=== PATIENT | male | born 1975 | race Two or more races ===

== ENCOUNTER → 2020-06-11 08:17 | Outpatient (BNVA) | payer OTHER, SELFPAY | PROVIDERS: PCP Internal Medicine; Visit Provider Anesthesiology | DX: M47.26 Other spondylosis with radiculopathy, lumbar region (principal); M51.36 Other intervertebral disc degeneration, lumbar region; Z79.891 Long term (current) use of opiate analgesic | CPT/HCPCS: 99213 ==

== ENCOUNTER → 2020-07-15 16:04 | Outpatient (BNVA) | payer OTHER, SELFPAY | PROVIDERS: PCP Internal Medicine; Visit Provider Anesthesiology | DX: Z76.89 Persons encountering health services in other specified circumstances (principal) | CPT/HCPCS: 99212 ==

== ENCOUNTER 2020-07-21 07:30 | Outpatient (REF) | payer OTHER, SELFPAY ==
--- NOTE | 2020-07-21 07:36 | FL_ITS ---
EXAMINATION: XR FLUOROSCOPY WITH IMAGES CLINICAL INFORMATION: M51.36 - Other intervertebral disc degeneration, lumbar region COMPARISON: CT abdomen and pelvis 02/24/2018 TECHNIQUE: Fluoroscopy performed by Elinor Cho NP. Fluoroscopy time: 0.3 minutes Total dose: 10.63 mGy Images: 1 FINDINGS: Recent CT may suggest transitional vertebrae L5 with bilateral sacralization. The fluoroscopic spot view shows spinal needle directed towards the interlaminar region lower lumbar spine, approximately L4-L5. FL/FL guidance in treatment room IMPRESSION: Fluoroscopy for pain management procedure.
== END 2020-07-21 07:31 | disposition home or self-care (01) ==
LOC: HO.RADIR 07:30
PROVIDERS: Visit Provider Anesthesiology
DX: M51.36 Other intervertebral disc degeneration, lumbar region (principal); M47.26 Other spondylosis with radiculopathy, lumbar region; M54.31 Sciatica, right side
CPT/HCPCS: J3300; Q9967

== ENCOUNTER → 2020-08-05 09:30 | Outpatient (BNVA) | payer OTHER, SELFPAY | PROVIDERS: PCP Internal Medicine; Visit Provider Anesthesiology | DX: M47.26 Other spondylosis with radiculopathy, lumbar region (principal); M51.36 Other intervertebral disc degeneration, lumbar region | CPT/HCPCS: 99212 ==

== ENCOUNTER → 2020-09-03 14:45 | Outpatient (BNVA) | payer OTHER, SELFPAY | PROVIDERS: PCP Internal Medicine; Visit Provider Anesthesiology | DX: M47.26 Other spondylosis with radiculopathy, lumbar region (principal); M51.36 Other intervertebral disc degeneration, lumbar region | CPT/HCPCS: 99212 ==

== ENCOUNTER → 2020-09-30 14:48 | Outpatient (BNVA) | payer OTHER, SELFPAY | PROVIDERS: PCP Internal Medicine; Visit Provider Anesthesiology | DX: M47.26 Other spondylosis with radiculopathy, lumbar region (principal); M51.36 Other intervertebral disc degeneration, lumbar region | CPT/HCPCS: 99212 ==

== ENCOUNTER → 2020-10-28 14:42 | Outpatient (BNVA) | payer OTHER, SELFPAY | PROVIDERS: PCP Internal Medicine; Visit Provider Anesthesiology | DX: M47.26 Other spondylosis with radiculopathy, lumbar region (principal); M51.36 Other intervertebral disc degeneration, lumbar region; M54.31 Sciatica, right side; G89.4 Chronic pain syndrome; Z79.891 Long term (current) use of opiate analgesic | CPT/HCPCS: 99212 ==

== ENCOUNTER → 2020-11-04 09:31 | Outpatient (BNVA) | payer OTHER, SELFPAY | PROVIDERS: PCP Internal Medicine; Visit Provider Anesthesiology | DX: M47.26 Other spondylosis with radiculopathy, lumbar region (principal); M51.36 Other intervertebral disc degeneration, lumbar region; M54.31 Sciatica, right side; G89.4 Chronic pain syndrome; Z79.899 Other long term (current) drug therapy | CPT/HCPCS: 99212 ==

== ENCOUNTER 2021-02-05 08:42 | Day surgery (SDC) | payer OTHER, SELFPAY ==
[2021-02-01 15:00] VITALS: BMI 41.9
--- NOTE | 2021-02-04 09:26 | P.CONAN_ITS ---
Documented by User: Melania Leach 02/04/21 09:26 HPI - Anesthesia Eval Consult details Narrative: 45yo M for Lumbar Spinal Cord Simulation Trial FORMERLY [facility] Active Problems Active Problems: All Active Problems (Updated 02/01/21 @ 15:03 by Marion Rivera) Chronic pain syndrome (Acute) Right sided sciatica (Acute) Depression (Acute) GERD (gastroesophageal reflux disease) (Acute) Morbid obesity (Acute) Impaired glucose tolerance (Acute) Dyslipidemia (Acute) Essential hypertension (Acute) Disc degeneration, lumbar (Acute) Other spondylosis with radiculopathy, lumbar region (Acute) Past Medical History Medical History (Updated 02/05/21 @ 10:25 by Talia Perez) Chronic pain syndrome Depression Disc degeneration, lumbar Dyslipidemia Essential hypertension GERD (gastroesophageal reflux disease) Impaired glucose tolerance Morbid obesity Other spondylosis with radiculopathy, lumbar region Renal calculi Right sided sciatica Family History Family History Father Hypertension Sciatica Mother Stroke Hypertension Diabetes Brother Stroke Pancreatic cancer Surgical History Surgical History History of appendectomy History of extraction of renal calculus History of toe surgery History of vasectomy Social History Social History (Updated 02/05/21 @ 10:27 by Talia Perez) Alcohol intake: former Patient Tobacco Use Status: Current everyday Tobacco user Tobacco use type: Cigarette Cigarettes Per Day: 5 Years Smoked: 20 Smoked in Last 30 Days: Yes Use of substances other than those prescribed or required for medical reasons: Yes Substance Use Type: Marijuana Substance Use Frequency: Daily Last Used Substance: Days (ago) Last Used Substance Other:: Yesterday Are you DNR?: No Advance Directives: No Advance Directives Information Provided: No Advance Directives on File: No Meds Allergies Allergy/AdvReac Type Severity Reaction Status Date / Time No Known Allergies Allergy Verified 02/01/21 15:04 [No Known Allergies*] Exam Exam Date and Time: February 04, 2021 0926 Height,Weight and Vital Signs: Height 5 ft 6 in Weight 117.934 kg Assessment and Plan Assessment Anesthesia Assessment: Chart Reviewed Documented by User: Talia Perez 02/05/21 10:56 [facility] Past Medical History Medical History (Updated 02/05/21 @ 10:25 by Talia Perez) Chronic pain syndrome Depression Disc degeneration, lumbar Dyslipidemia Essential hypertension GERD (gastroesophageal reflux disease) Impaired glucose tolerance Morbid obesity Other spondylosis with radiculopathy, lumbar region Renal calculi Right sided sciatica Family History Family History Father Hypertension Sciatica Mother Stroke Hypertension Diabetes Brother Stroke Pancreatic cancer Family history of problems with anesthesia: No Surgical History Surgical History History of appendectomy History of extraction of renal calculus History of toe surgery History of vasectomy History of Problems with Anesthesia: Yes (?? h/o breathing slowed down ?? during appendectomy) Social History Social History (Updated 02/05/21 @ 10:27 by Talia Perez) Alcohol intake: former Patient Tobacco Use Status: Current everyday Tobacco user Tobacco use type: Cigarette Cigarettes Per Day: 5 Years Smoked: 20 Smoked in Last 30 Days: Yes Use of substances other than those prescribed or required for medical reasons: Yes Substance Use Type: Marijuana Substance Use Frequency: Daily Last Used Substance: Days (ago) Last Used Substance Other:: Yesterday Are you DNR?: No Advance Directives: No Advance Directives Information Provided: No Advance Directives on File: No Meds Allergies Allergy/AdvReac Type Severity Reaction Status Date / Time No Known Allergies Allergy Verified 02/01/21 15:04 [No Known Allergies*] Exam Height,Weight and Vital Signs: Vital Signs Temp Pulse Resp BP Pulse Ox 02/05/21 09:13 96.6 F L 97 16 147/87 H 97 Narrative Narrative: Lungs CTAB post albuterol treatment Airway Mallampati Class: III TM Dist: >3cm Neck ROM: Limited (Ok with extension. Neck and shoulder pain with side to side movement) Loose/Missing/Broken Teeth: Yes (Top front loose) Heart: RRR Lungs: Bilateral wheezes Assessment and Plan Assessment Anesthesia Assessment: Anesthesia Plan Discussed and Chart Reviewed Final Anesthetic Review NPO: Yes ASA Class: III Final Preanesthetic Review: No Changes in Pt Med Stat, Meds/Allgs Chart Reviewed, Consent Obtained/Reviewed and Anes Risks/Benef Reviewed Patient Risk: Intermediate Procedure Risk: Low Assessment/Block/Sedation in SS: Assess/Block/Sedation-SS Anesthetic Plan Anesthetic Plan: MAC: Disposition: Standard PACU
--- NOTE | ~2021-02-05 | FL_ITS ---
EXAMINATION: XR FLUOROSCOPY WITH IMAGES CLINICAL INFORMATION: Spinal cord stimulation trial. COMPARISON: None. TECHNIQUE: Fluoroscopy performed by Dr. Diaz King. Fluoroscopy time: 1.2 minutes DAP: 11.5 mGycm2 Images: 3 FINDINGS: Images demonstrate leads projecting over the lower thoracic spinal canal. FL/FL guidance in OR IMPRESSION: Fluoroscopy guidance for spinal cord stimulation trial.
[2021-02-05 09:13] VITALS: BP 147/87; PULSE 97; RESP 16; TEMP 35.9; O2SAT 97
[2021-02-05] MEDS: Lactated Ringers 1,000 ML 100 ML IVCONT (09:31)
[2021-02-05] MEDS: Albuterol Sulfate (0.083%) 2.5 MG/3 ML VIAL.NEB INHALE (10:31)
[2021-02-05 10:32] VITALS: PULSE 76; O2SAT 98
--- NOTE | 2021-02-05 10:33 | PC.NURSE ---
receving rtesp treatment by resp.
--- NOTE | 2021-02-05 11:23 | P.HPSUR_ITS ---
Pre-Procedural Eval Section A The patient is an INPATIENT: No Changes since office visit: Yes Patient answered all questions The History & Physical has been completed within 30 days and I have reviewed it.: No Section B Chief Complaint: Disc Degeneration, other Spondylosis Details of Present Illness: as above Relevant Family History (Specify if Yes): No Relevant Social History: None Present Medications: see Short Stay Collaborative assessment Medical History: No relevant PMH History of Previous Operations: No relevant previous surgery Allergies: Allergies Allergy/AdvReac Type Severity Reaction Status Date / Time No Known Allergies Allergy Verified 02/01/21 15:04 [No Known Allergies*] Review of Systems Sugical H&P ROS: Negative: Constitution, Cardiovascular, Respiratory, Neurological, Psychiatric, Hem-Onc, Allergic/Immunologic, Gastrointestinal, Genitourinary, Musculoskeletal, Integumentary, Endocrine and Eyes/Ears/Nose /Throat Exam Surgical H&P Exam: Normal: HEENT, Normal: Heart, Normal: Lungs, Normal: Extremities, Normal: Abdomen, Normal: Skin and Normal: Neurological Plan Diagnosis/Plan: Unchanged I have reviewed the history and physical and performed a pertinent physical examination on my patient. No changes have occurred unless specified.
[2021-02-05 12:41] VITALS: BP 143/91; PULSE 85; RESP 16; TEMP 36.7; O2SAT 96
--- NOTE | 2021-02-05 12:55 | P.BOP_ITS ---
Brief Operative Note Date of Service: 02/05/21 Pre-op diagnosis: Spondylosis lumbar spine disc degeneration lumbar spine Post-op diagnosis: same Procedure: Trial of [employer] spinal cord stimulation. Implants: None per Surgeon: Diaz King MD Anesthesia: MAC Was an Phone Counselor used for this Procedure?: No Estimated blood loss (mL): 2 Condition: stable Disposition: PACU
[2021-02-05 12:56] VITALS: BP 148/94; PULSE 74; RESP 17; TEMP 36.7; O2SAT 98
--- NOTE | 2021-02-05 12:57 | W.PM.OPN ---
Operative Note Operative Note Date of Service: 02/05/21 Narrative: After obtaining informed consent patient was brought to the operating room, HE was positioned prone on operating table, [place] [employer] monitors were applied and patient was deeply sedated. Time-out was performed delineating correct site, side, the nature of the procedure, patient's allergy, preoperative antibiotic if needed. All operating room staff was participating in OR time-out procedure. Patient's entire back was prepped with ChloraPrep twice and draped with full body fenestrated drape. Sterilely draped C-arm was brought over operating field and sqare picture of T9 AND TT10 vertebrae as were demonstrated on the screen. Attention FIRST was concentrated on the T12 L1 _epidural interspace on the right. The location of the projection of the right pedicle center of the L2 vertebra was found on the skin using C-arm. This location was injected with mixture of lidocaine 2% and Marcaine 0.5% 5 cc. After that 11 blade was used to make a chyna on the skin. 10 cm 14 gauge curved introducer epidural needle was inserted through the chyna and advanced to T9-[id number] interspace. The advancement of the needle was performed on anterior posterior and lateral views. Guitar wire and loss of resistance technique were used to locate epidural space. When guitar wire was spread in the epidural fashion, epidural lead was inserted through the skin and it was advanced to T8 position SLIGHTLY right OF THE MIDLINE. After that location of the projection of the LEFT pedicle center of the L2 vertebra was found on the skin using C-arm. This location was injected with mixture of lidocaine 2% and Marcaine 0.5% 5 cc. After that 11 blade was used to make a chyna on the skin. 10 cm 14 gauge straight introducer epidural needle was inserted through the chyna and advanced to T12-L1 EPIDURAL INTERSPACE. The advancement of the needle was performed on anterior posterior and lateral views. Guitar wire and loss of resistance technique were used to locate epidural space. When guitar wire was spread in the epidural fashion, epidural lead was inserted through the needle and advanced to the T8 epidural epidural space slightly left to the midline At this moment IMPEDANCE was checked . The patient was awaken and epidural leads were stimulated. The patient reported stimulation on the right corresponding to the pain on the right lower extremity. He also reported good stimulation in the area of lower back pain. After satisfactory position of the leads were established the needles were withdrawn, the stylette wires were removed from the epidural leads. The anchoring devices were dislodged on the leads and advanced to the level of the skin. The anchoring devices were sutured with two 0-0 silk sutures to the skin of the patient. The leads were connected to testing device. Bacitracin ointment was applied to the entrance point of bilateral needles. Sterile dressing was applied to the patient's back. The testing device was also taped to the patient's back. Upon completion of the procedure the patient was taken to PACU where HE recovered uneventfully.
== END 2021-02-05 13:25 | disposition home or self-care (01) ==
PROVIDERS: PCP Internal Medicine; Visit Provider Anesthesiology
PROC: (CPT 63650; principal; 2021-02-05 10:40)
DX: M51.36 Other intervertebral disc degeneration, lumbar region (principal); M47.26 Other spondylosis with radiculopathy, lumbar region; G89.4 Chronic pain syndrome; F32.9 Major depressive disorder, single episode, unspecified; I10 Essential (primary) hypertension; E66.01 Morbid (severe) obesity due to excess calories; Z79.899 Other long term (current) drug therapy; F17.210 Nicotine dependence, cigarettes, uncomplicated; F12.90 Cannabis use, unspecified, uncomplicated
CPT/HCPCS: 63650 ×2; C1778; J0690; J1100; J2250; J2405; J3010

== ENCOUNTER → 2021-02-10 08:55 | Outpatient (BNVA) | payer OTHER, SELFPAY | PROVIDERS: PCP Internal Medicine; Visit Provider Anesthesiology | DX: M47.26 Other spondylosis with radiculopathy, lumbar region (principal); M51.36 Other intervertebral disc degeneration, lumbar region; M54.31 Sciatica, right side; G89.4 Chronic pain syndrome | CPT/HCPCS: 99212 ==

== ENCOUNTER → 2021-02-12 14:43 | Outpatient (BNVA) | payer OTHER, SELFPAY | PROVIDERS: PCP Internal Medicine; Visit Provider Anesthesiology ==

== ENCOUNTER 2021-04-04 15:36 | Inpatient (IN) | payer OTHER, SELFPAY ==
--- NOTE | ~2021-04-04 | FL_ITS ---
EXAMINATION: XR FLUOROSCOPY WITH IMAGES CLINICAL INFORMATION: Left hydronephrosis, distal left ureteral calculus on CT. COMPARISON: CT abdomen and pelvis noncontrast 04/16/2021 TECHNIQUE: Fluoroscopy performed by Dr. Giorgio Valdez. Fluoroscopy time: 0.5 minutes DAP: 4.56 Gycm2 Images: 4 FINDINGS: There is guidewire and some contrast in the left ureter. The ureteral calculus is questionably seen on one of the images at level lower SI joint. The final images show left ureteral stent in position. FL/FL guidance in OR IMPRESSION: Fluoroscopy for urologic procedure. Left ureteral stent placed.
--- NOTE | ~2021-04-04 | CT_ITS ---
EXAMINATION: CT ABDOMEN AND PELVIS WITHOUT CONTRAST CLINICAL INFORMATION: Flank pain, history of kidney stones COMPARISON: 02/24/2018 TECHNIQUE: Multidetector volumetric imaging was performed from the superior aspect of the liver through the pubic symphysis. Sagittal and coronal reformatted images were obtained on the technologist's workstation. This CT examination was performed using dose optimization techniques as appropriate, variously including the following: *Automated exposure control *Adjustment of mA and/or kV according to patient size (this includes techniques or standardized protocols for targeted exams where dose is matched to indication/reason for exam; i.e. extremities or head) *Use of iterative reconstruction technique DLP: 538 mGy-cm FINDINGS: LUNG BASES: Stable nodularity right lung base LIVER, GALLBLADDER, AND BILIARY TREE: The liver is normal in size, shape, and attenuation. No focal hepatic lesion or biliary ductal dilatation is present. The gallbladder is unremarkable with no evidence of radiopaque gallstones, gallbladder wall thickening, or obvious pericholecystic inflammatory changes. PANCREAS: Unremarkable. SPLEEN: Unremarkable. ADRENAL GLANDS: Unremarkable. KIDNEYS AND URETERS: Mild hydronephrosis on the left. Ureter is prominent. This does lead up to a 5 mm calculus distal left ureter. BLADDER: Unremarkable. GASTROINTESTINAL TRACT: The small and large bowel are unremarkable. The appendix is unremarkable. ABDOMINAL WALL: No significant hernia is appreciated. LYMPH NODES: Normal. VASCULAR: Unremarkable. PELVIC VISCERA: Unremarkable. OSSEOUS STRUCTURES: Unremarkable. CT/CT abdomen pelvis wo con IMPRESSION: Mild hydronephrosis on the left caused by a 5 mm calculus in the distal left ureter.
[2021-04-04 15:38] VITALS: BP 150/90; PULSE 96; O2SAT 98
[2021-04-04 15:51] VITALS: BP 178/99; PULSE 65; RESP 20; TEMP 36.7; O2SAT 97
[2021-04-04 17:11] VITALS: O2SAT 100; BMI 40.3
--- NOTE | 2021-04-04 17:21 | ED.ABDPAIN ---
HPI - Abdominal Pain General Chief Complaint: Abdominal Pain Stated Complaint: abd pain Time Seen by Provider: 04/04/21 17:14 Source: patient Mode of arrival: ambulatory Limitations: no limitations History of Present Illness HPI narrative: pt with hx of kidney stones notied sharp pain started yesterday in L LQ radiating to L flank with nausea and vomiting multiple times.no diarrhea /hematuria , feels pain similar to that in past when he had stone, pt passed small stones 2 yrs ago Related Data Home Medications Medication Instructions Recorded Confirmed hydroxyzine pamoate 25 mg capsule 25 mg PO TID 04/04/21 mirtazapine 15 mg tablet 7.5 mg PO BEDTIME 04/04/21 Previous Rx's Medication Instructions Recorded omeprazole 40 mg capsule,delayed 40 mg PO QAM #90 cap 09/02/20 release lisinopril 40 mg tablet 40 mg PO DAILY 90 Days #90 tab 09/22/20 amlodipine 10 mg tablet 10 mg PO DAILY 90 Days #90 tab 12/28/20 gabapentin 300 mg capsule 300 mg PO BEDTIME 90 Days #90 cap 12/28/20 gabapentin 100 mg capsule 100 mg PO BID 90 Days #180 cap 03/31/21 Allergies Allergy/AdvReac Type Severity Reaction Status Date / Time No Known Allergies Allergy Verified 02/12/21 15:35 [No Known Allergies*] Review of Systems Review of Systems Constitutional : No Weight loss, No Fever, No Chills ENT/Mouth : No sore throat, No Rhinorrhea Eyes: No Eye Pain, No Swelling Cardiovascular : No Chest Pain, no palpitations Respiratory : No Cough, No Sputum, no shortness of breath Gastrointestinal : + Nausea, + Vomiting, No Diarrhea, No abdominal Pain, no black stools Genitourinary : No Dysuria, No Urinary Frequency Musculoskeletal : No joint pain, No Myalgias, No Joint Swelling Skin : No Skin Lesions, No rash Neuro : No Weakness, No Numbness, No Dizziness, No Headache Psych : No Anxiety/Panic, No Depression Heme/Lymph: No Bruising, No Lymphadenopathy Endocrine : No Polyuria, No Polydipsia All other systems reviewed and are negative Physical Exam Vital Signs: Vital Signs: Last Vital Signs Temp 97.9 F 04/04/21 23:04 Pulse 76 04/04/21 23:04 Resp 18 04/04/21 23:04 BP 126/65 04/04/21 23:04 Pulse Ox 93 04/04/21 23:04 Body Mass Index 40.3 Const: General: healthy appearing and acute distress moderate Nutritional Appearance: average body habitus and well nourished Orientation/consciousness: patient oriented x3 HENMT: Head: Yes atraumatic Mouth: Normal oral and palatal mucosa present Eyes: General: appearance normal, both eyes and all related structures Resp: Effort & Inspection: able to speak in complete sentences Auscultation: clear to auscultation bilaterally Cardio: Jugular venous distension: no JVD Rate: regular rate Rhythm: regular rhythm Heart sounds: S1 normal heart sound present and S2 normal heart sound present GI: Inspection: Yes normal to inspection Palpation (GI): Soft to palpation and Tenderness to palpation present (GI) in the LLQ Auscultation: normal bowel sounds : General: Yes CVA tenderness on the left Back/Spine/Pelvis: Back: CVA tenderness Thoracic/Lumbar Spine: No thoracic spinal tenderness and No lumbar spinal tenderness Neuro: General: patient oriented x3 MDM - Abdominal Pain MDM Narrative Medical decision making narrative: Patient with obstructive left ureteric stone with leukocytosis and UTI will admit patient for IV antibiotics case discussed Dr. Valdez urologist will follow the patient on the floor patient feeling much better after pain medication although required multiple doses Lab Data Attestation: I reviewed the patient's lab results. Result diagrams: 04/04/21 17:20 04/04/21 17:20 Labs: Lab Results 04/04/21 04/04/21 04/04/21 Range/Units 17:20 17:20 20:47 WBC 19.1 H (4.8-10.8) X10*3/uL RBC 5.47 (4.60-5.80) X10*6/uL Hgb 16.1 (14.0-18.0) g/dl Hct 47.8 (42-52) % MCV 87.4 (80-98) fL MCH 29.4 (27.0-33.0) pg MCHC 33.7 (31.0-36.0) g/dl RDW 13.4 (11.0-16.0) % Plt Count 449 H (160-400) X10*3/uL MPV 10.0 (9.4-12.4) fL Immature Gran % (Auto) 0.5 H (0.0-0.4) % Neut % (Auto) 74.4 H (45-73) % Lymph % (Auto) 19.2 L (20-40) % [place]ison % (Auto) 4.3 (2-11) % Eos % (Auto) 1.0 (0-4) % Baso % (Auto) 0.6 (0-2) % Lymph # (Auto) 3.7 (1.2-4.9) X10*3/uL Addison # (Auto) 0.8 (0.1-1.2) X10*3/uL Eos # (Auto) 0.2 (0.0-0.4) X10*3/uL Baso # (Auto) 0.1 (0.0-0.2) X10*3/uL Abs Immat Gran (auto) 0.09 H (0.00-0.03) X10*3/uL Absolute Neuts (auto) 14.2 H (2.0-8.3) X10*3/uL Absolute Nucleated RBC 0.000 (0.0-0.012) X10*3/uL Nucleated RBC % (auto) 0.0 (0.0-0.2) /100WBC Sodium 142 (135-145) mmol/L Potassium 4.7 (3.3-5.1) mmol/L Chloride 108 (96-108) mmol/L Carbon Dioxide 19 L (22-29) mmol/L Anion Gap 20 (12-20) BUN 14 (9-16) mg/dL Creatinine 1.30 (0.5-1.4) mg/dL Estim Creat Clear Calc 83.9 Estimated GFR 59 Random Glucose 174 H (60-115) mg/dL Lactic Acid (0.5-2.0) mmol/L Calcium 9.8 (8.4-10.2) mg/dL Urine Color ACE Urine Appearance TURBID Urine pH 6.5 (5.0-8.0) Ur Specific [place] >= 1.030 H (1.005-1.025) Urine Protein 3+ H (NEG-TRACE) MG/DL Urine Glucose (UA) NEG (NEG) MG/DL Urine Ketones 40 (NEG) MG/DL Urine Blood 3+ H (NEG) Urine Nitrite POS H (NEG) Ur Leukocyte Esterase TRACE H (NEG) Urine RBC TNTC H (0) /HPF Urine WBC 10-14 H (0-4) /HPF Ur Squamous Epith Cells TRACE /LPF Amorphous Sediment 2+ /LPF Urine Bacteria TRACE /LPF Urine Mucus 2+ /LPF Coronavirus (PCR) (Negative) Influenza Type A (PCR) (Negative) Influenza Type B (PCR) (Negative) RSV RNA Qual (PCR) (Negative) 04/04/21 04/04/21 Range/Units 21:58 22:50 WBC (4.8-10.8) X10*3/uL RBC (4.60-5.80) X10*6/uL Hgb (14.0-18.0) g/dl Hct (42-52) % MCV (80-98) fL MCH (27.0-33.0) pg MCHC (31.0-36.0) g/dl RDW (11.0-16.0) % Plt Count (160-400) X10*3/uL MPV (9.4-12.4) fL Immature Gran % (Auto) (0.0-0.4) % Neut % (Auto) (45-73) % Lymph % (Auto) (20-40) % Addison % (Auto) (2-11) % Eos % (Auto) (0-4) % Baso % (Auto) (0-2) % Lymph # (Auto) (1.2-4.9) X10*3/uL [place] # (Auto) (0.1-1.2) X10*3/uL Eos # (Auto) (0.0-0.4) X10*3/uL Baso # (Auto) (0.0-0.2) X10*3/uL Abs Immat Gran (auto) (0.00-0.03) X10*3/uL Absolute Neuts (auto) (2.0-8.3) X10*3/uL Absolute Nucleated RBC (0.0-0.012) X10*3/uL Nucleated RBC % (auto) (0.0-0.2) /100WBC Sodium (135-145) mmol/L Potassium (3.3-5.1) mmol/L Chloride (96-108) mmol/L Carbon Dioxide (22-29) mmol/L Anion Gap (12-20) BUN (9-16) mg/dL Creatinine (0.5-1.4) mg/dL Estim Creat Clear Calc Estimated GFR Random Glucose (60-115) mg/dL Lactic Acid 0.8 (0.5-2.0) mmol/L Calcium (8.4-10.2) mg/dL Urine Color Urine Appearance Urine pH (5.0-8.0) Ur Specific [place] (1.005-1.025) Urine Protein (NEG-TRACE) MG/DL Urine Glucose (UA) (NEG) MG/DL Urine Ketones (NEG) MG/DL Urine Blood (NEG) Urine Nitrite (NEG) Ur Leukocyte Esterase (NEG) Urine RBC (0) /HPF Urine WBC (0-4) /HPF Ur Squamous Epith Cells /LPF Amorphous Sediment /LPF Urine Bacteria /LPF Urine Mucus /LPF Coronavirus (PCR) NEGATIVE (Negative) Influenza Type A (PCR) NEGATIVE (Negative) Influenza Type B (PCR) NEGATIVE (Negative) RSV RNA Qual (PCR) NEGATIVE (Negative) Imaging Data CT scan - abdomen: Radiologist's impression: Patient: Jose Irizarry MR#: [id number] : 1975 Acct:[id number] Age/Sex: 46 / M ADM Date: 04/04/21 Loc: HO.ED Attending Dr: Ordering Physician: Andrzej Perry MD Date of Service: 04/04/21 Procedure(s): CT abdomen pelvis wo con Accession Number(s): [id number] cc: Andrzej Perry MD~ EXAMINATION: CT ABDOMEN AND PELVIS WITHOUT CONTRAST? CLINICAL INFORMATION: Flank pain, history of kidney stones? COMPARISON: 02/24/2018? TECHNIQUE: Multidetector volumetric imaging was performed from the superior aspect of the liver through the pubic symphysis. Sagittal and coronal reformatted images were obtained on the technologist's workstation.? This CT examination was performed using dose optimization techniques as appropriate, variously including the following: *Automated exposure control *Adjustment of mA and/or kV according to patient size (this includes techniques or standardized protocols for targeted exams where dose is matched to indication/reason for exam; i.e. extremities or head) *Use of iterative reconstruction technique DLP: 538 mGy-cm FINDINGS: LUNG BASES: Stable nodularity right lung base? LIVER, GALLBLADDER, AND BILIARY TREE: The liver is normal in size, shape, and attenuation. No focal hepatic lesion or biliary ductal dilatation is present. The gallbladder is unremarkable with no evidence of radiopaque gallstones, gallbladder wall thickening, or obvious pericholecystic inflammatory changes.? PANCREAS: Unremarkable.? SPLEEN: Unremarkable.? ADRENAL GLANDS: Unremarkable.? KIDNEYS AND URETERS: Mild hydronephrosis on the left. Ureter is prominent. This does lead up to a 5 mm calculus distal left ureter.? BLADDER: Unremarkable.? GASTROINTESTINAL TRACT: The small and large bowel are unremarkable. The appendix is unremarkable.? ABDOMINAL WALL: No significant hernia is appreciated.? LYMPH NODES: Normal. VASCULAR: Unremarkable. PELVIC VISCERA: Unremarkable.? OSSEOUS STRUCTURES: Unremarkable.? CT/CT abdomen pelvis wo con IMPRESSION: Mild hydronephrosis on the left caused by a 5 mm calculus in the distal left ureter.? Discharge Plan Discharge Clinical Impression: Calculus of kidney, Acute UTI Patient Disposition: Admitted As Inpatient FORMERLY [facility] Past Medical History Medical History Chronic pain syndrome Depression Disc degeneration, lumbar Dyslipidemia Essential hypertension GERD (gastroesophageal reflux disease) Impaired glucose tolerance Morbid obesity Other spondylosis with radiculopathy, lumbar region Renal calculi Right sided sciatica Surgical History History of appendectomy History of extraction of renal calculus History of toe surgery History of vasectomy Family History Family History Father Hypertension Sciatica Mother Stroke Hypertension Diabetes Brother Stroke Pancreatic cancer Social History Social History Alcohol intake: former Patient Tobacco Use Status: Current everyday Tobacco user Tobacco use type: Cigarette Cigarettes Per Day: 5 Years Smoked: 20 Substance Use Type: Marijuana Advance Directives: No Advance Directives Information Provided: No
[2021-04-04 17:23] LABS: MANUAL DIFF FLAG NO
[2021-04-04] MEDS: Ketorolac Tromethamine 15 MG/ML VIAL IVPUSH (17:25)
[2021-04-04] MEDS: Morphine Sulfate 4 MG/ML CARTRIDGE IVPUSH ×2 (17:26→19:09)
[2021-04-04] MEDS: 0.9 % Sodium Chloride 1,000 ML 999 ML IVCONT ×2 (17:27→20:32)
[2021-04-04 17:29] LABS: Basophils Absolute Auto 0.1 X10*3/uL (0.0-0.2); Basophils Percent Auto 0.6 % (0-2); Eosinophils Absolute Auto 0.2 X10*3/uL (0.0-0.4); Hematocrit 47.8 % (42-52); Hemoglobin 16.1 g/dl (14.0-18.0); Imm Gran Abs Auto 0.09 X10*3/uL (0.00-0.03); Imm Gran Pct Auto 0.5 % (0.0-0.4); Lymphocytes Absolute Auto 3.7 X10*3/uL (1.2-4.9); Lymphocytes Percent Auto 19.2 % (20-40); Mean Corpuscular HGB Conc 33.7 g/dl (31.0-36.0); Mean Corpuscular Hemoglobin 29.4 pg (27.0-33.0); Mean Corpuscular Volume 87.4 fL (80-98); Monocytes Absolute Auto 0.8 X10*3/uL (0.1-1.2); Monocytes Percent Auto 4.3 % (2-11); Neutrophils Absolute Auto 14.2 X10*3/uL (2.0-8.3); Neutrophils Percent Auto 74.4 % (45-73); Platelet Count 449 X10*3/uL (160-400); Red Blood Count 5.47 X10*6/uL (4.60-5.80); Red Cell Distribution Width 13.4 % (11.0-16.0); White Blood Count 19.1 X10*3/uL (4.8-10.8)
[2021-04-04 17:52] LABS: Anion Gap 20 (12-20); Blood Urea Nitrogen 14 mg/dL (9-16); Calcium 9.8 mg/dL (8.4-10.2); Carbon Dioxide 19 mmol/L (22-29); Chloride 108 mmol/L (96-108); Creatinine Clr Calc Pharmacy 83.9; Estimated Glomerular Filt Rate 59; Glucose Random 174 mg/dL (60-115); Potassium 4.7 mmol/L (3.3-5.1); Sodium 142 mmol/L (135-145)
[2021-04-04] MEDS: Tamsulosin HCL 0.4 MG CAPSULE 0.8 MG PO (18:45)
--- NOTE | 2021-04-04 19:55 | PC.NURSE ---
Pt requesting pain medication, MD aware. Plan for Dilaudid, awaiting order.
--- NOTE | 2021-04-04 20:23 | PC.NURSE ---
Pt remains calling out in room for pain medication. This RN reminding MD, awaiting order.
[2021-04-04] MEDS: HYDROmorphone HCl 1 MG/ML SYRINGE IVPUSH (20:32)
[2021-04-04 20:35] VITALS: BP 154/102; PULSE 77; RESP 24; O2SAT 95
--- NOTE | 2021-04-04 20:37 | PC.NURSE ---
Pt medicated for 10/10 pain to left flank. VSS at this time. Pt aware of urine sample, provided with urinal. Call nieves within reach, continue to monitor.
--- NOTE | 2021-04-04 20:50 | PC.NURSE ---
UA obtained and sent. Urine noted to be dark brown in color, aware.
[2021-04-04 20:53] LABS: Glucose Urine UA NEG (NEG); Leukocyte Esterase Urine TRACE (NEG); Nitrite Urine POS (NEG); PH 6.5 (5.0-8.0); Specific Gravity - Urine >= 1.030 (1.005-1.025); UACC Culture Trigger YES; Urine Blood 3+ (NEG); Urine Ketones 40 MG/DL (NEG); Urine Protein 3+ MG/DL (NEG-TRACE)
[2021-04-04 21:02] LABS: Appearance Urine TURBID
[2021-04-04 21:03] LABS: Bacteria Urine TRACE /LPF; Color Urine AMBER; Mucus Urine 2+ /LPF; RBC Urine TNTC /HPF (0); Squamous Epithelial Cell Urine TRACE /LPF
[2021-04-04 21:04] LABS: Amorphous Sediment Urine 2+ /LPF
[2021-04-04] MEDS: cefTRIAXone sodium 1 GM in 0.9 % Sodium Chloride 50 ML IV (22:11)
--- NOTE | 2021-04-04 22:12 | PC.NURSE ---
BCX x 2 and lactic obtained by set up mold technician. Pt medicated per OCT.
[2021-04-04 22:22] LABS: Lactic Acid 0.8 mmol/L (0.5-2.0)
--- NOTE | 2021-04-04 22:51 | PC.NURSE ---
Covid swab obtained and sent. Med Rec completed at bedside with pt.
[2021-04-04 23:04] VITALS: BP 126/65; PULSE 76; RESP 18; TEMP 36.6; O2SAT 93
--- NOTE | 2021-04-04 23:27 | PC.NURSE ---
Hospitalist at bedside for primary eval.
[2021-04-04 23:42] LABS: Influenza A PCR NEGATIVE (Negative); Influenza B PCR NEGATIVE (Negative); Resp Syncy Virus RNA Qual PCR NEGATIVE (Negative); SARS COV2 PCR INHOUSE NEGATIVE (Negative)
--- NOTE | 2021-04-04 23:44 | PM.IMHP ---
History of Present Illness Date of Service: 04/04/21 Chief Complaint: Left flank pain 46-year-old male with a past medical history of hypertension, hyperlipidemia, GERD, obesity, glucose intolerance, history of renal calculi, chronic pain syndrome, history of sciatica presented to the hospital with a chief complaint of left flank pain. Patient mentions that symptoms started yesterday; left flank pain, sharp in natu, 7/10 in intensity, no associated nausea vomiting; denies any associated burning frequency ordered. Today he had the pain again which is 10/10 in intensity; hence came to the ER for further evaluation. Denies any blood in the urine. Denies any chest pain palpitations. Reports mild dizziness/lightheadedness. Denies any falls or loss of consciousness. Denies any cough or sputum production. Review of all other systems is negative except mentioned above ER course: Per ER team patient noted to have leukocytosis, abnormal urinalysis consistent with UTI, given ceftriaxone; CT scan showed left-sided distal ureter 5 mm calculus and mild hydronephrosis; admitted for further management. [facility] Medical History (Updated 04/28/21 @ 11:13 by Lucia Severino MD) Chronic pain syndrome Depression Disc degeneration, lumbar Dyslipidemia Essential hypertension GERD (gastroesophageal reflux disease) Impaired glucose tolerance Mild recurrent major depression Moderately severe major depression Morbid obesity Other spondylosis with radiculopathy, lumbar region Renal calculi Right sided sciatica Wheezing Family History Father Hypertension Sciatica Mother Stroke Hypertension Diabetes Brother Stroke Pancreatic cancer Family/Other Substance use disorder Surgical History History of appendectomy History of extraction of renal calculus History of toe surgery History of vasectomy Social History Household Members: Family Housing: House Do you presently have visiting nurse or other home services: No Alcohol intake: former Patient Tobacco Use Status: Current everyday Tobacco user Tobacco use type: Cigarette Cigarette Packs Per Day: 1 Cigarettes Per Day: 3 Years Smoked: 20 e-Cigarette/Vaping Use: Never Used Second Hand Smoke Exposure: Yes Substance Use Type: Marijuana service: No Current occupational status: unemployed Meds Allergies Allergy/AdvReac Type Severity Reaction Status Date / Time No Known Allergies Allergy Verified 04/28/21 10:00 [No Known Allergies*] Active Medications: Current Medications Generic Name Dose Route Start Last Admin Trade Name Iker PRN Reason Stop Dose Admin Acetaminophen 650 mg 04/04/21 23:41 Acetaminophen 325 Mg Tablet PO Q6H PRN Pain, Mild (Pain Scale 1-3) Hydromorphone HCl 0.5 mg 04/04/21 23:41 Hydromorphone Hcl 0.5 Mg/0.5 Ml Syringe IVPUSH Q4H PRN Pain, Severe (Pain Scale 7-10) Dextrose/Sodium Chloride 1,000 mls @ 75 mls/hr 04/04/21 23:45 D5ns IVCONT .[id number] DEONTE Ceftriaxone Sodium 1 gm/ 50 mls @ 100 mls/hr 04/04/21 23:45 Sodium Chloride IV Q24H DEONTE Melatonin 6 mg 04/04/21 23:41 Melatonin 3 Mg Tablet PO BEDTIME PRN Insomnia Senna 17.2 mg 04/04/21 23:41 Sennosides 8.6 Mg Tablet PO BEDTIME PRN Constipation Sodium Chloride 3 ml 04/05/21 00:00 0.9 % Sodium Chloride Flush 3 Ml Syringe IVFLUSH QSHIFT [facility] Home Medications Medication Instructions Recorded Confirmed Last Taken Type hydroxyzine pamoate 25 mg capsule 25 mg PO TID 04/04/21 04/28/21 04/04/21 07:00 History acetaminophen 500 mg tablet 1 tab PO Q6H PRN 04/05/21 04/28/21 Unknown History sertraline 50 mg tablet 50 mg PO DAILY 04/05/21 04/28/21 04/04/21 History mirtazapine 15 mg tablet 15 mg PO BEDTIME 04/12/21 04/28/21 Unknown History Physical Exam Vital Signs and Narrative: Vital Signs: Last Vital Signs Temp 97.9 F 04/04/21 23:04 Pulse 76 04/04/21 23:04 Resp 18 04/04/21 23:04 BP 126/65 04/04/21 23:04 Pulse Ox 93 04/04/21 23:04 Body Mass Index 40.3 Gen: Appears be in no acute distress HEENT: NCAT, Moist mucosa. Pulmonary: Vesicular breath sounds, fair air entry CVS: Normal S1-S2 Abdomen: BS+, Soft, tender in the left flank Extremities: Warm well perfused Neuro: Alert and awake. Results Labs CBC and Chem 7: 04/06/21 08:07 04/06/21 08:07 Labs: Laboratory Results - last 24 hr 04/04/21 04/04/21 04/04/21 17:20 17:20 20:47 MCV 87.4 MCH 29.4 MCHC 33.7 RDW 13.4 Plt Count 449 H MPV 10.0 Immature Gran % (Auto) 0.5 H Neut % (Auto) 74.4 H Lymph % (Auto) 19.2 L [place] % (Auto) 4.3 Eos % (Auto) 1.0 Baso % (Auto) 0.6 Lymph # (Auto) 3.7 [place] # (Auto) 0.8 Eos # (Auto) 0.2 Baso # (Auto) 0.1 Abs Immat Gran (auto) 0.09 H Absolute Neuts (auto) 14.2 H Absolute Nucleated RBC 0.000 Nucleated RBC % (auto) 0.0 Anion Gap 20 Estim Creat Clear Calc 83.9 Estimated GFR 59 Random Glucose 174 H Lactic Acid Calcium 9.8 Urine Color ACE Urine Appearance TURBID Urine pH 6.5 Ur Specific Barry >= 1.030 H Urine Protein 3+ H Urine Glucose (UA) NEG Urine Ketones 40 Urine Blood 3+ H Urine Nitrite POS H Ur Leukocyte Esterase TRACE H Urine RBC TNTC H Urine WBC 10-14 H Ur Squamous Epith Cells TRACE Amorphous Sediment 2+ Urine Bacteria TRACE Urine Mucus 2+ Coronavirus (PCR) Influenza Type A (PCR) Influenza Type B (PCR) RSV RNA Qual (PCR) 04/04/21 04/04/21 21:58 22:50 MCV MCH MCHC RDW Plt Count MPV Immature Gran % (Auto) Neut % (Auto) Lymph % (Auto) [place] % (Auto) Eos % (Auto) Baso % (Auto) Lymph # (Auto) [place] # (Auto) Eos # (Auto) Baso # (Auto) Abs Immat Gran (auto) Absolute Neuts (auto) Absolute Nucleated RBC Nucleated RBC % (auto) Anion Gap Estim Creat Clear Calc Estimated GFR Random Glucose Lactic Acid 0.8 Calcium Urine Color Urine Appearance Urine pH Ur Specific Barry Urine Protein Urine Glucose (UA) Urine Ketones Urine Blood Urine Nitrite Ur Leukocyte Esterase Urine RBC Urine WBC Ur Squamous Epith Cells Amorphous Sediment Urine Bacteria Urine Mucus Coronavirus (PCR) NEGATIVE Influenza Type A (PCR) NEGATIVE Influenza Type B (PCR) NEGATIVE RSV RNA Qual (PCR) NEGATIVE Imaging Radiologist's Impressions: Impressions Abdomen/Pelvis CT 04/04/21 17:19 IMPRESSION: Mild hydronephrosis on the left caused by a 5 mm calculus in the distal left ureter. Assessment and Plan (1) Acute UTI: Status: Acute 46-year-old male with a past medical history of hypertension, hyperlipidemia, GERD, history of renal calculi, obesity presented to the hospital with a chief complaint of left flank pain; noted to have left distal ureteral calculus/mild hydronephrosis/UTI; admitted for further management. Left distal ureter renal calculus/hydronephrosis/UTI: Pain control Continue ceftriaxone Follow-up cultures Urology consult Hypertension: Will hold home antihypertensives in order to provide room for blood pressure given infection. All other chronic conditions, home medications will be continued DVT prophylaxis: SCD boots Code status: Full code Quality Stroke Does the patient have a stroke diagnosis?: No VTE Prior VTE?: No VTE Risk Level:: Medical - moderate - high VTE Device Contraindication: N/A - Device Ordered VTE Drug Contraindication: Treatment Not Indicated
[2021-04-05] VITALS (17 sets, daily range): BP systolic 95–144; BP diastolic 47–81; PULSE 60–126; RESP 16–20; TEMP 35.9–36.9; O2SAT 90–100
[2021-04-05] MEDS: Melatonin 3 MG TABLET 6 MG PO ×2 (00:11→20:32)
[2021-04-05] MEDS: Acetaminophen 325 MG TABLET 650 MG PO (00:12)
[2021-04-05] MEDS: HYDROmorphone HCl 0.5 MG/0.5 ML SYRINGE IVPUSH ×3 (00:12→09:53)
--- NOTE | 2021-04-05 00:15 | PC.NURSE ---
Medicated per MAR for 8/10 pain.
[2021-04-05] MEDS: Dextrose 5 % and 0.9 % NaCl 1,000 ML 75 ML IVCONT ×2 (00:46→16:32)
[2021-04-05] MEDS: 0.9 % Sodium Chloride Flush 3 ML SYRINGE IVFLUSH ×4 (00:47→20:30)
[2021-04-05] MEDS: Omeprazole 40 MG CAPSULE.DR PO (05:36)
[2021-04-05 06:49] LABS: MANUAL DIFF FLAG NO
[2021-04-05 06:51] LABS: Basophils Absolute Auto 0.1 X10*3/uL (0.0-0.2); Basophils Percent Auto 0.4 % (0-2); Eosinophils Absolute Auto 0.1 X10*3/uL (0.0-0.4); Eosinophils Percent Auto 0.5 % (0-4); Hematocrit 42.2 % (42-52); Hemoglobin 13.9 g/dl (14.0-18.0); Imm Gran Abs Auto 0.05 X10*3/uL (0.00-0.03); Imm Gran Pct Auto 0.3 % (0.0-0.4); Lymphocytes Absolute Auto 3.9 X10*3/uL (1.2-4.9); Lymphocytes Percent Auto 25.3 % (20-40); Mean Corpuscular HGB Conc 32.9 g/dl (31.0-36.0); Mean Corpuscular Hemoglobin 29.3 pg (27.0-33.0); Mean Corpuscular Volume 88.8 fL (80-98); Mean Platelet Volume 10.2 fL (9.4-12.4); Monocytes Absolute Auto 1.2 X10*3/uL (0.1-1.2); Neutrophils Percent Auto 65.5 % (45-73); Platelet Count 382 X10*3/uL (160-400); Red Blood Count 4.75 X10*6/uL (4.60-5.80); Red Cell Distribution Width 13.7 % (11.0-16.0); White Blood Count 15.3 X10*3/uL (4.8-10.8)
[2021-04-05 07:27] LABS: Anion Gap 14 (12-20); Blood Urea Nitrogen 15 mg/dL (9-16); Calcium 8.9 mg/dL (8.4-10.2); Carbon Dioxide 22 mmol/L (22-29); Chloride 108 mmol/L (96-108); Creatinine Clr Calc Pharmacy 73.7; Estimated Glomerular Filt Rate 51; Glucose Random 167 mg/dL (60-115); Sodium 140 mmol/L (135-145)
--- NOTE | 2021-04-05 08:04 | PHA.MEDREC ---
Pharmacy Consult ? Medication Reconciliation Pharmacy has completed the medication reconciliation.
--- NOTE | 2021-04-05 08:07 | PM.UROCN ---
History of Present Illness Consult details Consult date: 04/05/21 Reason for consult: abdominal pain Narrative: Jose is a pleasant male. Presents to the emergency room with 48 hour history of left flank pain associated nausea, vomiting. Pain to 8/10. Not responsive to any form of therapy. In the emergency room has responded to IV fluids and IV pain relief. Has previously passed stones. Last stone event was 2018. Laboratories today show elevated creatinine of 1.5, white cells 15.3, calcium 8.9 UA shows positive nitrites consistent with concomitant urinary infection. Antibiotics have been administered. CT scan with 5 mm distal left ureteric stone stone and mild hydroureteronephrosis with perinephric stranding. Based on the location of the stone, elevation of creatinine and slight white cell elevation would recommend intervention. Ureteroscopy with laser lithotripsy and stent placement has been discussed with the patient. This will be planned for later today. Review of Systems Constitutional: Constitutional: Denies chills and Denies fever(s) Cardiovascular: Cardiovascular: Reports no additional cardiovascular complaints and Denies syncope Respiratory: Respiratory: Denies cough Gastrointestinal: Gastrointestinal: Denies abdominal pain and Denies heartburn Genitourinary: Genitourinary: Reports as per HPI and Denies change in libido Neurologic: Denies syncope Psychiatric: Psychiatric: Denies change in libido Endocrine: Endocrine: Denies change in libido [facility] Past Medical History Medical History Chronic pain syndrome Depression Disc degeneration, lumbar Dyslipidemia Essential hypertension GERD (gastroesophageal reflux disease) Impaired glucose tolerance Morbid obesity Other spondylosis with radiculopathy, lumbar region Renal calculi Right sided sciatica Family History Family History Father Hypertension Sciatica Mother Stroke Hypertension Diabetes Brother Stroke Pancreatic cancer Surgical History Surgical History History of appendectomy History of extraction of renal calculus History of toe surgery History of vasectomy Social History Social History Alcohol intake: former Patient Tobacco Use Status: Current everyday Tobacco user Tobacco use type: Cigarette Cigarettes Per Day: 5 Years Smoked: 20 Substance Use Type: Marijuana Advance Directives: No Advance Directives Information Provided: No Meds Allergies Allergy/AdvReac Type Severity Reaction Status Date / Time No Known Allergies Allergy Verified 02/12/21 15:35 [No Known Allergies*] Active Medications: Current Medications Generic Name Dose Route Start Last Admin Trade Name Frekeke PRN Reason Stop Dose Admin Acetaminophen 650 mg 04/04/21 23:41 04/05/21 00:12 Acetaminophen 325 Mg Tablet PO 650 mg Q6H PRN Administration Pain, Mild (Pain Scale 1-3) Gabapentin 300 mg 04/05/21 21:00 Gabapentin 300 Mg Capsule PO BEDTIME DEONTE Gabapentin 100 mg 04/05/21 09:00 Gabapentin 100 Mg Capsule PO BID@0900,1500 DEONTE Hydromorphone HCl 0.5 mg 04/04/21 23:41 04/05/21 05:36 Hydromorphone Hcl 0.5 Mg/0.5 Ml Syringe IVPUSH 0.5 mg Q4H PRN Administration Pain, Severe (Pain Scale 7-10) Dextrose/Sodium Chloride 1,000 mls @ 75 mls/hr 04/04/21 23:45 04/05/21 00:46 D5ns IVCONT 75 mls/hr .[id number] DEONTE Administration Ceftriaxone Sodium 1 gm/ 50 mls @ 100 mls/hr 04/05/21 21:00 Sodium Chloride IV Q24H DEONTE Melatonin 6 mg 04/04/21 23:41 04/05/21 00:11 Melatonin 3 Mg Tablet PO 6 mg BEDTIME PRN Administration Insomnia Omeprazole 40 mg 04/05/21 06:30 04/05/21 05:36 Omeprazole 40 Mg Capsule.Dr PO 40 mg DAILY@0630 [facility] Administration Senna 17.2 mg 04/04/21 23:41 Sennosides 8.6 Mg Tablet PO BEDTIME PRN Constipation Sodium Chloride 3 ml 04/05/21 00:00 04/05/21 00:47 0.9 % Sodium Chloride Flush 3 Ml Syringe IVFLUSH 3 ml QSHIFT [facility] Administration Home Medications Medication Instructions Recorded Confirmed Last Taken Type hydroxyzine pamoate 25 mg capsule 25 mg PO TID 04/04/21 04/05/21 04/04/21 07:00 History acetaminophen 500 mg tablet 1 tab PO Q6H PRN 04/05/21 04/05/21 Unknown History sertraline 50 mg tablet 50 mg PO DAILY 04/05/21 04/05/21 04/04/21 History Physical Exam Vital Signs: Vital Signs: Last Vital Signs Temp 97.9 F 04/04/21 23:04 Pulse 60 04/05/21 05:40 Resp 20 04/05/21 05:40 BP 144/81 H 04/05/21 05:40 Pulse Ox 93 04/04/21 23:04 Body Mass Index 40.3 Const: General: cooperative, healthy appearing, comfortable and no acute distress Orientation/consciousness: patient oriented x3 HENMT: Face and sinus: Yes normal facial exam Mouth: moist mucous membranes Neck: Neck: Yes normal visual inspection, Yes full ROM and Yes trachea midline Chest: Chest palpation & inspection: normal inspection of the chest Resp: Effort & Inspection: normal respiratory effort, able to speak in complete sentences and no respiratory distress GI: Inspection: Yes normal to inspection Back/Spine/Pelvis: Cervical Spine: normal cervical lordosis Thoracic/Lumbar Spine: thoracic and lumbar spine normal to inspection Skin: General skin exam: no rashes or lesions noted Neuro: General: patient oriented x3, gait normal, tone normal and moves all extremities Extrem: General: Yes normal to inspection and Yes capillary refill normal Results Labs Result diagrams: 04/05/21 06:12 04/05/21 06:12 Labs: Abnormal lab results 04/04/21 04/04/21 04/04/21 Range/Units 17:20 17:20 20:47 WBC 19.1 H (4.8-10.8) X10*3/uL Hgb (14.0-18.0) g/dl Plt Count 449 H (160-400) X10*3/uL Immature Gran % (Auto) 0.5 H (0.0-0.4) % Neut % (Auto) 74.4 H (45-73) % Lymph % (Auto) 19.2 L (20-40) % Abs Immat Gran (auto) 0.09 H (0.00-0.03) X10*3/uL Absolute Neuts (auto) 14.2 H (2.0-8.3) X10*3/uL Carbon Dioxide 19 L (22-29) mmol/L Creatinine (0.5-1.4) mg/dL Random Glucose 174 H (60-115) mg/dL Ur Specific [place] >= 1.030 H (1.005-1.025) Urine Protein 3+ H (NEG-TRACE) MG/DL Urine Blood 3+ H (NEG) Urine Nitrite POS H (NEG) Ur Leukocyte Esterase TRACE H (NEG) Urine RBC TNTC H (0) /HPF Urine WBC 10-14 H (0-4) /HPF 04/05/21 04/05/21 Range/Units 06:12 06:12 WBC 15.3 H (4.8-10.8) X10*3/uL Hgb 13.9 L (14.0-18.0) g/dl Plt Count (160-400) X10*3/uL Immature Gran % (Auto) (0.0-0.4) % Neut % (Auto) (45-73) % Lymph % (Auto) (20-40) % Abs Immat Gran (auto) 0.05 H (0.00-0.03) X10*3/uL Absolute Neuts (auto) 10.0 H (2.0-8.3) X10*3/uL Carbon Dioxide (22-29) mmol/L Creatinine 1.48 H (0.5-1.4) mg/dL Random Glucose 167 H (60-115) mg/dL Ur Specific [place] (1.005-1.025) Urine Protein (NEG-TRACE) MG/DL Urine Blood (NEG) Urine Nitrite (NEG) Ur Leukocyte Esterase (NEG) Urine RBC (0) /HPF Urine WBC (0-4) /HPF Short CBC 04/04/21 04/05/21 Range/Units 17:20 06:12 WBC 19.1 H 15.3 H (4.8-10.8) X10*3/uL Hgb 16.1 13.9 L (14.0-18.0) g/dl Hct 47.8 42.2 (42-52) % Plt Count 449 H 382 (160-400) X10*3/uL BMP 04/04/21 04/05/21 17:20 06:12 Sodium 142 140 Potassium 4.7 4.0 Chloride 108 108 Carbon Dioxide 19 L 22 BUN 14 15 Creatinine 1.30 1.48 H Calcium 9.8 8.9 D Urine 04/04/21 Range/Units 20:47 Urine Color ACE Urine Appearance TURBID Urine pH 6.5 (5.0-8.0) Ur Specific [place] >= 1.030 H (1.005-1.025) Urine Protein 3+ H (NEG-TRACE) MG/DL Urine Glucose (UA) NEG (NEG) MG/DL All other labs normal. Assessment and Plan (1) Acute UTI: Status: Acute (2) Calculus of kidney: Status: Acute Ureteroscopy We discussed the nature of the decision and reasonable alternatives for performing the above surgery. Interventions include chemical dissolution, ESWL, ureteroscopy with laser lithotripsy and stent placement, PCNL. Options such as medical therapy were discussed. The relative uncertainties and benefits related to each alternate procedure were adequately discussed. General surgical risks including, but not limited to, pain, bleeding, infection, myocardial infarction, pulmonary embolus, deep vein thrombosis and cerebrovascular accident which may result in further hospitalization were discussed. Full disclosure of the procedure as well as all major risks, benefits and complications were discussed including but not limited to damage to the urethra, bladder and kidney infection, damage to the ureter, stent migration or malposition, scarring to the renal pelvis, remnant stone fragments, subsequent stone passage with need for secondary procedures. The overall secondary procedure rate is approximately 10-15%. The success rate of the procedure was discussed. Success of the procedure in the short-term does not necessarily guarantee that long-term success will be maintained. Suitable follow up will need to be maintained. The patient showed understanding of discussion and wishes to proceed with - cystoscopy, retrograde, ureteroscopy, possible lithotripsy/stone basketing and stent on the left side Procedures Date of Service Date of Service: 04/05/21
[2021-04-05] MEDS: levoFLOXacin 500 MG TABLET PO (09:03)
[2021-04-05] MEDS: Gabapentin 100 MG CAPSULE PO ×2 (09:03→16:31)
--- NOTE | 2021-04-05 09:38 | P.PNIM_ITS ---
Subjective Subjective Date of Service: 04/06/21 Interval History: f/u on kdieny stone, UTI, sepsis, and hydro--better after surger Review of Systems Gen: no fever Resp: no sob, no cough CV: no chest, no GARCIA, no leg edema GI: No n/v, no abd pain Neuro: No confusion Physical Exam Vital Signs: Vital Signs: Last Vital Signs Temp 96.7 F L 04/05/21 08:00 Pulse 62 04/05/21 08:00 Resp 18 04/05/21 08:00 BP 116/68 04/05/21 08:00 Pulse Ox 98 04/05/21 08:00 Body Mass Index 40.3 Const: Other: General: AO X 3, no acute distress Resp: CTA bilateral CVS: S1,S2,RRR GI: +BS, NT, no distention, no flank pain Skin: No rash Neuro: motor grossly intact Psych: appropriate affect Objective Data Current Medications Generic Name Dose Route Start Last Admin Trade Name Freq PRN Reason Stop Dose Admin Acetaminophen 650 mg 04/04/21 23:41 04/05/21 00:12 Acetaminophen 325 Mg Tablet PO 650 mg Q6H PRN Administration Pain, Mild (Pain Scale 1-3) Gabapentin 300 mg 04/05/21 21:00 Gabapentin 300 Mg Capsule PO BEDTIME DEONTE Gabapentin 100 mg 04/05/21 09:00 04/05/21 09:03 Gabapentin 100 Mg Capsule PO 100 mg BID@0900,1500 DEONTE Administration Hydromorphone HCl 0.5 mg 04/04/21 23:41 04/05/21 05:36 Hydromorphone Hcl 0.5 Mg/0.5 Ml Syringe IVPUSH 0.5 mg Q4H PRN Administration Pain, Severe (Pain Scale 7-10) Dextrose/Sodium Chloride 1,000 mls @ 75 mls/hr 04/04/21 23:45 04/05/21 00:46 D5ns IVCONT 75 mls/hr .[id number] DEONTE Administration Ceftriaxone Sodium 1 gm/ 50 mls @ 100 mls/hr 04/05/21 21:00 Sodium Chloride IV Q24H DEONTE Melatonin 6 mg 04/04/21 23:41 04/05/21 00:11 Melatonin 3 Mg Tablet PO 6 mg BEDTIME PRN Administration Insomnia Omeprazole 40 mg 04/05/21 06:30 04/05/21 05:36 Omeprazole 40 Mg Capsule. PO 40 mg DAILY@0630 [facility] Administration Senna 17.2 mg 04/04/21 23:41 Sennosides 8.6 Mg Tablet PO BEDTIME PRN Constipation Sodium Chloride 3 ml 04/05/21 00:00 04/05/21 09:05 0.9 % Sodium Chloride Flush 3 Ml Syringe IVFLUSH 3 ml QSHIFT [facility] Administration Labs CBC & Chem 7: 04/06/21 08:07 04/06/21 08:07 Labs: Laboratory Results - last 24 hr 04/04/21 04/04/21 04/04/21 17:20 17:20 20:47 MCV 87.4 MCH 29.4 MCHC 33.7 RDW 13.4 Plt Count 449 H MPV 10.0 Immature Gran % (Auto) 0.5 H Neut % (Auto) 74.4 H Lymph % (Auto) 19.2 L Coleman % (Auto) 4.3 Eos % (Auto) 1.0 Baso % (Auto) 0.6 Lymph # (Auto) 3.7 Coleman # (Auto) 0.8 Eos # (Auto) 0.2 Baso # (Auto) 0.1 Abs Immat Gran (auto) 0.09 H Absolute Neuts (auto) 14.2 H Absolute Nucleated RBC 0.000 Nucleated RBC % (auto) 0.0 Anion Gap 20 Creatinine 1.30 Estim Creat Clear Calc 83.9 Estimated GFR 59 Random Glucose 174 H Lactic Acid Calcium 9.8 Urine Color ACE Urine Appearance TURBID Urine pH 6.5 Ur Specific [place] >= 1.030 H Urine Protein 3+ H Urine Glucose (UA) NEG Urine Ketones 40 Urine Blood 3+ H Urine Nitrite POS H Ur Leukocyte Esterase TRACE H Urine RBC TNTC H Urine WBC 10-14 H Ur Squamous Epith Cells TRACE Amorphous Sediment 2+ Urine Bacteria TRACE Urine Mucus 2+ Coronavirus (PCR) Influenza Type A (PCR) Influenza Type B (PCR) RSV RNA Qual (PCR) 04/04/21 04/04/21 04/05/21 21:58 22:50 06:12 MCV 88.8 MCH 29.3 MCHC 32.9 RDW 13.7 Plt Count 382 MPV 10.2 Immature Gran % (Auto) 0.3 Neut % (Auto) 65.5 Lymph % (Auto) 25.3 Coleman % (Auto) 8.0 Eos % (Auto) 0.5 Baso % (Auto) 0.4 Lymph # (Auto) 3.9 Coleman # (Auto) 1.2 Eos # (Auto) 0.1 Baso # (Auto) 0.1 Abs Immat Gran (auto) 0.05 H Absolute Neuts (auto) 10.0 H Absolute Nucleated RBC 0.000 Nucleated RBC % (auto) 0.0 Anion Gap Creatinine Estim Creat Clear Calc Estimated GFR Random Glucose Lactic Acid 0.8 Calcium Urine Color Urine Appearance Urine pH Ur Specific [place] Urine Protein Urine Glucose (UA) Urine Ketones Urine Blood Urine Nitrite Ur Leukocyte Esterase Urine RBC Urine WBC Ur Squamous Epith Cells Amorphous Sediment Urine Bacteria Urine Mucus Coronavirus (PCR) NEGATIVE Influenza Type A (PCR) NEGATIVE Influenza Type B (PCR) NEGATIVE RSV RNA Qual (PCR) NEGATIVE 04/05/21 06:12 MCV MCH MCHC RDW Plt Count MPV Immature Gran % (Auto) Neut % (Auto) Lymph % (Auto) Coleman % (Auto) Eos % (Auto) Baso % (Auto) Lymph # (Auto) Coleman # (Auto) Eos # (Auto) Baso # (Auto) Abs Immat Gran (auto) Absolute Neuts (auto) Absolute Nucleated RBC Nucleated RBC % (auto) Anion Gap 14 Creatinine 1.48 H Estim Creat Clear Calc 73.7 Estimated GFR 51 Random Glucose 167 H Lactic Acid Calcium 8.9 D Urine Color Urine Appearance Urine pH Ur Specific [place] Urine Protein Urine Glucose (UA) Urine Ketones Urine Blood Urine Nitrite Ur Leukocyte Esterase Urine RBC Urine WBC Ur Squamous Epith Cells Amorphous Sediment Urine Bacteria Urine Mucus Coronavirus (PCR) Influenza Type A (PCR) Influenza Type B (PCR) RSV RNA Qual (PCR) Assessment and Plan (1) Sepsis: Status: Acute (2) Acute UTI: Status: Acute (3) ALEXANDREA (acute kidney injury): Status: Acute Assessment and Plan: 46-year-old male with a past medical history of hypertension, hyperlipidemia, GERD, history of renal calculi, obesity presented to the hospital with a chief complaint of left flank pain; noted to have left distal ureteral calculus/mild hydronephrosis/UTI; admitted for further management. Left distal ureter renal calculus/hydronephrosis/UTI/ For cystoscopy today Pain control Continue ceftriaxone for UTI and Sepsis ALEXANDREA--hydration and recheck Hypertension:?hold Lisinopril, can continue Amlodipine All other chronic conditions, home medications will be continued DVT prophylaxis:? SCD boots Code status:? Full code late entry from 04/05 Quality Stroke Does the patient have a stroke diagnosis?: No VTE Prior VTE?: No VTE Risk Level:: Medical - moderate - high VTE Device Contraindication: N/A - Device Ordered VTE Drug Contraindication: Treatment Not Indicated
[2021-04-05] MEDS: Lactated Ringers 1,000 ML 100 ML IVCONT (12:30)
--- NOTE | 2021-04-05 12:38 | PC.NURSE ---
RUL INSP WHEEZING, LLL EXP WHEEZE, RLL EXP/INSP WHEEZE
--- NOTE | 2021-04-05 12:40 | PC.NURSE ---
NEED RESP TREATMENT. MD MONTELONGO TO ORDER TREATMENT.
--- NOTE | 2021-04-05 12:40 | HO.ANESPROP2 ---
HPI - Anesthesia Eval Consult details Narrative: 46 yo male patient for cystoscopy, retrogrades, ureteroscopy, laser, stent left ureter PMFSH Active Problems Active Problems: All Active Problems (Updated 04/04/21 @ 22:26 by Andrzej Paiz MD) Calculus of kidney (Acute) Acute UTI (Acute) Chronic pain syndrome (Acute) Right sided sciatica (Acute) Depression (Acute) GERD (gastroesophageal reflux disease) (Acute) Morbid obesity (Acute) Impaired glucose tolerance (Acute) Dyslipidemia (Acute) Essential hypertension (Acute) Disc degeneration, lumbar (Acute) Other spondylosis with radiculopathy, lumbar region (Acute) Patient denies RADHA but Saturation drifts down to 90% when asleep Past Medical History Medical History Chronic pain syndrome Depression Disc degeneration, lumbar Dyslipidemia Essential hypertension GERD (gastroesophageal reflux disease) Impaired glucose tolerance Morbid obesity Other spondylosis with radiculopathy, lumbar region Renal calculi Right sided sciatica Family History Family History Father Hypertension Sciatica Mother Stroke Hypertension Diabetes Brother Stroke Pancreatic cancer Family history of problems with anesthesia: No Surgical History Surgical History History of appendectomy History of extraction of renal calculus History of toe surgery History of vasectomy History of Problems with Anesthesia: Yes (?? h/o breathing slowed down ?? during appendectomy) Social History Social History (Updated 04/05/21 @ 12:53 by Talia Perez MD) Household Members: Family Housing: House Do you presently have visiting nurse or other home services: No Alcohol intake: former Patient Tobacco Use Status: Current everyday Tobacco user Tobacco use type: Cigarette Cigarette Packs Per Day: 1 Cigarettes Per Day: 20.0 Years Smoked: 20 Smoked in Last 30 Days: Yes Second Hand Smoke Exposure: Yes Substance Use Type: Marijuana Last Used Substance: Days (ago) Meds Allergies Allergy/AdvReac Type Severity Reaction Status Date / Time No Known Allergies Allergy Verified 02/12/21 15:35 [No Known Allergies*] Active Medications: Current Medications Generic Name Dose Route Start Last Admin Trade Name Freq PRN Reason Stop Dose Admin Acetaminophen 650 mg 04/04/21 23:41 04/05/21 00:12 Acetaminophen 325 Mg Tablet PO 650 mg Q6H PRN Administration Pain, Mild (Pain Scale 1-3) Gabapentin 300 mg 04/05/21 21:00 Gabapentin 300 Mg Capsule PO BEDTIME DEONTE Gabapentin 100 mg 04/05/21 09:00 04/05/21 09:03 Gabapentin 100 Mg Capsule PO 100 mg BID@0900,1500 DEONTE Administration Hydromorphone HCl 0.5 mg 04/04/21 23:41 04/05/21 09:53 Hydromorphone Hcl 0.5 Mg/0.5 Ml Syringe IVPUSH 0.5 mg Q4H PRN Administration Pain, Severe (Pain Scale 7-10) Dextrose/Sodium Chloride 1,000 mls @ 75 mls/hr 04/04/21 23:45 04/05/21 12:31 D5ns IVCONT 0 mls/hr .[id number] [facility] Infusion Ceftriaxone Sodium 1 gm/ 50 mls @ 100 mls/hr 04/05/21 21:00 Sodium Chloride IV Q24H DEONTE Melatonin 6 mg 04/04/21 23:41 04/05/21 00:11 Melatonin 3 Mg Tablet PO 6 mg BEDTIME PRN Administration Insomnia Omeprazole 40 mg 04/05/21 06:30 04/05/21 05:36 Omeprazole 40 Mg Capsule.Dr PO 40 mg DAILY@0630 [facility] Administration Senna 17.2 mg 04/04/21 23:41 Sennosides 8.6 Mg Tablet PO BEDTIME PRN Constipation Sodium Chloride 3 ml 04/05/21 00:00 04/05/21 09:05 0.9 % Sodium Chloride Flush 3 Ml Syringe IVFLUSH 3 ml QSHIFT [facility] Administration Home Medications Medication Instructions Recorded Confirmed Last Taken Type hydroxyzine pamoate 25 mg capsule 25 mg PO TID 04/04/21 04/05/21 04/04/21 07:00 History acetaminophen 500 mg tablet 1 tab PO Q6H PRN 04/05/21 04/05/21 Unknown History sertraline 50 mg tablet 50 mg PO DAILY 04/05/21 04/05/21 04/04/21 History Exam Exam Date and Time: April 05, 2021 1240 Height,Weight and Vital Signs: Height 5 ft 6 in Weight 113.398 kg Last Vital Signs Temp 98.3 F 04/05/21 12:27 Pulse 78 04/05/21 12:27 Resp 16 04/05/21 12:27 BP 130/70 04/05/21 12:27 Pulse Ox 99 04/05/21 12:27 Pertinent Lab Results Pertinent Lab Results: Laboratory Tests 04/04/21 04/04/21 04/04/21 17:20 17:20 20:47 WBC 19.1 H RBC 5.47 Hgb 16.1 Hct 47.8 MCV 87.4 MCH 29.4 MCHC 33.7 RDW 13.4 Plt Count 449 H MPV 10.0 Immature Gran % (Auto) 0.5 H Neut % (Auto) 74.4 H Lymph % (Auto) 19.2 L [place] % (Auto) 4.3 Eos % (Auto) 1.0 Baso % (Auto) 0.6 Lymph # (Auto) 3.7 Douglas # (Auto) 0.8 Eos # (Auto) 0.2 Baso # (Auto) 0.1 Abs Immat Gran (auto) 0.09 H Absolute Neuts (auto) 14.2 H Absolute Nucleated RBC 0.000 Nucleated RBC % (auto) 0.0 Sodium 142 Potassium 4.7 Chloride 108 Carbon Dioxide 19 L Anion Gap 20 BUN 14 Creatinine 1.30 Estim Creat Clear Calc 83.9 Estimated GFR 59 Random Glucose 174 H Lactic Acid Calcium 9.8 Urine Color ACE Urine Appearance TURBID Urine pH 6.5 Ur Specific [place] >= 1.030 H Urine Protein 3+ H Urine Glucose (UA) NEG Urine Ketones 40 Urine Blood 3+ H Urine Nitrite POS H Ur Leukocyte Esterase TRACE H Urine RBC TNTC H Urine WBC 10-14 H Ur Squamous Epith Cells TRACE Amorphous Sediment 2+ Urine Bacteria TRACE Urine Mucus 2+ Coronavirus (PCR) Influenza Type A (PCR) Influenza Type B (PCR) RSV RNA Qual (PCR) 04/04/21 04/04/21 04/05/21 21:58 22:50 06:12 WBC 15.3 H RBC 4.75 Hgb 13.9 L Hct 42.2 MCV 88.8 MCH 29.3 MCHC 32.9 RDW 13.7 Plt Count 382 MPV 10.2 Immature Gran % (Auto) 0.3 Neut % (Auto) 65.5 Lymph % (Auto) 25.3 [place] % (Auto) 8.0 Eos % (Auto) 0.5 Baso % (Auto) 0.4 Lymph # (Auto) 3.9 [place] # (Auto) 1.2 Eos # (Auto) 0.1 Baso # (Auto) 0.1 Abs Immat Gran (auto) 0.05 H Absolute Neuts (auto) 10.0 H Absolute Nucleated RBC 0.000 Nucleated RBC % (auto) 0.0 Sodium Potassium Chloride Carbon Dioxide Anion Gap BUN Creatinine Estim Creat Clear Calc Estimated GFR Random Glucose Lactic Acid 0.8 Calcium Urine Color Urine Appearance Urine pH Ur Specific [place] Urine Protein Urine Glucose (UA) Urine Ketones Urine Blood Urine Nitrite Ur Leukocyte Esterase Urine RBC Urine WBC Ur Squamous Epith Cells Amorphous Sediment Urine Bacteria Urine Mucus Coronavirus (PCR) NEGATIVE Influenza Type A (PCR) NEGATIVE Influenza Type B (PCR) NEGATIVE RSV RNA Qual (PCR) NEGATIVE 04/05/21 06:12 WBC RBC Hgb Hct MCV MCH MCHC RDW Plt Count MPV Immature Gran % (Auto) Neut % (Auto) Lymph % (Auto) [place] % (Auto) Eos % (Auto) Baso % (Auto) Lymph # (Auto) [place] # (Auto) Eos # (Auto) Baso # (Auto) Abs Immat Gran (auto) Absolute Neuts (auto) Absolute Nucleated RBC Nucleated RBC % (auto) Sodium 140 Potassium 4.0 Chloride 108 Carbon Dioxide 22 Anion Gap 14 BUN 15 Creatinine 1.48 H Estim Creat Clear Calc 73.7 Estimated GFR 51 Random Glucose 167 H Lactic Acid Calcium 8.9 D Urine Color Urine Appearance Urine pH Ur Specific [place] Urine Protein Urine Glucose (UA) Urine Ketones Urine Blood Urine Nitrite Ur Leukocyte Esterase Urine RBC Urine WBC Ur Squamous Epith Cells Amorphous Sediment Urine Bacteria Urine Mucus Coronavirus (PCR) Influenza Type A (PCR) Influenza Type B (PCR) RSV RNA Qual (PCR) Airway Mallampati Class: III TM Dist: >3cm Neck ROM: Limited Loose/Missing/Broken Teeth: Yes (Top front loose) Heart: RRR Lungs: Bilateral wheezes. Clear post respiratory treatment Assessment and Plan Assessment Anesthesia Assessment: Anesthesia Plan Discussed and Chart Reviewed Final Anesthetic Review Family History of Problems with Anesthesia: No History of Problems with Anesthesia: Yes (?? h/o breathing slowed down ?? during appendectomy) NPO: Yes ASA Class: III Final Preanesthetic Review: No Changes in Pt Med Stat, Meds/Allgs Chart Reviewed, Consent Obtained/Reviewed and Anes Risks/Benef Reviewed Patient Risk: Intermediate Procedure Risk: Low Assessment/Block/Sedation in SS: Assess/Block/Sedation-SS Anesthetic Plan Anesthetic Plan: GA Disposition: Standard PACU and Inp. Admit - Standard Bed
--- NOTE | 2021-04-05 12:53 | PC.NURSE ---
CALLED FOR RESP TREATMENT
[2021-04-05] MEDS: Albuterol Sulfate (0.083%) 2.5 MG/3 ML VIAL.NEB INHALE (13:00)
--- NOTE | 2021-04-05 14:00 | MHC.SHP ---
Pre-Procedural Eval Section A Date of Service: 04/05/21 Section B Chief Complaint: UTI with distal left ureteric stone Details of Present Illness: Admission through emergency room Relevant Social History: None Present Medications: see Short Stay Collaborative assessment Medical History: No relevant PMH History of Previous Operations: No relevant previous surgery Allergies: Allergies Allergy/AdvReac Type Severity Reaction Status Date / Time No Known Allergies Allergy Verified 02/12/21 15:35 [No Known Allergies*] Review of Systems Sugical H&P ROS: Negative: Constitution, Cardiovascular, Respiratory, Neurological, Psychiatric, Hem-Onc, Allergic/Immunologic, Gastrointestinal, Genitourinary, Musculoskeletal, Integumentary, Endocrine and Eyes/Ears/Nose/Throat Exam Surgical H&P Exam: Normal: HEENT, Normal: Heart, Normal: Lungs, Normal: Extremities, Normal: Abdomen, Normal: Skin and Normal: Neurological Plan Diagnosis/Plan: Unchanged (Left ureteroscopy with laser lithotripsy and stent placement) I have reviewed the history and physical and performed a pertinent physical examination on my patient. No changes have occurred unless specified.
--- NOTE | 2021-04-05 14:33 | MHC.CM.PN ---
PATIENT OFF UNIT DURING CASE MANAGEMENT ASSESSMENT ATTEMPT. PLAN WAS FOR CYSTOSCOPY TODAY. CASE MANAGEMENT CARD LEFT BEDSIDE AND NAME WRITTEN ON WHITE BOARD.
--- NOTE | 2021-04-05 14:48 | P.OP_ITS ---
Operative Note Operative Note Date of Service: 04/05/21 Narrative: PreOperative Diagnosis: Left distal ureteric stone Post Operative Diagnosis: Left distal ureteric stone with the ureteric edema Procedure: - cystoscopy, left retrograde - left dilatation of ureteric orifice under fluoroscopy - ureteroscopy - left stent placement Surgeon: Dr Giorgio Valdez Anesthesia: General Indications for procedure: This is a 46-year-old male admitted through the emergency room room. 5 mm distal left ureteric stone with associated mild to moderate hydro ureteronephrosis. Creatinine 1.48, white blood cell count 15.3 with nitrite positive urine. Recommend intervention given setting of infected stone. Procedure: After informed consent was verified patient was brought to the operating placed in supine position. Anesthesia was administered per protocol. Patient was placed in modified dorsal lithotomy position and prepped and draped in a sterile fashion. Safety pause time-out and side of surgery confirmed. Antibiotics confirmed. Twenty-two Monegas[place] cystoscope inserted per urethra. No abnormality noted the anterior posterior urethra. High riding prostate. Both ureteric orifices normal position. In the left ureteric orifice was cannulated and retrograde examination performed. Question of filling defect in distal portion of the ureter. Sensor guidewire was placed. Stone debris came down around the Sensor guidewire as this was placed. Cystoscope removed. Wan dilator used to dilate ureteric orifice under fluoroscopy. [place] dilator removed. Semi rigid ureteral scope placed. Ureteral scope navigated into distal portion of ureter. Ureter was tight so a Glidewire was placed. We were able to go up to the mid ureter. No stone encountered. It seems the stone had broken with placement of the wire and this had relieved the obstruction. On removal of the rigid ureteral scope we could see edema at the distal portion of the ureter. Decision was made for placement of stent. A 6 [place] by 22 cm double-J stent was placed after being backloaded into the cystoscope. Good coil was seen at t he renal pelvis and in the bladder. Patient tolerated the procedure well. He was extubated in operating room transferred in stable condition to the recovery area. Will remain overnight secondary to current infection and requirement for antibiotics. Pathology: Stone Drains: 6 [place] by 22 cm stent
[2021-04-05] MEDS: oxyCODONE HCl Immed Release 5 MG TABLET 10 MG PO (15:29)
[2021-04-05] MEDS: Acetaminophen 325 MG TABLET 975 MG PO (15:30)
[2021-04-05] MEDS: Phenazopyridine HCL 100 MG TABLET PO (15:30)
[2021-04-05] MEDS: cefTRIAXone sodium 1 GM in 0.9 % Sodium Chloride 50 ML IV (20:30)
[2021-04-05] MEDS: traMADoL HCL 50 MG TABLET PO (20:32)
[2021-04-05] MEDS: Gabapentin 300 MG CAPSULE PO (20:33)
[2021-04-06] MEDS: Omeprazole 40 MG CAPSULE.DR PO (06:22)
[2021-04-06] MEDS: Dextrose 5 % and 0.9 % NaCl 1,000 ML 75 ML IVCONT (06:22)
[2021-04-06] MEDS: traMADoL HCL 50 MG TABLET PO (06:34)
[2021-04-06 07:57] VITALS: PULSE 97; RESP 18; TEMP 36.6; O2SAT 97
[2021-04-06 08:10] VITALS: BP 140/80
[2021-04-06] MEDS: Gabapentin 100 MG CAPSULE PO (08:24)
[2021-04-06 08:29] LABS: Hematocrit 40.2 % (42-52); Hemoglobin 13.1 g/dl (14.0-18.0); Mean Corpuscular HGB Conc 32.6 g/dl (31.0-36.0); Mean Corpuscular Hemoglobin 29.4 pg (27.0-33.0); Mean Corpuscular Volume 90.3 fL (80-98); Mean Platelet Volume 10.2 fL (9.4-12.4); Platelet Count 346 X10*3/uL (160-400); Red Blood Count 4.45 X10*6/uL (4.60-5.80); White Blood Count 12.9 X10*3/uL (4.8-10.8)
--- NOTE | 2021-04-06 08:53 | PM.UROPN ---
Subjective Subjective Date of Service: 04/06/21 Interval history: Doing well this morning Left flank pain greatly reduced Urine clear Antibiotics given and white cell declining Complete 7 days of antibiotics Will be seen in office next week for stent removal Physical Exam Vital Signs: Vital Signs: Last Vital Signs Temp 97.9 F 04/06/21 07:57 Pulse 97 04/06/21 07:57 Resp 18 04/06/21 07:57 BP 140/80 H 04/06/21 08:10 Pulse Ox 97 04/06/21 07:57 Body Mass Index 40.3 Const: General: cooperative, healthy appearing, comfortable and no acute distress Orientation/consciousness: patient oriented x3 HENMT: Face and sinus: Yes normal facial exam Mouth: moist mucous membranes Neck: Neck: Yes normal visual inspection, Yes full ROM and Yes trachea midline Chest: Chest palpation & inspection: normal inspection of the chest Resp: Effort & Inspection: normal respiratory effort, able to speak in complete sentences and no respiratory distress GI: Inspection: Yes normal to inspection Back/Spine/Pelvis: Cervical Spine: normal cervical lordosis Thoracic/Lumbar Spine: thoracic and lumbar spine normal to inspection Skin: General skin exam: no rashes or lesions noted Neuro: General: patient oriented x3, gait normal, tone normal and moves all extremities Extrem: General: Yes normal to inspection and Yes capillary refill normal Urology Results Labs CBC & Chem 7: 04/06/21 08:07 04/05/21 06:12 Labs: Laboratory Results - last 24 hr 04/06/21 08:07 WBC 12.9 H RBC 4.45 L Hgb 13.1 L Hct 40.2 L MCV 90.3 MCH 29.4 MCHC 32.6 RDW 14.0 Plt Count 346 MPV 10.2 Absolute Nucleated RBC 0.000 Nucleated RBC % (auto) 0.0 Progress Note: A&P Assessment and plan (1) Calculus of kidney: Status: Acute (2) Acute UTI: Status: Acute Assessment and Plan: Stent removal next week in office Fall Risk Details Current Medications: Current Medications Generic Name Dose Route Start Last Admin Trade Name Freq PRN Reason Stop Dose Admin Acetaminophen 650 mg 04/04/21 23:41 04/05/21 00:12 Acetaminophen 325 Mg Tablet PO 650 mg Q6H PRN Administration Pain, Mild (Pain Scale 1-3) Fentanyl 25 mcg 04/05/21 12:57 Fentanyl Citrate/Pf 100 Mcg/2 Ml Vial IVPUSH Q5M PRN Pain, Moderate (Pain Scale 4-6 Gabapentin 300 mg 04/05/21 21:00 04/05/21 20:33 Gabapentin 300 Mg Capsule PO 300 mg BEDTIME DEONTE Administration Gabapentin 100 mg 04/05/21 09:00 04/06/21 08:24 Gabapentin 100 Mg Capsule PO 100 mg BID@0900,1500 DEONTE Administration Hydromorphone HCl 0.5 mg 04/04/21 23:41 04/05/21 09:53 Hydromorphone Hcl 0.5 Mg/0.5 Ml Syringe IVPUSH 0.5 mg Q4H PRN Administration Pain, Severe (Pain Scale 7-10) Hydromorphone HCl 0.25 mg 04/05/21 13:01 Hydromorphone Hcl 0.5 Mg/0.5 Ml Syringe IVPUSH Q5M PRN Pain, Severe (Pain Scale 7-10) Dextrose/Sodium Chloride 1,000 mls @ 75 mls/hr 04/04/21 23:45 04/06/21 06:22 D5ns IVCONT 75 mls/hr .[id number] DEONTE Administration Ceftriaxone Sodium 1 gm/ 50 mls @ 100 mls/hr 04/05/21 21:00 04/05/21 21:05 Sodium Chloride IV Infused Q24H DEONTE Infusion Lactated Ringer's 1,000 mls @ 100 mls/hr 04/05/21 13:00 04/06/21 08:21 Lr IVCONT Not Given .Q10H DEONTE Ketorolac Tromethamine 15 mg 04/05/21 13:01 Ketorolac Tromethamine 15 Mg/Ml Vial IVPUSH ONCE PRN Pain, Moderate (Pain Scale 4-6 Ketorolac Tromethamine 15 mg 04/05/21 14:46 Ketorolac Tromethamine 15 Mg/Ml Vial IV Q6H PRN Pain, Moderate (Pain Scale 4-6 Melatonin 6 mg 04/04/21 23:41 04/05/21 20:32 Melatonin 3 Mg Tablet PO 6 mg BEDTIME PRN Administration Insomnia Omeprazole 40 mg 04/05/21 06:30 04/06/21 06:22 Omeprazole 40 Mg Capsule.Dr PO 40 mg DAILY@0630 DEONTE Administration Ondansetron HCl 4 mg 04/05/21 12:57 Ondansetron Hcl 4 Mg/2 Ml Vial IVPUSH ONCE PRN Nausea and Vomiting Senna 17.2 mg 04/04/21 23:41 Sennosides 8.6 Mg Tablet PO BEDTIME PRN Constipation Sodium Chloride 3 ml 04/05/21 00:00 04/06/21 08:23 0.9 % Sodium Chloride Flush 3 Ml Syringe IVFLUSH Not Given QSHIFT [facility] Tramadol HCl 50 mg 04/05/21 14:46 04/06/21 06:34 Tramadol Hcl 50 Mg Tablet PO 50 mg Q6H PRN Administration Pain, Moderate (Pain Scale 4-6 Time Spent With Patient Time: Total time spent is greater than 50% in coordination of care (as documented) at patient's floor/unit and/or counseling patient: Time with patient: less than 15 minutes
[2021-04-06 09:07] LABS: Anion Gap 11 (12-20); Blood Urea Nitrogen 9 mg/dL (9-16); Calcium 9.1 mg/dL (8.4-10.2); Carbon Dioxide 28 mmol/L (22-29); Chloride 107 mmol/L (96-108); Creatinine Clr Calc Pharmacy 108.1; Estimated Glomerular Filt Rate > 60; Glucose Random 135 mg/dL (60-115); Potassium 4.3 mmol/L (3.3-5.1); Sodium 142 mmol/L (135-145)
--- NOTE | 2021-04-06 09:55 | PM.DS ---
DS: Providers Provider Date of Service: 04/06/21 Date of admission: 04/04/21 23:41 Primary care physician: Lucia Severino MD Consults: 04/04/21 23:41 Consult to Urology Routine Consulting Provider: Giorgio Valdez Reason for consultation: renal stone/uti DS: Diagnosis Discharge Diagnosis (1) Calculus of kidney: Status: Acute (2) Acute UTI: Status: Acute DS: Medications Discharge Medications Home Medications: Home Medications Medication Instructions Recorded Confirmed hydroxyzine pamoate 25 mg capsule 25 mg PO TID 04/04/21 04/05/21 acetaminophen 500 mg tablet 1 tab PO Q6H PRN 04/05/21 04/05/21 sertraline 50 mg tablet 50 mg PO DAILY 04/05/21 04/05/21 Previous Rx's Medication Instructions Recorded omeprazole 40 mg capsule,delayed 40 mg PO QAM #90 cap 09/02/20 release lisinopril 40 mg tablet 40 mg PO DAILY 90 Days #90 tab 09/22/20 amlodipine 10 mg tablet 10 mg PO DAILY 90 Days #90 tab 12/28/20 gabapentin 300 mg capsule 300 mg PO BEDTIME 90 Days #90 cap 12/28/20 gabapentin 100 mg capsule 100 mg PO BID 90 Days #180 cap 03/31/21 DS: Summary Hospital Course Hospital Course: 46-year-old male with a past medical history of hypertension, hyperlipidemia, GERD, history of renal calculi, obesity presented to the hospital with a chief complaint of left flank pain; noted to have left distal ureteral calculus/mild hydronephrosis/UTI; admitted for further management. Left distal ureter renal calculus/hydronephrosis/sepsis, UTI:Treated wuth IV Ceftriaxone and underwent cystoscopy with Dr. Valdez on 04/05 -? cystoscopy, left retrograde, left dilatation of ureteric orifice under fluoroscopy, ? ureteroscopy and left? left stent placement. Cultures so far negative. renal failure has resolved Cr 1.[address] Valdez recommends a 1 week of antibiotics (Ceftin) and follow up in a week for stent removal. Final diagnosis: Sepsis UTI ALEXANDREA Hydronephrosis Time Spent with Patient Time attestation: Total time spent providing and/or coordinating discharge services: Discharge coordination time: Greater than 30 minutes Quality: Stroke Does the patient have a stroke diagnosis?: No Physical Exam Vital Signs: Vital Signs: Last Vital Signs Temp 97.9 F 04/06/21 07:57 Pulse 97 04/06/21 07:57 Resp 18 04/06/21 07:57 BP 140/80 H 04/06/21 08:10 Pulse Ox 97 04/06/21 07:57 Body Mass Index 40.3 General: AO X 3, no acute distress Resp: CTA bilateral CVS: S1,S2,RRR GI: +BS, NT, no distention, no flank tenderness Skin: No rash Neuro: motor grossly intact Psych: appropriate affect DS: Data Data Completed and Pending Labs on day of discharge: Laboratory Results - last 24 hr 04/06/21 04/06/21 08:07 08:07 WBC 12.9 H RBC 4.45 L Hgb 13.1 L Hct 40.2 L MCV 90.3 MCH 29.4 MCHC 32.6 RDW 14.0 Plt Count 346 MPV 10.2 Absolute Nucleated RBC 0.000 Nucleated RBC % (auto) 0.0 Sodium 142 Potassium 4.3 Chloride 107 Carbon Dioxide 28 Anion Gap 11 L BUN 9 Creatinine 1.01 Estim Creat Clear Calc 108.1 Estimated GFR > 60 Random Glucose 135 H Calcium 9.1 Preliminary micro results at discharge 04/04/21 22:07 Blood Culture - Preliminary Blood - Venous No growth after 24 hours. 04/04/21 21:58 Blood Culture - Preliminary Blood - Venous No growth after 24 hours. Discharge Plan Discharge Anticipated Discharge Date/Time: 04/06/21 09:53 Patient Disposition: Home, Self-Care Discharge Diagnosis: Sepsis, UTI, ALEXANDREA, hydronephrosis Referrals: Lucia Rose MD [Primary Care Provider] - 1 Week Discharge Medications: New cefuroxime axetil 500 mg tablet 500 mg PO BID 7 Days Qty: 14 RF: 0 Continued omeprazole 40 mg capsule,delayed release(DR/EC) 40 mg PO QAM Qty: 90 RF: 1 gabapentin 100 mg capsule 100 mg PO BID 90 Days Qty: 180 RF: 0 hydroxyzine pamoate 25 mg capsule 25 mg PO TID RF: 0 acetaminophen 500 mg tablet 1 tab PO Q6H PRN (Reason: fever) RF: 0 sertraline 50 mg tablet 50 mg PO DAILY RF: 0 lisinopril 40 mg tablet 40 mg PO DAILY 90 Days Qty: 90 RF: 3 amlodipine 10 mg tablet 10 mg PO DAILY 90 Days Qty: 90 RF: 1 gabapentin 300 mg capsule 300 mg PO BEDTIME 90 Days Qty: 90 RF: 1 Discharge Orders: Discharge Order (Routine); Ordered 04/06/21 Ordered By: Neel Szymanski Activity on Discharge: As tolerated Stand Alone Forms: Patient Portal Discharge page Care Plan Goals: Full recovery from UTI, sepsis Health Concerns: UTI, sepsis, hydronephrosis, renal failure Plan of Treatment: Take Ceftin as recommended and follow up with your Dr. Valdez in a week Assessment: As above
--- NOTE | 2021-04-06 10:26 | MHC.CM.PN ---
PATIENT IS DISCHARGED HOME - SELF CARE. RN AWARE OF PLAN
--- NOTE | 2021-04-06 11:12 | HO.POSTANES ---
Post Anesthesia Evaluation Post Anesthesia Evaluation Vital Signs: Vital Signs Temp Pulse Resp BP Pulse Ox 04/06/21 08:10 140/80 H 04/06/21 07:57 97.9 F 97 18 97 04/05/21 23:37 97.3 F 72 16 122/69 93 Anesthesia: General Mental Status: Awake Pain Control: Satisfactory Nausea/Vomiting: None Hydration: Adequate Anesthesia-Related Issues: No Anes. Related Issues
== END 2021-04-06 11:41 | disposition home or self-care (01) | DRG 720 ==
LOC: HO.ED 22:26 → HO.EDOVER 23:54 → HO.S3 04-05 05:53
PROVIDERS: Urology; Admitting Provider Hospitalist; Emergency Provider Internal Medicine; PCP Internal Medicine; Visit Provider Internal Medicine
DX: A41.9 Sepsis, unspecified organism (principal); N17.9 Acute kidney failure, unspecified; Z68.41 Body mass index [BMI] 40.0-44.9, adult; N13.6 Pyonephrosis; E66.9 Obesity, unspecified; E78.5 Hyperlipidemia, unspecified; I10 Essential (primary) hypertension; K21.9 Gastro-esophageal reflux disease without esophagitis; Z20.822 Contact with and (suspected) exposure to COVID-19; F17.210 Nicotine dependence, cigarettes, uncomplicated; Z71.6 Tobacco abuse counseling; Z79.899 Other long term (current) drug therapy; Z87.442 Personal history of urinary calculi; G89.4 Chronic pain syndrome
CPT/HCPCS: 0241U; 36415; 74176; 80048; 81001; 81003; 83605; 85025; 85027; 87040; 87086; 94640; 96361; 96365; 96375; 99284; 99285; C1758; C1769; C2617; J0330; J0696; J1100; J1170; J1885; J2250; J2270; J2370; J2405; J2765; J3010; Q9967

== ENCOUNTER 2021-04-13 08:30 | Outpatient (REF) | payer OTHER, SELFPAY ==
--- NOTE | ~2021-04-13 | XR_ITS ---
EXAMINATION: XR ABDOMEN KUB CLINICAL INDICATION: Calculus of kidney. COMPARISON: None. TECHNIQUE: Supine view of the abdomen. FINDINGS: the bowel gas pattern is normal with no evidence of ileus or obstruction. No unusual soft tissue calcifications are noted. The bones are unremarkable. XR/XR KUB IMPRESSION: Unremarkable KUB. No radiopaque urolith seen.
== END 2021-04-13 08:31 | disposition home or self-care (01) ==
LOC: HO.XRAY 08:30
PROVIDERS: Absent Provider Internal Medicine; PCP Internal Medicine; Visit Provider Urology
DX: Z48.816 Encounter for surgical aftercare following surgery on the genitourinary system (principal); Z87.442 Personal history of urinary calculi
CPT/HCPCS: 52310; 74018; 99212

== ENCOUNTER 2021-05-04 10:39 | Outpatient (REF) | payer OTHER, SELFPAY ==
--- NOTE | ~2021-05-04 | US_ITS ---
EXAMINATION: US RETROPERITONEAL LIMITED (RENAL ONLY) CLINICAL INFORMATION: Calculus of kidney. COMPARISON: X-ray abdomen KUB 04/13/2021. CT abdomen and pelvis 04/04/2021. TECHNIQUE: Real-time imaging of the kidneys. FINDINGS: RIGHT KIDNEY: 11.8 x 4.8 x 5.3 cm (SAG x AP x TRV). The kidney is normal in size, contour, and echogenicity. Renal cortical thickness is normal. No calculi or focal parenchymal lesions. No hydronephrosis. Tiny echogenic focus medial aspect with pedicle artifact. LEFT KIDNEY: 11.3 x 6.0 x 6.0 cm (SAG x AP x TRV). The kidney is normal in size, contour, and echogenicity. Renal cortical thickness is normal. No calculi or focal parenchymal lesions. No hydronephrosis. US/US renal BI IMPRESSION: Small echogenic focus in medial aspect right kidney with parenchymal artifact. Otherwise unremarkable renal ultrasound exam.
== END 2021-05-04 10:40 | disposition home or self-care (01) ==
LOC: HO.US 10:39
PROVIDERS: PCP Internal Medicine; Visit Provider Urology
DX: N20.0 Calculus of kidney (principal)
CPT/HCPCS: 76775

== ENCOUNTER → 2021-05-18 09:56 | Outpatient (BNVA) | payer OTHER, SELFPAY | PROVIDERS: PCP Internal Medicine; Visit Provider Urology ==

== ENCOUNTER 2021-09-16 12:28 | Outpatient (REF) | payer OTHER, SELFPAY ==
[2021-09-16 12:44] LABS: MANUAL DIFF FLAG NO
[2021-09-16 13:13] LABS: Basophils Absolute Auto 0.1 X10*3/uL (0.0-0.2); Basophils Percent Auto 0.8 % (0-2); Eosinophils Absolute Auto 0.3 X10*3/uL (0.0-0.4); Eosinophils Percent Auto 2.2 % (0-4); Hematocrit 47.2 % (42.0-52.0); Hemoglobin 15.1 g/dl (14.0-18.0); Imm Gran Abs Auto 0.04 X10*3/uL (0.00-0.03); Imm Gran Pct Auto 0.3 % (0.0-0.4); Lymphocytes Absolute Auto 3.8 X10*3/uL (1.2-4.9); Lymphocytes Percent Auto 31.1 % (20-40); Mean Corpuscular Hemoglobin 28.7 pg (27.0-33.0); Mean Corpuscular Volume 89.6 fL (80.0-98.0); Mean Platelet Volume 9.8 fL (9.4-12.4); Monocytes Absolute Auto 0.5 X10*3/uL (0.1-1.2); Neutrophils Absolute Auto 7.5 x10*3/uL (2.0-8.3); Neutrophils Percent Auto 61.6 % (45-73); Platelet Count 408 X10*3/uL (160-400); Red Blood Count 5.27 X10*6/uL (4.60-5.80); Red Cell Distribution Width 13.7 % (11.0-16.0); White Blood Count 12.2 X10*3/uL (4.8-10.8)
[2021-09-16 13:48] LABS: Alanine Aminotransferase 40 U/L (0-40); Albumin Level 4.3 g/dL (3.5-5.0); Alkaline Phosphatase 103 U/L (39-117); Anion Gap 13 (12-20); Aspartate Amino Transferase 22 U/L (5-37); Bilirubin Total 0.3 mg/dL (0.0-1.0); Blood Urea Nitrogen 12 mg/dL (9-16); Carbon Dioxide 29 mmol/L (22-29); Chloride 106 mmol/L (96-108); Cholesterol 256 mg/dL; Estimated Glomerular Filt Rate > 60; Glucose Fasting 104 mg/dL (60-99); HDL Cholesterol 32 mg/dL; LDL Cholesterol Calculated 150 mg/dl; Potassium 4.9 mmol/L (3.3-5.1); Sodium 143 mmol/L (135-145); Triglycerides 371 mg/dL
[2021-09-20 16:17] LABS: Vitamin D 25-OH, D2 <4 ng/mL; Vitamin D 25-OH, D3 6 ng/mL; Vitamin D 25-OH, Total 6 ng/mL (30-100)
== END 2021-09-16 12:29 | disposition home or self-care (01) ==
LOC: HO.LAB 12:28
PROVIDERS: PCP Internal Medicine; Visit Provider Internal Medicine
DX: D64.9 Anemia, unspecified (principal); K21.9 Gastro-esophageal reflux disease without esophagitis; K64.8 Other hemorrhoids; E78.5 Hyperlipidemia, unspecified; E55.9 Vitamin D deficiency, unspecified; R06.2 Wheezing; G47.30 Sleep apnea, unspecified; F17.210 Nicotine dependence, cigarettes, uncomplicated
CPT/HCPCS: 36415; 80053; 80061; 82306; 85025; 99202

== ENCOUNTER → 2021-10-26 09:56 | Outpatient (BNVA) | payer OTHER, SELFPAY | PROVIDERS: PCP Internal Medicine; Visit Provider Internal Medicine | DX: G47.33 Obstructive sleep apnea (adult) (pediatric) (principal); J44.9 Chronic obstructive pulmonary disease, unspecified; E66.01 Morbid (severe) obesity due to excess calories; F17.210 Nicotine dependence, cigarettes, uncomplicated; Z68.41 Body mass index [BMI] 40.0-44.9, adult | CPT/HCPCS: 99202 ==

== ENCOUNTER 2021-11-19 09:56 | Outpatient (REF) | payer OTHER, SELFPAY ==
--- NOTE | 2021-11-19 17:35 | PFT_ITS ---
FLOWS: FEV1 80% of predicted at 2.81 L. FVC 81% of predicted at 3.60 L. FEV1 to FVC ratio of 0.78. No bronchodilator response. LUNG VOLUMES: Total lung capacity 97% of predicted at 5.98 L. Residual volume 151% of predicted at 2.31 L. Slow vital capacity 83% of predicted at 3.67 L. Expiratory reserve volume 21% of predicted at 0.28 L. Diffusion capacity is mildly decreased, diffusion capacity corrects to normal after adjustment for alveolar ventilation. IMPRESSION: No obstructive or restrictive ventilatory defect. No bronchodilator response. Increased residual volume suggests air trapping. Decreased expiratory reserve volume suggests extrathoracic restriction, likely secondary to abdominal obesity. Rao Nguyen MD AP/MODL / [id number]
== END 2021-11-19 09:57 | disposition home or self-care (01) ==
LOC: HO.RESP 09:56
PROVIDERS: PCP Internal Medicine; Visit Provider Internal Medicine
DX: R06.00 Dyspnea, unspecified (principal); J44.9 Chronic obstructive pulmonary disease, unspecified; E66.01 Morbid (severe) obesity due to excess calories; F17.200 Nicotine dependence, unspecified, uncomplicated
CPT/HCPCS: 94060; 94727; 94729

== ENCOUNTER → 2021-12-06 09:20 | Outpatient (REF) | payer OTHER, SELFPAY | LOC: HO.SL 09:20 | PROVIDERS: PCP Internal Medicine; Visit Provider Internal Medicine | DX: G47.33 Obstructive sleep apnea (adult) (pediatric) (principal); R06.83 Snoring; R40.0 Somnolence; E66.01 Morbid (severe) obesity due to excess calories; F17.200 Nicotine dependence, unspecified, uncomplicated; Z71.6 Tobacco abuse counseling | CPT/HCPCS: 95806; 99212 ==

== ENCOUNTER 2021-12-29 08:51 | Day surgery (SDC) | payer OTHER, SELFPAY ==
[2021-12-24 10:10] VITALS: BMI 40.8
--- NOTE | 2021-12-28 11:57 | HO.ANESPROP2 ---
Documented by User: Melania Leach NP 12/28/21 11:59 HPI - Anesthesia Eval Consult details Narrative: 46yo M for Colonoscopy PMFSH Active Problems Active Problems: All Active Problems (Updated 12/06/21 @ 10:03 by Bobby Ralph MD) Dyspnea on exertion (Acute) Somnolence, daytime (Acute) Loud snoring (Acute) COPD (chronic obstructive pulmonary disease) (Acute) Smoker (Acute) RADHA (obstructive sleep apnea) (Acute) Mixed hyperlipidemia (Acute) Mild anxiety (Acute) Bleeding hemorrhoid (Acute) Colon cancer screening (Acute) Nephrolithiasis (Acute) Mild recurrent major depression (Acute) Wheezing (Acute) ALEXANDREA (acute kidney injury) (Acute) Sepsis (Acute) Acute UTI (Acute) Chronic pain syndrome (Acute) Right sided sciatica (Acute) Depression (Acute) GERD (gastroesophageal reflux disease) (Acute) Morbid obesity (Acute) Impaired glucose tolerance (Acute) Dyslipidemia (Acute) Essential hypertension (Acute) Disc degeneration, lumbar (Acute) Other spondylosis with radiculopathy, lumbar region (Acute) Past Medical History Medical History (Updated 12/06/21 @ 10:03 by Bobby Ralph MD) Bleeding hemorrhoid Chronic pain syndrome Colon cancer screening COPD (chronic obstructive pulmonary disease) Depression Disc degeneration, lumbar Dyslipidemia Dyspnea on exertion Essential hypertension GERD (gastroesophageal reflux disease) Impaired glucose tolerance Loud snoring Mild recurrent major depression Mixed hyperlipidemia Moderately severe major depression Morbid obesity RADHA (obstructive sleep apnea) Other spondylosis with radiculopathy, lumbar region Renal calculi Right sided sciatica Smoker Somnolence, daytime Wheezing Family History Family History Father Hypertension Sciatica Mother Stroke Hypertension Diabetes Brother Stroke Pancreatic cancer Family/Other Substance use disorder Family history of problems with anesthesia: No Surgical History Surgical History History of appendectomy History of extraction of renal calculus History of toe surgery History of vasectomy History of Problems with Anesthesia: Yes Social History Social History Household Members: Family Housing: House Do you presently have visiting nurse or other home services: No Alcohol intake: former Patient Tobacco Use Status: Current everyday Tobacco user Tobacco use type: Cigarette Cigarettes Per Day: 5 Years Smoked: 20 e-Cigarette/Vaping Use: Never Used Second Hand Smoke Exposure: Yes Substance Use Type: Marijuana Substance Use Type Other:: none today or yesterday Are you DNR?: No Advance Directives: No Advance Directives Information Provided: Yes Recently lost weight without trying: No service: No Current occupational status: unemployed Meds Allergies Allergy/AdvReac Type Severity Reaction Status Date / Time No Known Allergies Allergy Verified 12/06/21 09:46 [No Known Allergies*] Home Medications Medication Instructions Recorded Confirmed Last Taken Type hydroxyzine pamoate 25 mg capsule 25 mg PO TID 04/04/21 09/21/21 04/04/21 07:00 History sertraline 50 mg tablet 100 mg PO DAILY tab 09/16/21 09/21/21 Unknown History mirtazapine 45 mg tablet mg PO 09/21/21 09/21/21 Unknown History Exam Exam Date and Time: December 28, 2021 1157 Height,Weight and Vital Signs: Height 5 ft 6 in Weight 114.759 kg Narrative Narrative: PFT 10/2021 IMPRESSION:? No obstructive or restrictive ventilatory defect.? No bronchodilator response. Increased residual volume suggests air trapping.? Decreased expiratory reserve volume suggests extrathoracic restriction, likely secondary to abdominal obesity. Assessment and Plan Assessment Anesthesia Assessment: Chart Reviewed Final Anesthetic Review Family History of Problems with Anesthesia: No History of Problems with Anesthesia: Yes Documented by User: Mila Mccloud MD 12/29/21 10:08 [facility] Past Medical History Medical History (Updated 12/06/21 @ 10:03 by Bobby Ralph MD) Bleeding hemorrhoid Chronic pain syndrome Colon cancer screening COPD (chronic obstructive pulmonary disease) Depression Disc degeneration, lumbar Dyslipidemia Dyspnea on exertion Essential hypertension GERD (gastroesophageal reflux disease) Impaired glucose tolerance Loud snoring Mild recurrent major depression Mixed hyperlipidemia Moderately severe major depression Morbid obesity RADHA (obstructive sleep apnea) Other spondylosis with radiculopathy, lumbar region Renal calculi Right sided sciatica Smoker Somnolence, daytime Wheezing Family History Family History Father Hypertension Sciatica Mother Stroke Hypertension Diabetes Brother Stroke Pancreatic cancer Family/Other Substance use disorder Surgical History Surgical History History of appendectomy History of extraction of renal calculus History of toe surgery History of vasectomy Social History Social History Household Members: Family Housing: House Do you presently have visiting nurse or other home services: No Alcohol intake: former Patient Tobacco Use Status: Current everyday Tobacco user Tobacco use type: Cigarette Cigarettes Per Day: 5 Years Smoked: 20 e-Cigarette/Vaping Use: Never Used Second Hand Smoke Exposure: Yes Substance Use Type: Marijuana Substance Use Type Other:: none today or yesterday Are you DNR?: No Advance Directives: No Advance Directives Information Provided: Yes Recently lost weight without trying: No service: No Current occupational status: unemployed Meds Allergies Allergy/AdvReac Type Severity Reaction Status Date / Time No Known Allergies Allergy Verified 12/06/21 09:46 [No Known Allergies*] Home Medications Medication Instructions Recorded Confirmed Last Taken Type hydroxyzine pamoate 25 mg capsule 25 mg PO TID 04/04/21 09/21/21 04/04/21 07:00 History sertraline 50 mg tablet 100 mg PO DAILY tab 09/16/21 09/21/21 Unknown History mirtazapine 45 mg tablet mg PO 09/21/21 09/21/21 Unknown History Exam Airway Mallampati Class: III TM Dist: >3cm Neck ROM: Full Heart: rrr Lungs: cta Assessment and Plan Assessment Anesthesia Assessment: Anesthesia Plan Discussed and Chart Reviewed Final Anesthetic Review NPO: Yes ASA Class: III Final Preanesthetic Review: No Changes in Pt Med Stat, Meds/Allgs Chart Reviewed and Consent Obtained/Reviewed Patient Risk: Intermediate Procedure Risk: Intermediate Anesthetic Plan Anesthetic Plan: MAC: Disposition: Standard PACU
[2021-12-29 09:39] VITALS: BP 160/111; PULSE 80; RESP 20; TEMP 36.7; O2SAT 95
[2021-12-29] MEDS: Albuterol Sulfate (0.083%) 2.5 MG/3 ML VIAL.NEB INHALE (09:40)
[2021-12-29 09:42] VITALS: PULSE 77; RESP 18; O2SAT 95
--- NOTE | 2021-12-29 10:03 | MHC.SHP ---
Pre-Procedural Eval Section A Date of Service: 12/29/21 Section B Chief Complaint: screening Details of Present Illness: brother with pancreas cancer Relevant Family History (Specify if Yes): Yes Relevant Social History: Tobacco Use Present Medications: see Short Stay Collaborative assessment Medical History: Significant History (Bleeding hemorrhoid Chronic pain syndrome Colon cancer screening COPD (chronic obstructive pulmonary disease) Depression Disc degeneration, lumbar Dyslipidemia Dyspnea on exertion Essential hypertension GERD (gastroesophageal reflux disease) Impaired glucose tolerance Loud snoring Mild recurrent emre) History of Previous Operations: Relevant previous surgery/procedure and date(s) (History of appendectomy History of extraction of renal calculus History of toe surgery History of vasectomy) Allergies: Allergies Allergy/AdvReac Type Severity Reaction Status Date / Time No Known Allergies Allergy Verified 12/06/21 09:46 [No Known Allergies*] Review of Systems Sugical H&P ROS: Negative: Constitution, Cardiovascular, Respiratory, Neurological, Psychiatric, Hem-Onc, Allergic/Immunologic, Gastrointestinal, Genitourinary, Musculoskeletal, Integumentary, Endocrine and Eyes/Ears/Nose/Throat Exam Surgical H&P Exam: Normal: HEENT, Normal: Heart, Normal: Extremities, Normal: Abdomen, Normal: Skin and Normal: Neurological and Significant Findings: Lungs (mild wheeze) Plan Diagnosis/Plan: Unchanged I have reviewed the history and physical and performed a pertinent physical examination on my patient. No changes have occurred unless specified.
--- NOTE | 2021-12-29 10:04 | P.BOP_ITS ---
Brief Operative Note Date of Service: 12/29/21 Pre-op diagnosis: colon screening Post-op diagnosis: same Procedure: see op note Surgeon: Chacho Mae MD Anesthesia: MAC Was an Supervisor Customer Complaint Service used for this Procedure?: No Estimated blood loss (mL): 0 Condition: stable Disposition: PACU
--- NOTE | 2021-12-29 10:05 | P.OP_ITS ---
Operative Note Operative Note Date of Service: 12/29/21 Narrative: Operative Information Procedure Description: Colonoscopy Indication: screening colonoscopy Anesthesia: MAC COLONOSCOPY Instrument: Olympus variable stiffness pediatric scope 190L Colonoscopy Monitoring: Vital signs and clinical assessment, continuous EKG monitoring, Pulse oximetry, Carbon Dioxide monitoring and blood pressure monitoring were done throughout the procedure. Colon withdrawal time was 14 minutes. Procedure: The patient was placed in the left lateral decubitis position and pre-procedure medications were administered. After a digital rectal examination of the ano-rectum, the video colonoscope was inserted into the rectum and advanced through the colon to the cecum/TI. The colonoscope was slowly withdrawn in a retrograde panoramic fashion and the colon mucosa was carefully examined including a retroflexed view of the rectum. Findings and interventions are described below. Procedure Difficulty: moderate due to poor prep Findings: Terminal Ileum-not intubated slight granularity to colon mucosa so random bx taken to r/o infiltrative disorder Cecum:normal Ascending Colon: normal Transverse Colon -normal Descending Colon:normal Sigmoid Colon: several hyperplastic appearing polyps by Kudo pit pattern, few of the larger ones 10-12 mm were removed with cold forceps Rectum: Retroflexion with moderate sized internal hemorrhoids, grade II Anorectum - normal Colon preparation: Velarde Bowel Preparation Scale Right colon; 1-2 Transverse colon: 2 Left colon; 1 (0 = Unprepared colon segment with mucosa not seen due to solid stool that cannot be cleared. 1 = Portion of mucosa of the colon segment seen, but other areas of the colon segment not well seen due to staining, residual stool and/or opaque liquid. 2 = Minor amount of residual staining, small fragments of stool and/or opaque liquid, but mucosa of colon segment seen well. 3 = Entire mucosa of colon segment seen well with no residual staining, small fragments of stool or opaque liquid) Impression and Post Procedure Diagnosis: polyps internal hemorrhoids Plan: High fiber diet leaflet Avoid straining at stool, epsom salts and sitz bath, anusol supps or cream Repeat Colonoscopy in 6-12 months or earlier if clinically indicated, review prep again next time consider periodic pancreas screening with MRI due to FH of pancreas ca and he is a smoker as well Above findings were reviewed with the patient and relevant handouts were provided if indicated.
[2021-12-29 10:56] VITALS: BP 107/68; PULSE 82; RESP 16; TEMP 36.9; O2SAT 94
[2021-12-29 11:11] VITALS: BP 142/91; PULSE 73; RESP 16; O2SAT 94
[2021-12-29 11:25] VITALS: BP 144/100; PULSE 74; RESP 18; TEMP 36.9; O2SAT 96
== END 2021-12-29 12:06 ==
LOC: HO.SSS 08:53
PROVIDERS: PCP Internal Medicine; Visit Provider Internal Medicine Gastroenterology
PROC: 0DJD8ZZ Inspection of Lower Intestinal Tract, Via Natural or Artificial Opening Endoscopic (ICD-10-PCS; CPT 45378; principal; 2021-12-29 10:10)
DX: Z12.11 Encounter for screening for malignant neoplasm of colon (principal); K63.5 Polyp of colon; K64.1 Second degree hemorrhoids; K59.1 Functional diarrhea; K21.9 Gastro-esophageal reflux disease without esophagitis; I10 Essential (primary) hypertension; E78.2 Mixed hyperlipidemia; R73.02 Impaired glucose tolerance (oral); G47.33 Obstructive sleep apnea (adult) (pediatric); E66.01 Morbid (severe) obesity due to excess calories; Z68.41 Body mass index [BMI] 40.0-44.9, adult; Z79.899 Other long term (current) drug therapy; F17.210 Nicotine dependence, cigarettes, uncomplicated; F12.90 Cannabis use, unspecified, uncomplicated; Z87.442 Personal history of urinary calculi; Z90.49 Acquired absence of other specified parts of digestive tract
CPT/HCPCS: 45380; 88305; 94640

== ENCOUNTER 2022-01-03 13:12 | Outpatient (REF) | payer OTHER, SELFPAY ==
--- NOTE | ~2022-01-03 | US_ITS ---
EXAMINATION: US RETROPERITONEAL LIMITED (RENAL ONLY) CLINICAL INFORMATION: Calculus of kidney. COMPARISON: US retroperitoneal limited (renal only) 05/04/2021. XR abdomen KUB 04/13/2021. CT abdomen and pelvis 04/04/2021. TECHNIQUE: Real-time imaging of the kidneys. FINDINGS: RIGHT KIDNEY: 11.8 x 4.6 x 5.4 cm (SAG x AP x TRV). The kidney is normal in size, contour, and echogenicity. Renal cortical thickness is normal. No calculi or focal parenchymal lesions. No hydronephrosis. LEFT KIDNEY: 10.7 x 6.5 x 5.9 cm (SAG x AP x TRV). The kidney is normal in size, contour, and echogenicity. Renal cortical thickness is normal. No calculi or focal parenchymal lesions. No hydronephrosis. US/US renal BI IMPRESSION: Unremarkable renal ultrasound.
== END 2022-01-03 13:13 | disposition home or self-care (01) ==
LOC: HO.US 13:12
PROVIDERS: Visit Provider Urology
DX: N20.0 Calculus of kidney (principal)
CPT/HCPCS: 76775

== ENCOUNTER 2022-02-01 08:57 | Outpatient (REF) | payer OTHER, SELFPAY ==
[2022-02-01 09:22] LABS: Basophils Absolute Auto 0.1 X10*3/uL (0.0-0.2); Basophils Percent Auto 0.8 % (0-2); Eosinophils Absolute Auto 0.3 X10*3/uL (0.0-0.4); Eosinophils Percent Auto 2.9 % (0-4); Hematocrit 45.4 % (42.0-52.0); Hemoglobin 14.7 g/dl (14.0-18.0); Imm Gran Abs Auto 0.05 X10*3/uL (0.00-0.03); Imm Gran Pct Auto 0.5 % (0.0-0.4); Lymphocytes Absolute Auto 4.6 X10*3/uL (1.2-4.9); Lymphocytes Percent Auto 42.8 % (20-40); MANUAL DIFF FLAG SCAN; Mean Corpuscular HGB Conc 32.4 g/dl (31.0-36.0); Mean Corpuscular Hemoglobin 28.6 pg (27.0-33.0); Mean Corpuscular Volume 88.3 fL (80.0-98.0); Mean Platelet Volume 9.8 fL (9.4-12.4); Monocytes Absolute Auto 0.7 X10*3/uL (0.1-1.2); Monocytes Percent Auto 6.1 % (2-11); Neutrophils Percent Auto 46.9 % (45-73); Platelet Count 373 X10*3/uL (160-400); Red Blood Count 5.14 X10*6/uL (4.60-5.80); Red Cell Distribution Width 13.6 % (11.0-16.0); SCAN SMEAR FLAG 1; White Blood Count 10.6 X10*3/uL (4.8-10.8)
[2022-02-01 09:49] LABS: Alanine Aminotransferase 43 U/L (0-40); Albumin Level 4.3 g/dL (3.5-5.0); Alkaline Phosphatase 117 U/L (39-117); Anion Gap 13 (12-20); Aspartate Amino Transferase 22 U/L (5-37); Bilirubin Total 0.3 mg/dL (0.0-1.0); Blood Urea Nitrogen 15 mg/dL (9-16); Calcium 9.6 mg/dL (8.4-10.2); Carbon Dioxide 29 mmol/L (22-29); Chloride 104 mmol/L (96-108); Cholesterol 221 mg/dL; Estimated Glomerular Filt Rate > 60; Glucose Fasting 193 mg/dL (60-99); HDL Cholesterol 30 mg/dL; LDL Cholesterol Calculated 129 mg/dl; Potassium 4.6 mmol/L (3.3-5.1); Sodium 141 mmol/L (135-145); Total Protein 6.8 g/dL (6.5-8.0); Triglycerides 311 mg/dL
[2022-02-01 10:02] LABS: SLIDE REVIEW VERIFIED
[2022-02-01 10:11] LABS: Vitamin D 25-OH Total 17.6 ng/mL (>30)
== END 2022-02-01 08:58 | disposition home or self-care (01) ==
LOC: HO.LAB 08:57
PROVIDERS: PCP Internal Medicine; Visit Provider Internal Medicine
DX: E78.5 Hyperlipidemia, unspecified (principal); E78.2 Mixed hyperlipidemia; E55.9 Vitamin D deficiency, unspecified; J44.9 Chronic obstructive pulmonary disease, unspecified
CPT/HCPCS: 36415; 80053; 80061; 82306; 85025

== ENCOUNTER → 2022-02-09 09:19 | Outpatient (BNVA) | payer OTHER, SELFPAY | PROVIDERS: PCP Internal Medicine; Visit Provider Internal Medicine | DX: J45.909 Unspecified asthma, uncomplicated (principal); E66.01 Morbid (severe) obesity due to excess calories; Z68.41 Body mass index [BMI] 40.0-44.9, adult; G47.33 Obstructive sleep apnea (adult) (pediatric); F17.210 Nicotine dependence, cigarettes, uncomplicated | CPT/HCPCS: 99212 ==

== ENCOUNTER → 2022-03-04 13:10 | Outpatient (BNVA) | payer OTHER, SELFPAY | PROVIDERS: PCP Internal Medicine; Visit Provider Nurse Practitioner Family | DX: K21.9 Gastro-esophageal reflux disease without esophagitis (principal); K58.2 Mixed irritable bowel syndrome; R14.0 Abdominal distension (gaseous); R10.11 Right upper quadrant pain; Z80.0 Family history of malignant neoplasm of digestive organs; Z79.899 Other long term (current) drug therapy | CPT/HCPCS: 99212 ==

== ENCOUNTER 2022-03-25 09:52 | Outpatient (REF) | payer OTHER, SELFPAY ==
--- NOTE | ~2022-03-25 | MR_ITS ---
EXAMINATION: MR ABDOMEN WITHOUT AND WITH CONTRAST CLINICAL INFORMATION: Abdominal pain, family history of pancreatic cancer COMPARISON: CT abdomen pelvis 04/04/2021 TECHNIQUE: MRI of the abdomen before and after the IV administration of 10 mL of Gadavist was obtained using routine sequences. Heavily T2 weighted MRCP sequences were also obtained. FINDINGS: Exam is significantly technically limited by the [id number] and upper and lower portions of the liver, the upper portion of stomach, the upper portion of the spleen and the lower poles of the kidneys were excluded from the [id number] on multiple sequences including dynamic postcontrast sequences. LUNG BASES: The visualized lung bases are unremarkable. KIDNEYS AND URETERS: Unremarkable. GALLBLADDER: Unremarkable. LIVER AND BILIARY TREE: Loss of signal on opposed phase imaging compatible with hepatic steatosis. Scattered T2 hyperintense benign-appearing hepatic cysts, no imaging follow-up recommended. No intra or extrahepatic biliary duct dilatation. No intraluminal filling defect to suggest choledocholithiasis. PANCREAS: No pancreatic mass or pancreatic duct dilatation. No peripancreatic fluid collection. SPLEEN: Unremarkable ADRENAL GLANDS: Unremarkable GASTROINTESTINAL TRACT: Unremarkable. LYMPH NODES: No lymphadenopathy. VASCULAR: Unremarkable ABDOMINAL WALL: Unremarkable. OSSEOUS STRUCTURES: Unremarkable. MR/MR abdomen wo/w con IMPRESSION: Unremarkable MR appearance of the pancreas. Please note, this MR abdomen was targeted to evaluate the pancreas and portions of the other organs were not included in the field of view, as above detailed.
== END 2022-03-25 09:53 | disposition home or self-care (01) ==
LOC: HO.MRI 09:52
PROVIDERS: Visit Provider Nurse Practitioner Family
DX: R10.9 Unspecified abdominal pain (principal); R14.0 Abdominal distension (gaseous); Z80.0 Family history of malignant neoplasm of digestive organs
CPT/HCPCS: 74183; A9585

== ENCOUNTER → 2022-08-10 09:30 | Outpatient (BNVA) | payer OTHER, SELFPAY | PROVIDERS: PCP Internal Medicine; Visit Provider Internal Medicine | DX: J45.909 Unspecified asthma, uncomplicated (principal); G47.33 Obstructive sleep apnea (adult) (pediatric); E78.2 Mixed hyperlipidemia; F17.210 Nicotine dependence, cigarettes, uncomplicated; Z79.899 Other long term (current) drug therapy | CPT/HCPCS: 99212 ==

== ENCOUNTER 2022-09-02 13:13 | Outpatient (REF) | payer OTHER, SELFPAY ==
[2022-09-02 16:16] LABS: Alanine Aminotransferase 24 U/L (0-40); Albumin Level 4.2 g/dL (3.5-5.0); Alkaline Phosphatase 114 U/L (39-117); Amylase 32 U/L (28-100); Anion Gap 14 (12-20); Aspartate Amino Transferase 17 U/L (5-37); Bilirubin Total 0.4 mg/dL (0.0-1.0); Blood Urea Nitrogen 9 mg/dL (9-16); Calcium 9.2 mg/dL (8.4-10.2); Carbon Dioxide 28 mmol/L (22-29); Chloride 104 mmol/L (96-108); Cholesterol 161 mg/dL; Estimated Glomerular Filt Rate > 60; Glucose Fasting 108 mg/dL (60-99); HDL Cholesterol 21 mg/dL; LDL Cholesterol Calculated 84 mg/dl; Lipase 10 U/L (8-78); Potassium 4.3 mmol/L (3.3-5.1); Sodium 142 mmol/L (135-145); Total Protein 6.4 g/dL (6.5-8.0); Triglycerides 281 mg/dL
[2022-09-02 16:31] LABS: Vitamin D 25-OH Total 14.4 ng/mL (>30)
[2022-09-02 18:18] LABS: Creatinine Urine 392.75 mg/dL; Microalbum/Creatinine Ratio Ur 5.8 ug/mg cr
== END 2022-09-02 13:14 | disposition home or self-care (01) ==
LOC: HO.LAB 13:13
PROVIDERS: PCP Internal Medicine; Visit Provider Nurse Practitioner Family
DX: K21.9 Gastro-esophageal reflux disease without esophagitis (principal); K58.2 Mixed irritable bowel syndrome; R10.9 Unspecified abdominal pain; E11.9 Type 2 diabetes mellitus without complications; E78.5 Hyperlipidemia, unspecified; E55.9 Vitamin D deficiency, unspecified
CPT/HCPCS: 36415; 80053; 80061; 82043; 82150; 82306; 83690; 99212

== ENCOUNTER 2022-10-06 09:48 | Outpatient (REF) | payer OTHER, SELFPAY ==
--- NOTE | 2022-10-06 15:09 | PFT_ITS ---
Forced vital capacity is 79%, FEV1 76%. FEV1/FVC ratio is 76. FEF 25-75 62% and MVV 68%. Post bronchodilator therapy, there is no significant change. Total lung capacity 91%. Residual volume 110%. Diffusion capacity 78%. CONCLUSION: Very small degree of obstructive airway disorder is noted. There is no response to bronchodilator therapy. MD REBECA Johnson/MODL / [id number]
== END 2022-10-06 09:49 | disposition home or self-care (01) ==
LOC: HO.RESP 09:48
PROVIDERS: PCP Internal Medicine; Visit Provider Internal Medicine
DX: J44.9 Chronic obstructive pulmonary disease, unspecified (principal); J45.909 Unspecified asthma, uncomplicated; F17.200 Nicotine dependence, unspecified, uncomplicated
CPT/HCPCS: 94060; 94727; 94729; 99212

== ENCOUNTER → 2022-11-14 13:27 | Outpatient (BNVA) | payer OTHER, SELFPAY | PROVIDERS: PCP Internal Medicine; Referring Provider Internal Medicine; Visit Provider Nurse Practitioner Family | DX: Z12.11 Encounter for screening for malignant neoplasm of colon (principal); K21.9 Gastro-esophageal reflux disease without esophagitis | CPT/HCPCS: 99212 ==

== ENCOUNTER → 2023-01-05 06:48 | Day surgery (SDC) | payer OTHER, SELFPAY ==
--- NOTE | 2023-01-04 13:15 | P.CONAN_ITS ---
Documented by User: Melania Leach NP 01/04/23 13:17 HPI - Anesthesia Eval Consult details Narrative: 47yo M for Colonoscopy s/p [place] 12/2021 with [facility] Active Problems Active Problems: All Active Problems (Updated 01/03/23 @ 12:46 by Juliana Reynaga, FELIPE) Acute UTI (Acute) Sepsis (Acute) ALEXANDREA (acute kidney injury) (Acute) Nephrolithiasis (Acute) Mild anxiety (Acute) Asthma (Acute) Right sided sciatica (Acute) Morbid obesity due to excess calories (Acute) Blurry vision (Acute) Family history of pancreatic cancer (Acute) Diabetes mellitus (Acute) Physical exam (Acute) Dyspnea on exertion (Acute) Somnolence, daytime (Acute) Loud snoring (Acute) COPD (chronic obstructive pulmonary disease) (Acute) Smoker (Acute) RADHA (obstructive sleep apnea) (Acute) Mixed hyperlipidemia (Acute) Bleeding hemorrhoid (Acute) Colon cancer screening (Acute) Mild recurrent major depression (Acute) Wheezing (Acute) Chronic pain syndrome (Acute) Right sided sciatica (Acute) Depression (Acute) GERD (gastroesophageal reflux disease) (Acute) Morbid obesity (Acute) Impaired glucose tolerance (Acute) Dyslipidemia (Acute) Essential hypertension (Acute) Disc degeneration, lumbar (Acute) Other spondylosis with radiculopathy, lumbar region (Acute) Past Medical History Medical History Bleeding hemorrhoid Chronic pain syndrome Colon cancer screening COPD (chronic obstructive pulmonary disease) Depression Diabetes mellitus Disc degeneration, lumbar Dyslipidemia Dyspnea on exertion Essential hypertension Family history of pancreatic cancer GERD (gastroesophageal reflux disease) Impaired glucose tolerance Loud snoring Mild recurrent major depression Mixed hyperlipidemia Moderately severe major depression Morbid obesity RADHA (obstructive sleep apnea) Other spondylosis with radiculopathy, lumbar region Physical exam Renal calculi Right sided sciatica Smoker Somnolence, daytime Wheezing Family History Family History Father Hypertension Sciatica Mother Stroke Hypertension Diabetes Brother Stroke Pancreatic cancer Family/Other Substance use disorder Family history of problems with anesthesia: No Surgical History Surgical History History of appendectomy History of extraction of renal calculus History of toe surgery History of vasectomy Hx of colonoscopy History of Problems with Anesthesia: Yes Social History Social History Household Members: Family Housing: House Do you presently have visiting nurse or other home services: No Alcohol intake: former Patient Tobacco Use Status: Current everyday Tobacco user Tobacco use type: Cigarette Cigarettes Per Day: 5 Years Smoked: 20 Smoked in Last 30 Days: Yes e-Cigarette/Vaping Use: Never Used Patient Interested in Nicotine Replacement: No Second Hand Smoke Exposure: Yes Substance Use Type: Marijuana Are you DNR?: No Advance Directives: No Advance Directives Information Provided: Yes Recently lost weight without trying: No Poor oral hygiene: No service: No Current occupational status: unemployed Cognitive needs: Yes Hearing needs: No Vision needs: No Meds Allergies Allergy/AdvReac Type Severity Reaction Status Date / Time metal Allergy Intermediate Rash Uncoded 01/03/23 12:40 Home Medications Medication Instructions Recorded Confirmed Last Taken Type hydroxyzine pamoate 25 mg capsule 25 mg PO TID anxiety 04/04/21 01/03/23 04/04/21 07:00 History mirtazapine 45 mg tablet mg PO 09/21/21 09/27/22 Unknown History bupropion HCl 150 mg 24 hr tablet, 150 mg PO QAM 02/03/22 01/03/23 Unknown History extended release sertraline 100 mg tablet 100 mg PO DAILY 02/03/22 01/03/23 Unknown History Exam Exam Date and Time: January 04, 2023 1315 Pertinent Lab Results Pertinent Lab Results: Laboratory Tests 02/01/22 09/02/22 09:07 14:37 WBC 10.6 Hgb 14.7 Hct 45.4 Plt Count 373 Sodium 142 Potassium 4.3 Chloride 104 Carbon Dioxide 28 BUN 9 Creatinine 1.08 Narrative Narrative: PFT 09/2022 Forced vital capacity is 79%, FEV1 76%.? FEV1/FVC ratio is 76. ? FEF 25-75 62% and MVV 68%. ? Post bronchodilator therapy, there is no significant change. ? Total lung capacity 91%.? Residual volume 110%. ? Diffusion capacity 78%. ? CONCLUSION:? Very small degree of obstructive airway disorder is noted. ? There is no response to bronchodilator therapy. Assessment and Plan Assessment Anesthesia Assessment: Chart Reviewed Final Anesthetic Review Family History of Problems with Anesthesia: No History of Problems with Anesthesia: Yes Documented by User: Chana Hoyt MD 01/05/23 08:20 PMFSH Past Medical History Medical History Bleeding hemorrhoid Chronic pain syndrome Colon cancer screening COPD (chronic obstructive pulmonary disease) Depression Diabetes mellitus Disc degeneration, lumbar Dyslipidemia Dyspnea on exertion Essential hypertension Family history of pancreatic cancer GERD (gastroesophageal reflux disease) Impaired glucose tolerance Loud snoring Mild recurrent major depression Mixed hyperlipidemia Moderately severe major depression Morbid obesity RADHA (obstructive sleep apnea) Other spondylosis with radiculopathy, lumbar region Physical exam Renal calculi Right sided sciatica Smoker Somnolence, daytime Wheezing Family History Family History Father Hypertension Sciatica Mother Stroke Hypertension Diabetes Brother Stroke Pancreatic cancer Family/Other Substance use disorder Surgical History Surgical History History of appendectomy History of extraction of renal calculus History of toe surgery History of vasectomy Hx of colonoscopy History of Problems with Anesthesia: Yes (states breathing was low once after appy) Social History Social History Household Members: Family Housing: House Do you presently have visiting nurse or other home services: No Alcohol intake: former Patient Tobacco Use Status: Current everyday Tobacco user Tobacco use type: Cigarette Cigarettes Per Day: 5 Years Smoked: 20 Smoked in Last 30 Days: Yes e-Cigarette/Vaping Use: Never Used Patient Interested in Nicotine Replacement: No Second Hand Smoke Exposure: Yes Substance Use Type: Marijuana Are you DNR?: No Advance Directives: No Advance Directives Information Provided: Yes Recently lost weight without trying: No Poor oral hygiene: No service: No Current occupational status: unemployed Cognitive needs: Yes Hearing needs: No Vision needs: No Meds Allergies Allergy/AdvReac Type Severity Reaction Status Date / Time metal Allergy Intermediate Rash Uncoded 01/03/23 12:40 Home Medications Medication Instructions Recorded Confirmed Last Taken Type hydroxyzine pamoate 25 mg capsule 25 mg PO TID anxiety 04/04/21 01/03/23 04/04/21 07:00 History mirtazapine 45 mg tablet mg PO 09/21/21 09/27/22 Unknown History bupropion HCl 150 mg 24 hr tablet, 150 mg PO QAM 02/03/22 01/03/23 Unknown History extended release sertraline 100 mg tablet 100 mg PO DAILY 02/03/22 01/03/23 Unknown History Exam Airway Mallampati Class: III TM Dist: >3cm Neck ROM: Full Loose/Missing/Broken Teeth: Yes (missing /removable lower alexis) Heart: rr Lungs: cta Assessment and Plan Assessment Anesthesia Assessment: Anesthesia Plan Discussed Final Anesthetic Review History of Problems with Anesthesia: Yes (states breathing was low once after appy) NPO: Yes ASA Class: II and III (radha asthma ) Final Preanesthetic Review: No Changes in Pt Med Stat, Meds/Allgs Chart Reviewed, Consent Obtained/Reviewed and Anes Risks/Benef Reviewed Patient Risk: High (sleep apnea large neck) Procedure Risk: Low Anesthetic Plan Anesthetic Plan: MAC: Disposition: Standard PACU
[2023-01-05 07:11] VITALS: BP 140/90; PULSE 68; RESP 16; TEMP 36.4; O2SAT 96; BMI 42.0
[2023-01-05 07:24] LABS: Glucose, Whole Blood 204 mg/dL (60-115)
--- NOTE | 2023-01-05 07:40 | MHC.SHP ---
Pre-Procedural Eval Section A Date of Service: 01/05/23 Section B Chief Complaint: Constipation, unspecified Relevant Family History (Specify if Yes): No Relevant Social History: Tobacco Use Present Medications: see Short Stay Collaborative assessment Medical History: Significant History (Bleeding hemorrhoid Chronic pain syndrome Colon cancer screening COPD (chronic obstructive pulmonary disease) Depression Diabetes mellitus Disc degeneration, lumbar Dyslipidemia Dyspnea on exertion Essential hypertension Family history of pancreatic cancer GERD (gastroesophageal reflux disease) Impa) History of Previous Operations: Relevant previous surgery/procedure and date(s) (History of appendectomy History of extraction of renal calculus History of toe surgery History of vasectomy Hx of colonoscopy) Allergies: Allergies Allergy/AdvReac Type Severity Reaction Status Date / Time metal Allergy Intermediate Rash Uncoded 01/03/23 12:40 Review of Systems Sugical H&P ROS: Negative: Constitution, Cardiovascular, Respiratory, Neurological, Psychiatric, Hem-Onc, Allergic/Immunologic, Gastrointestinal, Genitourinary, Musculoskeletal, Integumentary, Endocrine and Eyes/Ears/Nose/Throat Exam Surgical H&P Exam: Normal: HEENT, Normal: Heart, Normal: Lungs, Normal: Extremities, Normal: Abdomen, Normal: Skin and Normal: Neurological Plan Diagnosis/Plan: Unchanged I have reviewed the history and physical and performed a pertinent physical examination on my patient. No changes have occurred unless specified. Time Spent With Patient Time: Total time managing care of this patient today ____ minutes.
[2023-01-05] MEDS: Albuterol Sulfate (0.083%) 2.5 MG/3 ML VIAL.NEB INHALE (07:48)
[2023-01-05 07:49] VITALS: PULSE 66; RESP 18; O2SAT 96
[2023-01-05] MEDS: Lactated Ringers 1,000 ML 100 ML IVCONT (07:49)
--- NOTE | 2023-01-05 08:26 | W.PM.OPN ---
Operative Note Operative Note Date of Service: 01/05/23 Narrative: Operative Information Procedure Description: Colonoscopy Indication: constipation and altered bowel habits Anesthesia: MAC COLONOSCOPY Instrument: Olympus variable stiffness pediatric scope 190L Colonoscopy Monitoring: Vital signs and clinical assessment, continuous EKG monitoring, Pulse oximetry, Carbon Dioxide monitoring and blood pressure monitoring were done throughout the procedure. Colon withdrawal time was 16 minutes. Procedure: The patient was placed in the left lateral decubitis position and pre-procedure medications were administered. After a digital rectal examination of the ano-rectum, the video colonoscope was inserted into the rectum and advanced through the colon to the cecum/TI. The colonoscope was slowly withdrawn in a retrograde panoramic fashion and the colon mucosa was carefully examined including a retroflexed view of the rectum. Findings and interventions are described below. Procedure Difficulty: moderate, looping, unable to intubate TI Findings: Terminal Ileum- unable to intubate Random colon bx and then from sigmoid and rectum separately Cecum:normal Ascending Colon: normal Transverse Colon -normal Descending Colon:normal Sigmoid Colon: patchy erythema, Rectum: Retroflexion with small, inflammed internal hemorrhoids, grade I Anorectum - normal Colon preparation: [place] Bowel Preparation Scale Right colon; 2 Transverse colon: 1-2 Left colon; 1-2 (0 = Unprepared colon segment with mucosa not seen due to solid stool that cannot be cleared. 1 = Portion of mucosa of the colon segment seen, but other areas of the colon segment not well seen due to staining, residual stool and/or opaque liquid. 2 = Minor amount of residual staining, small fragments of stool and/or opaque liquid, but mucosa of colon segment seen well. 3 = Entire mucosa of colon segment seen well with no residual staining, small fragments of stool or opaque liquid) Impression and Post Procedure Diagnosis: internal hemorrhoids non specific erythema sigmoid Plan: High fiber diet leaflet Avoid straining at stool, epsom salts and sitz bath, anusol supps or cream Repeat Colonoscopy in 5 years due to areas of fair prep or earlier if clinically indicated Above findings were reviewed with the patient and relevant handouts were provided if indicated.
[2023-01-05 08:29] VITALS: BP 118/70; PULSE 73; RESP 16; TEMP 36.6; O2SAT 96
[2023-01-05 08:44] VITALS: BP 136/91; PULSE 79; RESP 18; TEMP 36.6; O2SAT 95
== END | disposition home or self-care (01) ==
PROVIDERS: PCP Internal Medicine; Visit Provider Internal Medicine Gastroenterology
PROC: 0DJD8ZZ Inspection of Lower Intestinal Tract, Via Natural or Artificial Opening Endoscopic (ICD-10-PCS; CPT 45378; principal; 2023-01-05 08:30)
DX: K59.00 Constipation, unspecified (principal); K52.9 Noninfective gastroenteritis and colitis, unspecified; K64.0 First degree hemorrhoids; K21.9 Gastro-esophageal reflux disease without esophagitis; Z80.0 Family history of malignant neoplasm of digestive organs; G89.4 Chronic pain syndrome; M51.36 Other intervertebral disc degeneration, lumbar region; I10 Essential (primary) hypertension; J44.9 Chronic obstructive pulmonary disease, unspecified; E78.5 Hyperlipidemia, unspecified; E11.9 Type 2 diabetes mellitus without complications; Z79.899 Other long term (current) drug therapy; Z87.442 Personal history of urinary calculi; Z98.52 Vasectomy status; F17.210 Nicotine dependence, cigarettes, uncomplicated
CPT/HCPCS: 45380; 82947; 88305; 94640

== ENCOUNTER → 2023-01-13 08:20 | Outpatient (BNVA) | payer OTHER, SELFPAY | PROVIDERS: PCP Internal Medicine; Referring Provider Internal Medicine; Visit Provider Nurse Practitioner Family | DX: K59.04 Chronic idiopathic constipation (principal); K21.9 Gastro-esophageal reflux disease without esophagitis | CPT/HCPCS: 99212 ==

== ENCOUNTER 2023-02-09 09:03 | Outpatient (REF) | payer OTHER, SELFPAY ==
--- NOTE | ~2023-02-09 | US_ITS ---
EXAMINATION: US RETROPERITONEAL LIMITED (RENAL ONLY) CLINICAL INFORMATION: Calculus of kidney. COMPARISON: MRI abdomen 03/25/2022. Renal ultrasound 01/03/2022 and 05/04/2021. X-ray KUB 04/13/2021. CT abdomen and pelvis 04/04/2021. TECHNIQUE: Real-time imaging of the kidneys. FINDINGS: RIGHT KIDNEY: 11.0 x 4.6 x 5.2 cm (SAG x AP x TRV). The kidney is normal in size, contour, and echogenicity. Renal cortical thickness is normal. No calculi or focal parenchymal lesions. No hydronephrosis. LEFT KIDNEY: 10.5 x 6.4 x 5.3 cm (SAG x AP x TRV). The kidney is normal in size, contour, and echogenicity. Renal cortical thickness is normal. No calculi or focal parenchymal lesions. No hydronephrosis. Incidental note made of an echogenic liver consistent with hepatic steatosis. US/US renal BI IMPRESSION: 1. Normal-appearing kidneys. 2. Incidentally noted hepatic steatosis.
== END 2023-02-09 09:04 | disposition home or self-care (01) ==
LOC: HO.US 09:03
PROVIDERS: PCP Internal Medicine; Visit Provider Urology
DX: N20.0 Calculus of kidney (principal)
CPT/HCPCS: 76775

== ENCOUNTER 2023-04-05 10:43 | Outpatient (AMB) | payer OTHER, SELFPAY ==
--- NOTE | 2023-04-05 10:44 | A.OFFVIS_ITS ---
Intake Vital Signs 04/05/23 10:45 Height 5 ft 6 in Weight 246 lb 14.684 oz BMI 39.8 BP 114/72 Blood Pressure Location Lt brachial Position Sitting Pulse 76 Pulse Source Pulse Oximeter Pulse Oximetry (%) 96 Oxygen Delivery Method Room Air Intake Visit Reasons: Asthma Intake Note: Pt presents today for a f/u. He is experiencing coughing, wheezing, and shortness of breath on exertion, especially on the stairs. When coughing he brings up green mucus. Pt has also reduced number of cigarettes he is smoking per day. 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 Associate Required: No Allergies metal Allergy (Intermediate, Uncoded 04/05/23 10:55) Rash Medication List - Last Reconciled 04/05/23 by Bobby Ralph MD acetaminophen 1,000 mg (2 x 500 mg) PO Q6H PRN 30 days amlodipine 10 mg PO DAILY 90 days atorvastatin 80 mg PO BEDTIME 90 days blood sugar diagnostic (FreeStyle Lite Strips) Use 1 test strip once a day blood-glucose meter (FreeStyle Lite Meter kit) As directed bupropion HCl 150 mg PO QAM docusate sodium 100 mg PO BEDTIME ergocalciferol (vitamin D2) 1,250 mcg PO QWEEK 90 days gabapentin 100 mg PO BID 90 days gabapentin 400 mg PO BEDTIME 90 days hydrocortisone 2.5% (Anusol-HC) 1 appl [place] BID-QID PRN hydroxyzine pamoate 25 mg PO TID lancets (FreeStyle Lancets) Use 1 lancet once a day lisinopril 40 mg PO DAILY 90 days metformin 1,000 mg PO BID 90 days mirtazapine 45 mg PO DAILY omeprazole 40 mg PO QAM pyridoxine (vitamin B6) 100 mg PO DAILY 90 days sennosides (senna) 17.2 mg (2 x 8.6 mg) PO BEDTIME sertraline 100 mg PO DAILY Ventolin HFA 90 mcg/actuation (albuterol sulfate) 2 puffs inhalation Q4-6H PRN 30 days NS Do you need a note to return to daycare/school/sports/work: No HPI Asthma HPI Details 48 years old gentleman grossly obese, and with history of mild sleep apnea as well as bronchial asthma Comes after 6 months for follow-up. He has lost about 9 lb of weight in the last 6 month, Claims that he sleeps good, with propped up had side of the bed, and he sleeps in lateral position. Has no residual symptoms of sleep apnea at this time. Is bronchial asthma is also under control, he has to use Ventolin inhaler only once or twice a week for cough or some tight feeling in the chest. He has had no attacks of wheezing. Smoking is down to 3 cigarettes a day, and he is trying to quit completely but slowly. [facility] Medical History Bleeding hemorrhoid Chronic pain syndrome COPD (chronic obstructive pulmonary disease) Depression Diabetes mellitus Disc degeneration, lumbar Dyslipidemia Dyspnea on exertion Essential hypertension Family history of pancreatic cancer GERD (gastroesophageal reflux disease) Impaired glucose tolerance Loud snoring Mild recurrent major depression Mixed hyperlipidemia Moderately severe major depression Morbid obesity RADHA (obstructive sleep apnea) Other spondylosis with radiculopathy, lumbar region Renal calculi Right sided sciatica Smoker Somnolence, daytime Wheezing Surgical History History of appendectomy History of extraction of renal calculus History of toe surgery History of vasectomy Hx of colonoscopy Family History Father Hypertension Sciatica Mother Stroke Hypertension Diabetes Brother Stroke Pancreatic cancer Family/Other Substance use disorder Social History Household Members: Family Housing: House Do you presently have visiting nurse or other home services: No Alcohol intake: former Patient Tobacco Use Status: Current everyday Tobacco user Tobacco use type: Cigarette Cigarettes Per Day: 3 Years Smoked: 20 e-Cigarette/Vaping Use: Never Used Second Hand Smoke Exposure: Yes Substance Use Type: Marijuana service: No Current occupational status: unemployed Cognitive needs: Yes Hearing needs: No Vision needs: No Review of Systems Const All systems reviewed & are unremarkable except as noted in HPI and below Eyes Reports no additional complaints ENT Denies nasal congestion and Denies nasal discharge Card Denies chest pain, Denies irregular heart rhythm and Denies leg edema Resp Reports as per HPI GI Reports constipation and Reports heartburn Reports no additional complaints Musc Reports back pain Skin/Breast Reports system reviewed and no additional complaints, except as documented Neuro Reports no additional complaints and Reports radicular pain Psych Reports depression (Has had major depression a few times) Endo Reports other (Has borderline diabetes mellitus and hyperlipidemia) Physical Exam Vital Signs: BMI result Body Mass Index 39.8 Const Other: He is grossly overweight General: comfortable, no acute distress, alert and awake Orientation/consciousness: patient oriented x3 HEENT Head: Yes normal to inspection General nose exam: No nasal polyps present and No nasal discharge present Face and sinus: Yes sinuses nontender Mouth: oropharynx abnormals (Oropharynx is crowded and narrow, Mallampati class 4) Throat: Yes posterior oropharynx normal Eyes General: appearance normal, both eyes and all related structures Neck Neck: Yes normal visual inspection, Yes no lymphadenopathy, Yes trachea midline, Yes no JVD and Yes other (Neck circumference 17-1/2 inch) Thyroid: Thyroid normal Chest Chest palpation & inspection: normal inspection of the chest, normal palpation of entire chest wall and no tenderness Resp Effort & Inspection: normal respiratory effort Auscultation: clear to auscultation bilaterally, no crackles, no rhonchi and no wheezes Cardio Palpation: normal PMI Rate: regular rate Rhythm: regular rhythm Heart sounds: no gallops and no murmurs Peripheral pulses: Peripheral pulses 2+ throughout GI Palpation (GI): Soft to palpation, Tenderness to palpation present (GI), No hepatosplenomegaly present, Palpable mass present and Other GI palpation findings present (Abdomen is moderately obese and protuberant) Auscultation: normal bowel sounds Back/Spine/Pelvis Thoracic/Lumbar Spine: thoracic and lumbar spine normal to inspection, thoraco- lumbar ROM limited and thoraco-lumbar spasm Skin General skin exam: no rashes or lesions noted Neuro General: patient oriented x3, No gait normal (Slightly impaired due to back pain , uses cane) and no focal motor deficits Cranial nerves: Yes CN's II-XII intact bilaterally Extrem General: Yes normal to inspection, Yes no clubbing, cyanosis or edema and Yes no calf tenderness Psych Mental Status: mental status grossly normal Speech and movement: Normal speech and movement present Assessment & Plan Assessment & Plan (1) Morbid obesity due to excess calories: Comment: CONTINUES TO BE OBESE, BUT HAS LOST ABOUT 9 LB IN THE LAST 6 MINUTES. CLAIMS THAT HE IS TRYING TO CUT DOWN ON EATING AND TRYING TO WALK DAILY. HE IS COMMENDED FOR THIS MINIMAL WEIGHT LOSS AND URGED TO CONTINUE WATCHING HIS Code(s): E66.01 - Morbid (severe) obesity due to excess calories (2) RADHA (obstructive sleep apnea): Comment: PER SLEEP STUDY HE HAS ONLY MILD OBSTRUCTIVE SLEEP APNEA . WE ARE TRYING TO TREAT HIM WITH CONSERVATIVE MEASURES INCLUDING WEIGHT REDUCTION AND ALSO POSITION THERAPY. HE SEEMS TO BE DOING WELL AND AT PRESENT DOES NOT HAVE ANY SIGNIFICANT SYMPTOMS OF RADHA. Code(s): G47.33 - Obstructive sleep apnea (adult) (pediatric) (3) Smoker: Comment: History of longstanding smoking but only 5-6 cigarettes a day. Currently down to 3 cigarettes a day, he does have the planned to quit completely. Code(s): F17.200 - Nicotine dependence, unspecified, uncomplicated (4) Asthma: Comment: HE HAS MILD INTERMITTENT WHEEZING, PROBABLY RELATED TO HIS BEING OVERWEIGHT AND ALSO DUE TO SMOKING. PULMONARY FUNCTION TEST WAS ESSENTIALLY NORMAL. HE COULD STILL HAVE A BORDERLINE DEGREE OF REACTIVE AIRWAYS/BRONCHIAL ASTHMA. TX : ADVISE THAT HE SHOULD USE VENTOLIN 2 PUFFS Q 4-6 HOURS P.R.N. BUT ONLY IF HE HAS ANY SUSTAINED BOUT OF COUGH OR WHEEZING. Code(s): J45.909 - Unspecified asthma, uncomplicated Quality Reporting (2019) Adult ([facility] 138/10/19/68) Smoking risk assessment performed?: Yes Patient Tobacco Use Status: Current everyday Tobacco user Coding Level of Care Code Est Pt Level 3 (20196) Diagnoses Morbid obesity due to excess calories E66.01 RADHA (obstructive sleep apnea) G47.33 Smoker F17.200 Asthma J45.909
[2023-04-05 10:45] VITALS: BP 114/72; PULSE 76; O2SAT 96; BMI 39.8
== END 2023-04-05 11:03 | disposition home or self-care (01) ==
PROVIDERS: PCP Internal Medicine; Visit Provider Internal Medicine
DX: E66.01 Morbid (severe) obesity due to excess calories (principal); G47.33 Obstructive sleep apnea (adult) (pediatric); F17.200 Nicotine dependence, unspecified, uncomplicated; J45.909 Unspecified asthma, uncomplicated
CPT/HCPCS: 99213

== ENCOUNTER → 2023-04-05 10:43 | Outpatient (BNVA) | payer OTHER, SELFPAY | PROVIDERS: PCP Internal Medicine; Visit Provider Internal Medicine | DX: J45.909 Unspecified asthma, uncomplicated (principal); G47.33 Obstructive sleep apnea (adult) (pediatric); E66.01 Morbid (severe) obesity due to excess calories; F17.210 Nicotine dependence, cigarettes, uncomplicated | CPT/HCPCS: 99212 ==

== ENCOUNTER 2023-04-06 13:51 | Outpatient (AMB) | payer OTHER, SELFPAY ==
--- NOTE | 2023-04-06 12:10 | MHC.OFFVIS ---
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 Required: No Accompanied by: Self / Same As Patient Allergies metal Allergy (Intermediate, Uncoded 04/06/23 14:27) Rash Medication List - Last Reconciled 04/06/23 by Garett Fajardo MD acetaminophen 1,000 mg (2 x 500 mg) PO Q6H PRN 30 days amlodipine 10 mg PO DAILY 90 days atorvastatin 80 mg PO BEDTIME 90 days blood sugar diagnostic (FreeStyle Lite Strips) Use 1 test strip once a day blood-glucose meter (FreeStyle Lite Meter kit) As directed bupropion HCl 150 mg PO QAM docusate sodium 100 mg PO BEDTIME ergocalciferol (vitamin D2) 1,250 mcg PO QWEEK 90 days gabapentin 100 mg PO BID 90 days gabapentin 400 mg PO BEDTIME 90 days hydrocortisone 2.5% (Anusol-HC) 1 appl MT BID-QID PRN hydroxyzine pamoate 25 mg PO TID lancets (FreeStyle Lancets) Use 1 lancet once a day lisinopril 40 mg PO DAILY 90 days metformin 1,000 mg PO BID 90 days mirtazapine 45 mg PO DAILY omeprazole 40 mg PO QAM pyridoxine (vitamin B6) 100 mg PO DAILY 90 days sennosides (senna) 17.2 mg (2 x 8.6 mg) PO BEDTIME sertraline 100 mg PO DAILY Ventolin HFA 90 mcg/actuation (albuterol sulfate) 2 puffs inhalation Q4-6H PRN 30 days NS HPI HPI Comments History of Present Illness Details 04/06/2023-- Jose is a 48-year-old male who presents today to the office for a 1 year follow up. He has been following up with Dr. Valdez in the past. He was prescribed vitamin B6 at that time. He states that he discontinued taking the medication 6 months ago. He reports intermittent burning sensation secondary to urinating. He denies any family history of prostate cancer. He states he consumes 4-5 glasses of water a day. He had a renal US done on 02/09/2023 Plan: Increase water intake Continue vitamin B6. Continue monitor kidneys, will check renal US in one year. PSA screening, will check PSA prior to the next year follow up. [facility] Medical History Bleeding hemorrhoid Chronic pain syndrome COPD (chronic obstructive pulmonary disease) Depression Diabetes mellitus Disc degeneration, lumbar Dyslipidemia Dyspnea on exertion Essential hypertension Family history of pancreatic cancer GERD (gastroesophageal reflux disease) Impaired glucose tolerance Loud snoring Mild recurrent major depression Mixed hyperlipidemia Moderately severe major depression Morbid obesity RADHA (obstructive sleep apnea) Other spondylosis with radiculopathy, lumbar region Renal calculi Right sided sciatica Smoker Somnolence, daytime Wheezing Surgical History History of appendectomy History of extraction of renal calculus History of toe surgery History of vasectomy Hx of colonoscopy Family History Father Hypertension Sciatica Mother Stroke Hypertension Diabetes Brother Stroke Pancreatic cancer Family/Other Substance use disorder Social History Household Members: Family Housing: House Do you presently have visiting nurse or other home services: No Alcohol intake: former Patient Tobacco Use Status: Current everyday Tobacco user Tobacco use type: Cigarette Cigarettes Per Day: 3 Years Smoked: 20 e-Cigarette/Vaping Use: Never Used Second Hand Smoke Exposure: Yes Substance Use Type: Marijuana service: No Current occupational status: unemployed Cognitive needs: Yes Hearing needs: No Vision needs: No Review of Systems Const All systems reviewed & are unremarkable except as noted in HPI and below Reports no additional complaints Eyes Reports no additional complaints ENT Denies neck pain Card Denies leg edema Resp Denies cough GI Denies constipation Musc Reports no additional complaints and Denies neck pain Skin/Breast Denies rash and Denies unusual bruising Neuro Reports no additional complaints Psych Reports no additional complaints Endo Reports no additional complaints Jones/Lymph Reports no additional complaints Aller/Immun Reports no additional complaints Results AMB Urinalysis, Automated UA Leukoctes 0 Purvi/uL Last Edit by BRANDON Haley on 04/06/23 14:37 UA Nitrite Negative Last Edit by BRANDON Haley on 04/06/23 14:37 UA Urobilinogen 0.2 mg/dL Last Edit by Delfina Gamble Enedelia on 04/06/23 14:37 UA Protein 30 mg/dL Last Edit by Delfina Gamble [facility] on 04/06/23 14:37 1+ Delfina Gamble 04/06/23 14:37 UA pH 6.0 Last Edit by Delfina Gamble [facility] on 04/06/23 14:37 UA Blood 0 Omar/uL Last Edit by Delfina Gamble [facility] on 04/06/23 14:37 UA Specific [place] 1.020 Last Edit by Delfina Gamble [facility] on 04/06/23 14:37 UA Ketone Positive Last Edit by Delfina Gamble [facility] on 04/06/23 14:37 5mg Delfina Gamble 04/06/23 14:37 UA Bilirubin 1 mg/dL Last Edit by Delfina Gamble [facility] on 04/06/23 14:37 1+ Delfina Gamble 04/06/23 14:37 UA Glucose 0 mg/dL Last Edit by Delfina Gamble [facility] on 04/06/23 14:37 Results Reviewed Results Reviewed: Laboratory Last Values Urine pH (Auto) 6.0 04/06/23 14:30 Specific [place] (Auto) 1.020 04/06/23 14:30 Urine Protein (Auto) 30 mg/dL 04/06/23 14:30 Glucose (UA)(Auto) 0 mg/dL 04/06/23 14:30 Urine Ketones (Auto) Positive 04/06/23 14:30 Urine Blood (Auto) 0 Omar/uL 04/06/23 14:30 Urine Nitrite (Auto) Negative 04/06/23 14:30 Urine Bilirubin (Auto) 1 mg/dL 04/06/23 14:30 Urine Urobilinogen (Auto) 0.2 mg/dL 04/06/23 14:30 Leukocyte Esterase (Auto) 0 Purvi/uL 04/06/23 14:30 EXAMINATION: US RETROPERITONEAL LIMITED (RENAL ONLY) CLINICAL INFORMATION: Calculus of kidney. COMPARISON: MRI abdomen 03/25/2022. Renal ultrasound 01/03/2022 and 05/04/2021. X-ray KUB 04/13/2021. CT abdomen and pelvis 04/04/2021. FINDINGS: RIGHT KIDNEY: 11.0 x 4.6 x 5.2 cm (SAG x AP x TRV). The kidney is normal in size, contour, and echogenicity. Renal cortical thickness is normal. No calculi or focal parenchymal lesions. No hydronephrosis. LEFT KIDNEY: 10.5 x 6.4 x 5.3 cm (SAG x AP x TRV). The kidney is normal in size, contour, and echogenicity. Renal cortical thickness is normal. No calculi or focal parenchymal lesions. No hydronephrosis. Incidental note made of an echogenic liver consistent with hepatic steatosis. IMPRESSION: 1. Normal-appearing kidneys. ? 2. Incidentally noted hepatic steatosis. Assessment & Plan Assessment & Plan (1) Screening PSA (prostate specific antigen): Code(s): Z12.5 - Encounter for screening for malignant neoplasm of prostate (2) History of kidney stones: Code(s): Z87.442 - Personal history of urinary calculi Plan Increase water intake Continue vitamin B6. Continue monitor kidneys, will check renal US in one year. PSA screening, will check PSA prior to the next year follow up.? Orders: Orders PSA,Total (Free>4and<10) 11 Months Z12.5 - Encounter for screening for malignant neoplasm of prostate US renal BI 04/06/23 Z87.442 - Personal history of urinary calculi AMB Urinalysis Automated 04/06/23 Z13.9 - Encounter for screening, unspecified Medications: Refilled pyridoxine (vitamin B6) 100 mg PO DAILY 90 tabs 3RF 90 days N20.0 - Calculus of kidney Patient Instructions: The patient had an opportunity to ask questions regarding treatment plan. All questions were answered. Imaging, Laboratory studies and physical exam results were discussed and reviewed in detail. No major barriers to understanding were identified. The patient expressed understanding and agreement with the above treatment plan.? ? ? The patient is aware they should contact our office by phone for worsening of their current condition or the appearance of new symptoms. Compliance is encouraged with any medications and followup testing that is ordered.? ? ? It is a privilege to be allowed the opportunity to participate in the urologic care of your patient. If you have any questions or concerns regarding treatment for the above conditions please do not hesitate to contact me. The office telephone contact is [phone].? ? ? This note is constructed in part using voice recognition software. While every effort has been made to ensure accuracy scientific director errors may have been included.? ? ? Yours sincerely,? ? ? Garett Fajardo MD? Quality Reporting (2019) Adult ([facility] 138/10/19/68) Smoking risk assessment performed?: Yes Patient Tobacco Use Status: Current everyday Tobacco user Coding Level of Care Code Est Pt Level 3 (26089) Diagnoses Screening PSA (prostate specific antigen) Z12.5 History of kidney stones Z87.442
== END 2023-04-06 14:58 | disposition home or self-care (01) ==
PROVIDERS: PCP Internal Medicine; Visit Provider Urology
DX: Z12.5 Encounter for screening for malignant neoplasm of prostate (principal); Z87.442 Personal history of urinary calculi
CPT/HCPCS: 99213

== ENCOUNTER → 2023-04-06 13:51 | Outpatient (BNVA) | payer OTHER, SELFPAY | PROVIDERS: PCP Internal Medicine; Visit Provider Urology | DX: N20.0 Calculus of kidney (principal) | CPT/HCPCS: 99212 ==

== ENCOUNTER 2023-05-31 10:39 | Outpatient (REF) | payer OTHER, SELFPAY ==
[2023-05-31 11:48] LABS: Estimated Average Glucose 137 mg/dL; Hemoglobin A1c % 6.4 % (<6.0)
[2023-05-31 12:24] LABS: Creatinine Urine 287.13 mg/dL; Microalbum/Creatinine Ratio Ur 4.1 ug/mg cr (<30)
[2023-05-31 12:24] LABS: Alanine Aminotransferase 18 U/L (0-40); Alkaline Phosphatase 91 U/L (39-117); Anion Gap 13 (12-20); Aspartate Amino Transferase 15 U/L (5-37); Bilirubin Total 0.3 mg/dL (0.0-1.0); Blood Urea Nitrogen 11 mg/dL (9-16); Calcium 9.3 mg/dL (8.4-10.2); Carbon Dioxide 28 mmol/L (22-29); Chloride 105 mmol/L (96-108); Cholesterol 133 mg/dL (<200); Estimated Glomerular Filt Rate > 60; Glucose Fasting 114 mg/dL (60-99); HDL Cholesterol 25 mg/dL (>40); LDL Cholesterol Calculated 65 mg/dL (<100); Potassium 4.1 mmol/L (3.3-5.1); Sodium 142 mmol/L (135-145); Total Protein 6.4 g/dL (6.5-8.0); Triglycerides 219 mg/dL (<150); Vitamin D 25-OH Total 27.3 ng/mL (>30)
[2023-05-31 12:47] LABS: Folate 4.6 ng/mL (> or = 4.0); Vitamin B12 213 pg/mL (200-900)
== END 2023-05-31 10:40 | disposition home or self-care (01) ==
LOC: HO.LAB 10:39
PROVIDERS: PCP Internal Medicine; Visit Provider Internal Medicine
DX: M54.31 Sciatica, right side (principal); E11.40 Type 2 diabetes mellitus with diabetic neuropathy, unspecified; E78.5 Hyperlipidemia, unspecified; E53.8 Deficiency of other specified B group vitamins; E55.9 Vitamin D deficiency, unspecified
CPT/HCPCS: 36415; 80053; 80061; 82043; 82306; 82570; 82607; 82746; 83036

== ENCOUNTER 2023-06-05 08:23 | Outpatient (AMB) | payer OTHER, SELFPAY ==
--- NOTE | 2023-06-05 08:30 | MHC.PC.OV ---
Vital Signs 06/05/23 08:32 Height 5 ft 6 in Weight 246 lb 8 oz BMI 39.8 BP 122/74 Blood Pressure Location Lt brachial Position Sitting Pulse 84 Pulse Source Pulse Oximeter Pulse Oximetry (%) 96 Oxygen Delivery Method Room Air Intake Visit Reasons: Follow up DM Intake Note: Patient is here to follow up on DM. Director Cardiovascular Required: No Mail Processing Associate: Not Required per policy Accompanied by: Self / Same As Patient Allergies metal Allergy (Intermediate, Uncoded 06/05/23 08:31) Rash Tobacco use date assessed: 06/05/23 Dental Screening Dental Screen Date: 06/05/23 Did you have a dental visit in the last 12 months?: Yes Did you have a dental problem in the last 6 months where you did not have access to dental care?: No Was dental information given to patient?: Patient has dentist HPI HPI Comments History of Present Illness Details This is a 47-year-old male with diabetes mellitus type 2, COPD, mild recurrent major depression and morbid obesity. Patient of Dr. Portillo last seen in December, presents today for follow up. COPD has been stable with inhalers and this is follow by pulmonology. He is morbidly obese with a BMI of 40.8 and was advised to diet and exercise as tolerated to reach BMI goal less than 30. Hgb A1c today: 6.4% . Patient reports that his left eye is bothering him since he his eyes dilated yesterday, patient advised to call his eye doctor to follow-up. Flu shot given in office today. [facility] Medical History Bleeding hemorrhoid Chronic pain syndrome COPD (chronic obstructive pulmonary disease) Depression Diabetes mellitus Disc degeneration, lumbar Dyslipidemia Dyspnea on exertion Essential hypertension Family history of pancreatic cancer GERD (gastroesophageal reflux disease) Impaired glucose tolerance Loud snoring Mild recurrent major depression Mixed hyperlipidemia Moderately severe major depression Morbid obesity RADHA (obstructive sleep apnea) Other spondylosis with radiculopathy, lumbar region Renal calculi Right sided sciatica Smoker Somnolence, daytime Wheezing Surgical History Hx of colonoscopy History of extraction of renal calculus History of toe surgery History of vasectomy History of appendectomy Family History Father Hypertension Sciatica Mother Stroke Hypertension Diabetes Brother Stroke Pancreatic cancer Family/Other Substance use disorder Social History Household Members: Family Housing: House Do you presently have visiting nurse or other home services: No Alcohol intake: former Patient Tobacco Use Status: Current everyday Tobacco user Tobacco use type: Cigarette Cigarettes Per Day: 3 Years Smoked: 20 Packs per year/per ci.00 e-Cigarette/Vaping Use: Never Used Second Hand Smoke Exposure: Yes Substance Use Type: Marijuana service: No Current occupational status: unemployed Cognitive needs: Yes (Cane) Hearing needs: No Vision needs: No Questionnaire Thrive Questionnaire Date Thrive assessed: 09/27/22 FUNMILAYO-7 AMB Questionnaire FUNMILAYO-7 Date FUNMILAYO - 7 assessed: 09/27/22 Source: Developed by Drs. Montana Dubose, Jaleesa White, Cruz Coats and colleagues, with an educational nelda from [employer]. Review of Systems Const Denies chills, Denies fatigue, Denies fever(s) and Denies poor appetite Eyes Denies no additional complaints ENT Reports Normal hearing present Card Denies chest pain, Denies syncope, Denies rapid heart rate and Denies dyspnea Resp Denies cough and Denies dyspnea GI Denies change in stool character, Denies constipation, Denies diarrhea, Denies nausea and Denies vomiting Denies dysuria, Denies urinary frequency and Denies urinary urgency Neuro Reports Normal hearing present, Denies confusion and Denies syncope Psych Denies confusion Endo Denies fatigue Physical exam (Primary Care) Vital Signs: Last Vital Signs Pulse 84 06/05/23 08:32 BP 122/74 06/05/23 08:32 Pulse Ox 96 06/05/23 08:32 Oxygen Delivery Method Room Air 06/05/23 08:32 BMI result Body Mass Index 39.8 Tobacco/Smoking Status: Tobacco use Status Tobacco use date assessed 06/05/23 06/05/23 08:32 Patient Tobacco Use Status Current everyday Tobacco 06/05/23 08:31 Tobacco use type Cigarette 06/05/23 08:31 e-Cigarette/Vaping Use Never Used 06/05/23 08:31 Thrive Assessment: Date of Thrive Assessment Date Thrive assessed 09/27/22 06/05/23 08:31 Const General: No confusion Orientation/consciousness: No confusion HENMT Head: Yes normocephalic and Yes atraumatic Eyes Conjunctivae: conjunctivae normal Chest Chest palpation & inspection: normal inspection of the chest Resp Effort & Inspection: normal respiratory effort Auscultation: clear to auscultation bilaterally, no crackles, no rhonchi and no wheezes Cardio Rate: regular rate Rhythm: regular rhythm Heart sounds: S1 normal heart sound present and S2 normal heart sound present GI Inspection: Yes normal to inspection Neuro General: No confusion Cranial nerves: Yes Normal hearing present Extrem General: No edema Office Procedures Flu Questionnaire Does the patient have a severe egg allergy?: No Does the patient have severe life threatening allergies?: No Does the patient have a fever or illness today?: No Has the patient ever had Guillain-[place] Syndrome?: No Has the patient ever had any past reaction to a flu shot?: No Flu Questionnaire Does the patient have a severe egg allergy?: No Does the patient have severe life threatening allergies?: No Does the patient have a fever or illness today?: No Has the patient ever had Guillain-[place] Syndrome?: No Has the patient ever had any past reaction to a flu shot?: No Immunizations flu vacc [id number] 6mos up(PF) 60 mcg(15 mcgx4)/0.5 mL IM syringe Performing Provider: MORIS Rivera Performing Location: [facility] Administered by: Vandana Cosme on 06/05/23 08:45 Dose Route Admin Location Dispensed Lot Number Expiration Date ND Tar Heater Operator 0.5 mL IM Right Deltoid 0.5 mL [id number] 02/25/24 32353-560-94 [facility] V[facility] Given Date VIS Provided VIS Publication Date 06/05/23 Single Vaccine 21 Eligibility Eligibility Date Funding Source Not C Eligible 06/05/23 Private flu vacc [id number] 6mos up(PF) 60 mcg(15 mcgx4)/0.5 mL IM syringe Performing Provider: MORIS Rivera Performing Location: [facility] Documented (not given) by: BRANDON Amezcua on 06/05/23 08:37 Dose Route Admin Location Dispensed Lot Number Expiration Date NDC Tar Heater Operator 0.5 mL IM mL VIS Given Date VIS Provided VIS Publication Date Single Vaccine 21 Eligibility Eligibility Date Funding Source Assessment and Plan Assessment & Plan (1) Essential hypertension: Code(s): I10 - Essential (primary) hypertension Plan: Continue on amlodipine 10 mg daily. Follow low-salt diet exercise. (2) Dyslipidemia: Code(s): E78.5 - Hyperlipidemia, unspecified Plan: Continue on atorvastatin 80 mg. Avoid fried foods, chicken skin, eggs, butter,margarine, pastries and?? red meat. LDL goal less than 100. (3) COPD (chronic obstructive pulmonary disease): Comment: Because of his history of smoking for many years, history of intermittent cough and wheeze, he is at risk of chronic obstructive pulmonary disease. Pulmonary function test has not been done . RESCEDULED TX : For the time being he is advised to continue using albuterol 2 puffs Q 6 hours only p.r.n.. Code(s): J44.9 - Chronic obstructive pulmonary disease, unspecified Plan: Continue on current inhalers and continue to follow-up pulmonology. (4) Diabetes mellitus: Code(s): E11.9 - Type 2 diabetes mellitus without complications Plan: Hemoglobin A1c: 6.4%, below goal of 6.5% Continue on metformin a 1000 mg b.i.d. Patient educated to decrease the amount of carbohydrate intake such as pasta, bread, rice and potatoes are all sugar in addition to the sweet stuff. Remember that fruits are good but they also have sugar. Plan Follow-up 3 months. Orders: Orders Comprehensive [place]. Panel Fast 3 Months E11.9 - Type 2 diabetes mellitus without complications Influenza [id number] Immunization Today Z23 - Encounter for immunization Influenza [id number] Immunization Today Z23 - Encounter for immunization Hemoglobin A1c 3 Months E11.9 - Type 2 diabetes mellitus without complications Lipid Panel 3 Months Z13.220 - Encounter for screening for lipoid disorders Medications: New flu vacc [id number] 6mos up(PF) 0.5 mL IM ONCE 0.5 mL 0RF Z23 - Encounter for immunization Refilled ergocalciferol (vitamin D2) 1,250 mcg PO QWEEK 13 caps 1RF 90 days Coding Level of Care Code Est Pt Level 4 (30063) Diagnoses Essential hypertension I10 Dyslipidemia E78.5 COPD (chronic obstructive pulmonary disease) J44.9 Diabetes mellitus E11.9
[2023-06-05 08:32] VITALS: BP 122/74; PULSE 84; O2SAT 96; BMI 39.8
== END 2023-06-05 08:52 | disposition home or self-care (01) ==
PROVIDERS: PCP Internal Medicine; Visit Provider Nurse Practitioner Family
DX: I10 Essential (primary) hypertension (principal); E78.5 Hyperlipidemia, unspecified; J44.9 Chronic obstructive pulmonary disease, unspecified; E11.9 Type 2 diabetes mellitus without complications; Z23 Encounter for immunization
CPT/HCPCS: 90471; 90686; 99214

== ENCOUNTER 2023-09-27 16:13 | Outpatient (AMB) | payer OTHER, SELFPAY ==
--- NOTE | 2023-09-27 16:17 | MHC.PC.OV ---
Vital Signs 09/27/23 16:20 Height 5 ft 6 in Weight 241 lb BMI 38.9 BP 138/84 Blood Pressure Location Lt brachial Position Sitting Intake Visit Reasons: DM, HLD, HTN, COPD Intake Note: Patient here for a follow up DM, HLD, HTN, COPD Relief Map Modeler Required: No Accompanied by: Self / Same As Patient Allergies metal Allergy (Intermediate, Uncoded 09/27/23 16:37) Rash Medication List - Last Reconciled 09/27/23 by Lucia Severino MD acetaminophen 1,000 mg (2 x 500 mg) PO Q6H PRN 30 days amlodipine 10 mg PO DAILY 90 days atorvastatin 80 mg PO BEDTIME 90 days blood sugar diagnostic (FreeStyle Lite Strips) Use 1 test strip once a day blood-glucose meter (FreeStyle Lite Meter kit) As directed bupropion HCl 150 mg PO QAM docusate sodium 100 mg PO BEDTIME ergocalciferol (vitamin D2) 1,250 mcg PO QWEEK 90 days gabapentin 400 mg PO BEDTIME 90 days gabapentin 100 mg PO BID 90 days hydrocortisone 2.5% (Anusol-HC) 1 appl UT BID-QID PRN hydroxyzine pamoate 25 mg PO TID lancets (FreeStyle Lancets) Use 1 lancet once a day lisinopril 40 mg PO DAILY 90 days metformin 1,000 mg PO BID 90 days mirtazapine 45 mg PO DAILY omeprazole 40 mg PO QAM pyridoxine (vitamin B6) 100 mg PO DAILY 90 days sennosides (senna) 17.2 mg (2 x 8.6 mg) PO BEDTIME sertraline 100 mg PO DAILY Ventolin HFA 90 mcg/actuation (albuterol sulfate) 2 puffs inhalation Q4-6H PRN 30 days NS Tobacco use date assessed: 09/27/23 Dental Screening Dental Screen Date: 09/27/23 Did you have a dental visit in the last 12 months?: Yes Did you have a dental problem in the last 6 months where you did not have access to dental care?: No Was dental information given to patient?: Patient has dentist HPI HPI Comments History of Present Illness Details This is a 48-year-old male with diabetes mellitus type 2, hypertension, hyperlipidemia, mild major depression, COPD and lumbar spondylosis with radiculopathy that comes today for follow-up on his conditions. Walks with a cane for gait stability due to chronic low back pain. I will increase gabapentin. Denies any fever, bowel or bladder incontinence. A1c within goal. Blood pressure stable. LDL within goal. Still has depression with medications and this is follow by Psychiatry. No chest pain or shortness of breath. COPD has been stable with rescue inhaler as needed and this is follow by pulmonology. [facility] Medical History (Updated 09/27/23 @ 18:19 by Lucia Severino MD) Morbid obesity due to excess calories Family history of pancreatic cancer Diabetes mellitus Dyspnea on exertion Somnolence, daytime Loud snoring COPD (chronic obstructive pulmonary disease) Smoker RADHA (obstructive sleep apnea) Mixed hyperlipidemia Bleeding hemorrhoid Mild recurrent major depression Wheezing Moderately severe major depression Renal calculi Chronic pain syndrome Right sided sciatica Depression GERD (gastroesophageal reflux disease) Morbid obesity Impaired glucose tolerance Dyslipidemia Essential hypertension Disc degeneration, lumbar Other spondylosis with radiculopathy, lumbar region Surgical History Hx of colonoscopy History of extraction of renal calculus History of toe surgery History of vasectomy History of appendectomy Family History Father Hypertension Sciatica Mother Stroke Hypertension Diabetes Brother Stroke Pancreatic cancer Family/Other Substance use disorder Social History Household Members: Family Housing: House Do you presently have visiting nurse or other home services: No Alcohol intake: former Comment: medicated, see MAR Patient Tobacco Use Status: Current everyday Tobacco user Tobacco use type: Cigarette Cigarettes Per Day: 3 Years Smoked: 20 e-Cigarette/Vaping Use: Never Used Second Hand Smoke Exposure: Yes Substance Use Type: Marijuana service: No Current occupational status: unemployed Cognitive needs: Yes (Cane) Hearing needs: No Vision needs: Yes Questionnaire PHQ-9 Over the last 2 weeks, how often have you been bothered by any of the following problems? 1. Little interest or pleasure in doing things: nearly every day 2. Feeling down, depressed, or hopeless: more than half the days 3. Trouble falling or staying asleep, or sleeping too much: not at all 4. Feeling tired or having little energy: nearly every day 5. Poor appetite or overeating: several days 6. Feeling bad about yourself - or that you are a failure or have let yourself or your family down: several days 7. Trouble concentrating on things, such as reading the newspaper or watching television: nearly every day 8. Moving or speaking so slowly that other people could have noticed. Or the opposite - being so fidgety or restless that you have been moving around a lot more than usual: not at all 9. Thoughts that you would be better off or of hurting yourself in some way: not at all Total score: 13 Depression Screening Interpretation: Positive Depression Screening Follow-up: Existing condition, In treatment and Community Mental Health Worker F/U Depression Screening Done: Yes 08102 - PHQ-9 Billing: Yes Source: Developed by Drs. Montana Dubose, Jaleesa White, Cruz Coats and colleagues, with an educational nelda from [employer]. Thrive Questionnaire Date Thrive assessed: 09/27/23 I am a: Patient What is your living situation today?: I have a steady place to live Within the past 12 months, did the food you bought not last and you didn't have the money to get more?: Never true Within the past 12 months, did you worry whether your food would run out before you got money to buy more?: Never true Do you have trouble paying for medicines?: No Do you have trouble getting transportation to medical appointments?: No Do you have trouble paying your heating and electricity bill?: No Do you have trouble taking care of your child, family member or friend?: No Do you have trouble with day-to-day activities such as bathing, preparing meals, shopping, managing finances, etc.?: No Are you currently unemployed and looking for a job?: No Are you interested in more education?: No Please select the resources that you would like help with: None Currently or been in a relationship where the following occur: no concerns reported THRIVE Score: 0 AUDIT C Alcohol Use Questionnaire (AUDIT-C) 1. How often do you have a drink containing alcohol?: Never Total Score: 0 FUNMILAYO-7 AMB Questionnaire FUNMILAYO-7 Date FUNMILAYO - 7 assessed: 09/27/23 Feeling nervous, anxious, or on edge: 3 = Nearly every day Not being able to stop or control worryin = More than half the days Worrying too much about different things: 3 = Nearly every day Trouble relaxin = Nearly every day Being so restless that it is hard to sit still: 3 = Nearly every day Becoming easily annoyed or irritable: 3 = Nearly every day Feeling afraid as if something awful might happen: 1 = Several days Total FUNMILAYO-7 score (0-4 normal; 5-9 mild; 10-14 moderate; 15-21 severe): 18 Source: Developed by Drs. Montana Dubose, Jaleesa White, Cruz Coats and colleagues, with an educational nelda from [employer]. FUNMILAYO-7 Assessment Billing FUNMILAYO-7 Assessment Tool: FUNMILAYO-7 Assessment 74566 Review of Systems Const All systems reviewed & are unremarkable except as noted in HPI and below Eyes Reports no additional complaints, Denies change in vision and Denies other visual disturbances Card Denies chest pain at rest, Denies chest pain with activity, Denies edema, Denies irregular heart rhythm, Denies claudication, Denies dyspnea, Denies dyspnea on exertion, Denies orthopnea, Denies paroxysmal nocturnal dyspnea and Denies slow heart rate Resp Denies cough, Denies dyspnea and Denies dyspnea on exertion GI Denies abdominal pain, Denies change in bowel habits, Denies excessive flatus, Denies nausea and Denies vomiting Denies urinary hesitancy, Denies urinary incontinence and Denies urinary urgency Musc Reports abnormal gait, Reports back pain, Denies atrophy, Denies deformity and Denies limited range of motion Skin/Breast Denies bleeding lesions, Denies changing lesions and Denies rash Neuro Reports abnormal gait, Denies behavioral changes, Denies confusion and Denies lack of coordination Psych Denies behavioral changes and Denies confusion Physical exam (Primary Care) Vital Signs: Last Vital Signs BP 138/84 09/27/23 16:20 BMI result Body Mass Index 38.9 Tobacco/Smoking Status: Tobacco use Status Tobacco use date assessed 09/27/23 09/27/23 16:23 Patient Tobacco Use Status Current everyday Tobacco 09/27/23 16:18 Tobacco use type Cigarette 09/27/23 16:18 e-Cigarette/Vaping Use Never Used 09/27/23 16:18 PHQ-9: PHQ-9 Score PHQ-9: Total score 13 09/27/23 16:43 Depression Screening Interpretation: Positive Depression Screening Follow-up: Existing condition, In treatment and Community Mental Health Worker F/U Thrive Assessment: Date of Thrive Assessment Date Thrive assessed 09/27/23 09/27/23 16:29 Currently or been in a relationship where the following occur: no concerns reported Const General: No confusion Orientation/consciousness: patient oriented x3 and No confusion Limitations: ambulation with cane Eyes General: appearance normal, both eyes and all related structures Eyelids: Yes eyelids normal Conjunctivae: conjunctivae normal Neck Neck: Yes normal visual inspection and Yes supple Resp Effort & Inspection: normal respiratory effort Auscultation: clear to auscultation bilaterally Cardio Jugular venous distension: no JVD Rate: regular rate Rhythm: regular rhythm Heart sounds: S1 normal heart sound present and S2 normal heart sound present Neuro General: patient oriented x3, no focal motor deficits and No confusion Extrem General: Yes full ROM Psych Appearance: grossly normal Results AMB Hemoglobin A1c AMB Hemoglobin A1c 6.3 % Last Edit by BRANDON Henderson on 09/27/23 16:30 Results Reviewed Results Reviewed: Laboratory Last Values Hgb A1c (Clinic) 6.3 % (4.0-6.0) H 09/27/23 16:16 Assessment and Plan Assessment & Plan (1) Diabetes mellitus: Code(s): E11.9 - Type 2 diabetes mellitus without complications Qualifiers: Diabetes mellitus type: type 2 Diabetes mellitus termite control representative insulin use: without termite control representative use Diabetes mellitus complication status: without complication Qualified Code(s): E11.9 - Type 2 diabetes mellitus without complications Plan: Continue metformin. A1c goal is equal or less than 7%. (2) COPD (chronic obstructive pulmonary disease): Comment: Because of his history of smoking for many years, history of intermittent cough and wheeze, he is at risk of chronic obstructive pulmonary disease. Pulmonary function test has not been done . RESCEDULED TX : For the time being he is advised to continue using albuterol 2 puffs Q 6 hours only p.r.n.. Code(s): J44.9 - Chronic obstructive pulmonary disease, unspecified Plan: Use rescue inhaler as needed. Follow-up with pulmonology. (3) Mixed hyperlipidemia: Code(s): E78.2 - Mixed hyperlipidemia Plan: Continue statins. LDL goal is less than 70. (4) Mild recurrent major depression: Code(s): F33.0 - Major depressive disorder, recurrent, mild Plan: Continue bupropion, sertraline and mirtazapine. Follow-up with psychiatry. (5) Essential hypertension: Code(s): I10 - Essential (primary) hypertension Plan: Continue lisinopril and amlodipine. Blood pressure goal is equal or less than 130/80. (6) Other spondylosis with radiculopathy, lumbar region: Code(s): M47.26 - Other spondylosis with radiculopathy, lumbar region Plan: Increase gabapentin to 300 mg twice a day and 400 mg at bedtime. Orders: Orders Comprehensive [place]. Panel Fast 4 Months E11.9 - Type 2 diabetes mellitus without complications AMB Hemoglobin A1c Today E11.9 - Type 2 diabetes mellitus without complications Lipid Panel 4 Months E78.5 - Hyperlipidemia, unspecified Microalbumin, Random (w Creat) 4 Months E11.9 - Type 2 diabetes mellitus without complications Vitamin D 25-OH Total 4 Months E55.9 - Vitamin D deficiency, unspecified Medications: New gabapentin 300 mg PO BID 30 days 60 caps 0RF Discontinued gabapentin PT REPORTS TAKING 100MG BID AT 9AM AND 3PM Discontinued Reason: Patient Completed Course 100 mg PO BID 90 days 180 caps 0RF M51.36 - Other intervertebral disc degeneration, lumbar region, M54.31 - Sciatica, right side Coding Level of Care Code Est Pt Level 4 (20969) Diagnoses Type 2 diabetes mellitus without complication, without long-term current use of insulin E11.9 Diabetes mellitus type: type 2 Diabetes mellitus jail insulin use: without termite control representative use Diabetes mellitus complication status: without complication COPD (chronic obstructive pulmonary disease) J44.9 Mixed hyperlipidemia E78.2 Mild recurrent major depression F33.0 Essential hypertension I10 Other spondylosis with radiculopathy, lumbar region M47.26 Additional Codes FUNMILAYO-7 Assessment Billing - FUNMILAYO-7 Assessment Tool: FUNMILAYO-7 Assessment 29473 ([id number]) Time Spent (min) 23
[2023-09-27 16:20] VITALS: BP 138/84; BMI 38.9
== END 2023-09-27 16:44 | disposition home or self-care (01) ==
PROVIDERS: PCP Internal Medicine; Visit Provider Internal Medicine
DX: E11.9 Type 2 diabetes mellitus without complications (principal); I10 Essential (primary) hypertension; J44.9 Chronic obstructive pulmonary disease, unspecified; F33.0 Major depressive disorder, recurrent, mild; M47.26 Other spondylosis with radiculopathy, lumbar region
CPT/HCPCS: 83036; 99214

== ENCOUNTER 2023-10-04 10:55 | Outpatient (AMB) | payer OTHER, SELFPAY ==
[2023-10-04 11:27] VITALS: BP 110/90; PULSE 82; O2SAT 96; BMI 39.8
--- NOTE | 2023-10-04 11:27 | MHC.OFFVIS ---
Intake Vital Signs 10/04/23 11:27 Height 5 ft 6 in Weight 246 lb 14.684 oz BMI 39.8 BP 110/90 H Blood Pressure Location Lt brachial Position Sitting Pulse 82 Pulse Source Pulse Oximeter Pulse Oximetry (%) 96 Oxygen Delivery Method Room Air Intake Visit Reasons: Asthma Intake Note: pt is here for follow up and states he is doing well besides his back pain. 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 Required: No Allergies metal Allergy (Intermediate, Uncoded 10/04/23 11:44) Rash Medication List - Last Reconciled 10/04/23 by Bobby Ralph MD acetaminophen 1,000 mg (2 x 500 mg) PO Q6H PRN 30 days amlodipine 10 mg PO DAILY 90 days atorvastatin 80 mg PO BEDTIME 90 days blood sugar diagnostic (FreeStyle Lite Strips) Use 1 test strip once a day blood-glucose meter (FreeStyle Lite Meter kit) As directed bupropion HCl 150 mg PO QAM docusate sodium 100 mg PO BEDTIME ergocalciferol (vitamin D2) 1,250 mcg PO QWEEK 90 days gabapentin 300 mg PO BID 30 days gabapentin 400 mg PO BEDTIME 90 days hydrocortisone 2.5% (Anusol-HC) 1 appl SD BID-QID PRN hydroxyzine pamoate 25 mg PO TID lancets (FreeStyle Lancets) Use 1 lancet once a day lisinopril 40 mg PO DAILY 90 days metformin 1,000 mg PO BID 90 days mirtazapine 45 mg PO DAILY omeprazole 40 mg PO QAM pyridoxine (vitamin B6) 100 mg PO DAILY 90 days sennosides (senna) 17.2 mg (2 x 8.6 mg) PO BEDTIME sertraline 100 mg PO DAILY Ventolin HFA 90 mcg/actuation (albuterol sulfate) 2 puffs inhalation Q4-6H PRN 30 days NS Do you need a note to return to daycare/school/sports/work: No HPI Asthma HPI Details This 48 years old gentleman grossly obese, has mild degree of obstructive, sleep apnea and also mild bronchial asthma. He is back . For 6 months follow-up He has not lost much weight. He claims that he sleeps good and there is no issue of frequent awakenings. Breathing mccloud he has mild intermittent bronchial asthma but it seems to be well controlled that this time and he has hardly needed to use Ventolin. He has had no recent respiratory infections He is cutting down on a cigarettes and is down to 2 cigarettes a day. [facility] Medical History (Updated 10/04/23 @ 12:15 by Bobby Ralph MD) Morbid obesity due to excess calories Family history of pancreatic cancer Diabetes mellitus Dyspnea on exertion Somnolence, daytime Loud snoring COPD (chronic obstructive pulmonary disease) Smoker RADHA (obstructive sleep apnea) Mixed hyperlipidemia Bleeding hemorrhoid Mild recurrent major depression Wheezing Moderately severe major depression Renal calculi Chronic pain syndrome Right sided sciatica Depression GERD (gastroesophageal reflux disease) Morbid obesity Impaired glucose tolerance Dyslipidemia Essential hypertension Disc degeneration, lumbar Other spondylosis with radiculopathy, lumbar region Surgical History Hx of colonoscopy History of extraction of renal calculus History of toe surgery History of vasectomy History of appendectomy Family History Father Hypertension Sciatica Mother Stroke Hypertension Diabetes Brother Stroke Pancreatic cancer Family/Other Substance use disorder Social History (Updated 10/04/23 @ 11:32 by Marion Sierra [facility]) Household Members: Family Housing: House Do you presently have visiting nurse or other home services: No Alcohol intake: former Comment: medicated, see MAR Patient Tobacco Use Status: Current everyday Tobacco user Tobacco use type: Cigarette Cigarettes Per Day: 2 Years Smoked: 20 e-Cigarette/Vaping Use: Never Used Second Hand Smoke Exposure: Yes Substance Use Type: Marijuana service: No Current occupational status: unemployed Cognitive needs: Yes (Cane) Hearing needs: No Vision needs: Yes Review of Systems Const All systems reviewed & are unremarkable except as noted in HPI and below Eyes Reports no additional complaints ENT Denies nasal congestion and Denies nasal discharge Card Denies chest pain, Denies irregular heart rhythm and Denies leg edema Resp Reports as per HPI GI Reports constipation and Reports heartburn Reports no additional complaints Musc Reports back pain Skin/Breast Reports system reviewed and no additional complaints, except as documented Neuro Reports no additional complaints and Reports radicular pain Psych Reports depression (Has had major depression a few times) Endo Reports other (Has borderline diabetes mellitus and hyperlipidemia) Physical Exam Vital Signs: Last Vital Signs Pulse 82 10/04/23 11:27 BP 110/90 H 10/04/23 11:27 Pulse Ox 96 10/04/23 11:27 Oxygen Delivery Method Room Air 10/04/23 11:27 BMI result Body Mass Index 39.8 Const Other: He is grossly overweight General: comfortable, no acute distress, alert and awake Orientation/consciousness: patient oriented x3 HEENT Head: Yes normal to inspection General nose exam: No nasal polyps present and No nasal discharge present Face and sinus: Yes sinuses nontender Mouth: oropharynx abnormals (Oropharynx is crowded and narrow, Mallampati class 4) Throat: Yes posterior oropharynx normal Eyes General: appearance normal, both eyes and all related structures Neck Neck: Yes normal visual inspection, Yes no lymphadenopathy, Yes trachea midline, Yes no JVD and Yes other (Neck circumference 17-1/2 inch) Thyroid: Thyroid normal Chest Chest palpation & inspection: normal inspection of the chest, normal palpation of entire chest wall and no tenderness Resp Effort & Inspection: normal respiratory effort Auscultation: clear to auscultation bilaterally, no crackles, no rhonchi and no wheezes Cardio Palpation: normal PMI Rate: regular rate Rhythm: regular rhythm Heart sounds: no gallops and no murmurs Peripheral pulses: Peripheral pulses 2+ throughout GI Palpation (GI): Soft to palpation, Tenderness to palpation present (GI), No hepatosplenomegaly present, Palpable mass present and Other GI palpation findings present (Abdomen is moderately obese and protuberant) Auscultation: normal bowel sounds Back/Spine/Pelvis Thoracic/Lumbar Spine: thoracic and lumbar spine normal to inspection, thoraco-lumbar ROM limited and thoraco-lumbar spasm Skin General skin exam: no rashes or lesions noted Neuro General: patient oriented x3, No gait normal (Slightly impaired due to back pain, uses cane) and no focal motor deficits Cranial nerves: Yes CN's II-XII intact bilaterally Extrem General: Yes normal to inspection, Yes no clubbing, cyanosis or edema and Yes no calf tenderness Psych Mental Status: mental status grossly normal Speech and movement: Normal speech and movement present Assessment & Plan Assessment & Plan (1) Smoker: Comment: History of longstanding smoking but trying to cut down , currently smoking only 2 cigarettes a day. Code(s): F17.200 - Nicotine dependence, unspecified, uncomplicated Plan: He is commended for cutting down the smoking and is encouraged to quit completely. (2) RADHA (obstructive sleep apnea): Comment: PER SLEEP STUDY HE HAS ONLY MILD OBSTRUCTIVE SLEEP APNEA . WE ARE TRYING TO TREAT HIM WITH CONSERVATIVE MEASURES INCLUDING WEIGHT REDUCTION AND ALSO POSITION THERAPY. HE SEEMS TO BE DOING WELL AND AT PRESENT DOES NOT HAVE ANY SIGNIFICANT SYMPTOMS OF RADHA. Code(s): G47.33 - Obstructive sleep apnea (adult) (pediatric) Plan: Advised to continue losing some weight and also always sleep in lateral position. (3) COPD (chronic obstructive pulmonary disease): Comment: Because of his history of smoking for many years, history of intermittent cough and wheeze, he is at risk of chronic obstructive pulmonary disease. PULMONARY FUNCTION TEST DID NOT SHOW ANY SIGNIFICANT ASTHMA OBSTRUCTIVE AIRWAY DISORDER. has not been done . RESCEDULED Code(s): J44.9 - Chronic obstructive pulmonary disease, unspecified Plan: USE VENTOLIN 2 PUFFS Q 6 HOURS ONLY P.R.N. Quality Reporting (2019) Adult ([facility] 138/10/19/68) Smoking risk assessment performed?: Yes Patient Tobacco Use Status: Current everyday Tobacco user Coding Level of Care Code Est Pt Level 3 (37891) Diagnoses Smoker F17.200 RADHA (obstructive sleep apnea) G47.33 COPD (chronic obstructive pulmonary disease) J44.9
== END 2023-10-04 11:51 | disposition home or self-care (01) ==
PROVIDERS: PCP Internal Medicine; Visit Provider Internal Medicine
DX: F17.200 Nicotine dependence, unspecified, uncomplicated (principal); G47.33 Obstructive sleep apnea (adult) (pediatric); J44.9 Chronic obstructive pulmonary disease, unspecified
CPT/HCPCS: 99213

== ENCOUNTER → 2023-10-04 10:55 | Outpatient (BNVA) | payer OTHER, SELFPAY | PROVIDERS: PCP Internal Medicine; Visit Provider Internal Medicine | DX: J44.9 Chronic obstructive pulmonary disease, unspecified (principal); G47.33 Obstructive sleep apnea (adult) (pediatric); F17.210 Nicotine dependence, cigarettes, uncomplicated | CPT/HCPCS: 99212 ==

== ENCOUNTER 2024-01-12 08:51 | Outpatient (AMB) | payer OTHER, SELFPAY ==
--- NOTE | 2024-01-12 08:56 | A.OFFVIS_ITS ---
Vital Signs 01/12/24 09:00 Height 5 ft 6 in Weight 230 lb BMI 37.1 BP 120/72 Blood Pressure Location Lt brachial Position Sitting Pulse 94 Intake Visit Reasons: 1 yr follow up Intake Note: Patient yearly follow up for Constipation Patient cc: N/V on and off, abdominal bloating with some abdominal pain, GERD with burning. 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 Staying upright for a minimum 3 hours after meals discussed with patient. Constipation Patient was encouraged to take Citrucel and Colace. Discussed with him that straining will cause his hemorrhoids bleed. I will see patient in 1 year, sooner on as needed basis. Patient is agreeable to this plan and verbalizes understanding of instructions. He was given the opportunity to ask questions and all questions answered. ? Thank you for allowing me to participate in his care Plan Medications Refilled methylcellulose (laxative) (Citrucel) 500 mg PO DAILY 90 tabs 2RF K59.00 - Constipation, unspecified docusate sodium 100 mg PO BEDTIME 90 caps 3RF K59.00 - Constipation, unspecified TODAY'S VISIT Patient is here today for follow-up. Patient reports that he has been doing fairly well. Patient states that she lost lot of weight due to change in his diet. He reports occasional nausea specially in the morning. Patient states that omeprazole works for him for the most part. Patient reports that he is moving his bowels well and uses senna on as needed basis. Patient denies any melena, hematochezia, unintentional weight loss or ribbon like stools. Patient denies dyspepsia, dysphagia or odynophagia [facility] Medical History (Updated 10/04/23 @ 12:15 by Bobby Ralph MD) Morbid obesity due to excess calories Family history of pancreatic cancer Diabetes mellitus Dyspnea on exertion Somnolence, daytime Loud snoring COPD (chronic obstructive pulmonary disease) Smoker RADHA (obstructive sleep apnea) Mixed hyperlipidemia Bleeding hemorrhoid Mild recurrent major depression Wheezing Moderately severe major depression Renal calculi Chronic pain syndrome Right sided sciatica Depression GERD (gastroesophageal reflux disease) Morbid obesity Impaired glucose tolerance Dyslipidemia Essential hypertension Disc degeneration, lumbar Other spondylosis with radiculopathy, lumbar region Surgical History Hx of colonoscopy History of extraction of renal calculus History of toe surgery History of vasectomy History of appendectomy Family History Father Hypertension Sciatica Mother Stroke Hypertension Diabetes Brother Stroke Pancreatic cancer Family/Other Substance use disorder Social History Household Members: Family Housing: House Do you presently have visiting nurse or other home services: No Alcohol intake: former Comment: medicated, see MAR Patient Tobacco Use Status: Current everyday Tobacco user Tobacco use type: Cigarette Cigarettes Per Day: 2 Years Smoked: 20 e-Cigarette/Vaping Use: Never Used Second Hand Smoke Exposure: Yes Substance Use Type: Marijuana service: No Current occupational status: unemployed Cognitive needs: Yes (Cane) Hearing needs: No Vision needs: Yes Review of Systems Const Denies weight gain and Denies weight loss ENT Reports no additional complaints, Denies dysphagia and Denies odynophagia Card Reports no additional complaints Resp Reports no additional complaints GI Denies abdominal pain, Denies belching, Denies melena, Denies bloating, Denies change in bowel habits, Denies dysphagia, Denies excessive flatus, Denies dyspepsia, Denies heartburn, Denies diarrhea, Denies loose stools, Denies nausea, Denies odynophagia and Denies vomiting Reports no additional complaints Musc Reports no additional complaints Neuro Reports no additional complaints Psych Reports no additional complaints Endo Reports no additional complaints Physical Exam Vital Signs: Last Vital Signs Pulse 94 01/12/24 09:00 BP 120/72 01/12/24 09:00 BMI result Body Mass Index 37.1 Const General: healthy appearing and no acute distress Nutritional Appearance: obese Orientation/consciousness: patient oriented x3 Resp Effort & Inspection: normal respiratory effort, able to speak in complete se ntences, no tracheal deviation and symmetric chest movement Auscultation: clear to auscultation bilaterally Cardio Rate: regular rate GI Inspection: Yes normal to inspection, No distended and Yes obesity Palpation (GI): Soft to palpation, not firm, nontender and No hepatosplenomegaly present Auscultation: normal bowel sounds General: Yes no CVA tenderness Back/Spine/Pelvis Back: no CVA tenderness Skin General skin exam: elasticity normal, turgor normal and dry skin Neuro General: patient oriented x3 Psych Appearance: grossly normal Mental Status: mental status grossly normal Quality Reporting (2019) Adult ([facility] 13810/19/68) Smoking risk assessment performed?: Yes Patient Tobacco Use Status: Current everyday Tobacco user Assessment & Plan Assessment & Plan (1) GERD (gastroesophageal reflux disease): Code(s): K21.9 - Gastro-esophageal reflux disease without esophagitis Category: Medical Qualifiers: Esophagitis presence: esophagitis presence not specified Qualified Code(s): K21.9 - Gastro-esophageal reflux disease without esophagitis (2) Constipation: Code(s): K59.00 - Constipation, unspecified Qualifiers: Constipation type: slow transit constipation Qualified Code(s): K59.01 - Slow transit constipation Plan Patient will continue taking senna on as-needed basis. Increase fluid intake and activity to promote better bowel motility. Patient was encouraged to avoid dietary triggers and late night snacking. Staying upright for minimum 3 hours after meals discussed with patient. Patient will start taking famotidine at bedtime. Continue taking omeprazole daily. Patient will return for follow-up in 6 months, sooner on as needed basis. He is agreeable to this plan and verbalizes understanding of instructions. He was given the opportunity to ask questions and all questions answered. Thank you for allowing me to participate in his care Medications: New famotidine (Pepcid) 20 mg PO BEDTIME 30 tabs 3RF K21.9 - Gastro-esophageal reflux disease without esophagitis Coding Level of Care Code Est Pt Level 3 (28273) Diagnoses Gastroesophageal reflux disease, unspecified whether esophagitis present K21.9 Esophagitis presence: esophagitis presence not specified Slow transit constipation K59.01 Constipation type: slow transit constipation Time Spent (min) 30 Comment 20 minutes spent with patient and additional 10 minutes spent reviewing his records
[2024-01-12 09:00] VITALS: BP 120/72; PULSE 94; BMI 37.1
== END 2024-01-12 09:19 | disposition home or self-care (01) ==
PROVIDERS: Visit Provider Nurse Practitioner Family
DX: K21.9 Gastro-esophageal reflux disease without esophagitis (principal); K59.01 Slow transit constipation
CPT/HCPCS: 99213

== ENCOUNTER → 2024-01-12 08:51 | Outpatient (BNVA) | payer OTHER, SELFPAY | PROVIDERS: Visit Provider Nurse Practitioner Family | DX: K21.9 Gastro-esophageal reflux disease without esophagitis (principal); K59.01 Slow transit constipation | CPT/HCPCS: 99212 ==

== ENCOUNTER 2024-01-15 09:06 | Outpatient (AMB) | payer OTHER, SELFPAY ==
[2024-01-15 09:09] VITALS: BP 130/86; BMI 38.9
--- NOTE | 2024-01-15 09:09 | MHC.PC.OV ---
Vital Signs 01/15/24 09:09 Height 5 ft 6 in Weight 241 lb BMI 38.9 BP 130/86 Blood Pressure Location Lt brachial Position Sitting Intake Visit Reasons: Annual Exam Intake Note: Patient here for an annual physical exam Dental Tech Required: No Accompanied by: Self / Same As Patient Allergies metal Allergy (Intermediate, Uncoded 01/15/24 09:31) Rash Medication List - Last Reconciled 01/15/24 by Lucia Severino MD acetaminophen 1,000 mg (2 x 500 mg) PO Q6H PRN 30 days amlodipine 10 mg PO DAILY 90 days atorvastatin 80 mg PO BEDTIME 90 days blood sugar diagnostic (FreeStyle Lite Strips) Use 1 test strip once a day blood-glucose meter (FreeStyle Lite Meter kit) As directed bupropion HCl XL 150 mg PO QAM docusate sodium 100 mg PO BEDTIME ergocalciferol (vitamin D2) 1,250 mcg PO QWEEK 90 days famotidine (Pepcid) 20 mg PO BEDTIME gabapentin 300 mg PO BID 30 days gabapentin 400 mg PO BEDTIME 90 days hydrocortisone 2.5% (Anusol-HC) 1 appl [place] BID-QID PRN hydroxyzine pamoate 25 mg PO TID lancets (FreeStyle Lancets) Use 1 lancet once a day lisinopril 40 mg PO DAILY 90 days metformin 1,000 mg PO BID 90 days mirtazapine 45 mg PO DAILY omeprazole 40 mg PO QAM pyridoxine (vitamin B6) 100 mg PO DAILY 90 days sennosides (senna) 17.2 mg (2 x 8.6 mg) PO BEDTIME sertraline 100 mg PO DAILY Ventolin HFA 90 mcg/actuation (albuterol sulfate) 2 puffs inhalation Q4-6H PRN 30 days NS Tobacco use date assessed: 09/27/23 Dental Screening Dental Screen Date: 09/27/23 HPI HPI Comments History of Present Illness Details This is a 48-year-old male with mild recurrent major depression, diabetes mellitus type 2 and COPD that comes for his physical exam. Depression stable with sertraline and bupropion. A1c within goal. Has wheezing at the moment and requires rescue inhaler few times a week. I will add Breo. He was advised to quit smoking. Last colonoscopy was 2022. Last diabetic eye exam was few months ago. Walks with a cane for gait stability. COUNTS INCLUDE 234 BEDS AT THE [facility] Medical History (Updated 01/15/24 @ 09:48 by Lucia Severino MD) Morbid obesity due to excess calories Family history of pancreatic cancer Diabetes mellitus Dyspnea on exertion Somnolence, daytime Loud snoring COPD (chronic obstructive pulmonary disease) Smoker RADHA (obstructive sleep apnea) Mixed hyperlipidemia Bleeding hemorrhoid Mild recurrent major depression Wheezing Moderately severe major depression Renal calculi Chronic pain syndrome Right sided sciatica Depression GERD (gastroesophageal reflux disease) Morbid obesity Impaired glucose tolerance Dyslipidemia Essential hypertension Disc degeneration, lumbar Other spondylosis with radiculopathy, lumbar region Surgical History Hx of colonoscopy History of extraction of renal calculus History of toe surgery History of vasectomy History of appendectomy Family History Father Hypertension Sciatica Mother Stroke Hypertension Diabetes Brother Stroke Pancreatic cancer Family/Other Substance use disorder Social History (Updated 01/15/24 @ 09:37 by Lucia Severino MD) Household Members: Family Housing: House Do you presently have visiting nurse or other home services: No Alcohol intake: former Comment: medicated, see MAR Patient Tobacco Use Status: Current everyday Tobacco user Tobacco use type: Cigarette Cigarettes Per Day: 1 Years Smoked: 20 e-Cigarette/Vaping Use: Never Used Second Hand Smoke Exposure: Yes Substance Use Type: Marijuana service: No Current occupational status: unemployed Cognitive needs: Yes (Cane) Hearing needs: No Vision needs: Yes Questionnaire Thrive Questionnaire Date Thrive assessed: 09/27/23 FUNMILAYO-7 AMB Questionnaire FUNMILAYO-7 Date FUNMILAYO - 7 assessed: 09/27/23 Source: Developed by Drs. Montana Dubose, Jaleesa White, Cruz Coats and colleagues, with an educational nelda from [employer]. Review of Systems Const All systems reviewed & are unremarkable except as noted in HPI and below Eyes Reports no additional complaints, Denies change in vision and Denies other visual disturbances Card Denies chest pain at rest, Denies chest pain with activity, Denies edema, Denies irregular heart rhythm, Denies claudication, Denies dyspnea, Denies dyspnea on exertion, Denies orthopnea, Denies paroxysmal nocturnal dyspnea and Denies slow heart rate Resp Denies cough, Denies dyspnea and Denies dyspnea on exertion GI Denies abdominal pain, Denies change in bowel habits, Denies excessive flatus, Denies nausea and Denies vomiting Denies urinary hesitancy, Denies urinary incontinence and Denies urinary urgency Musc Reports back pain and Reports arthralgias Physical exam (Primary Care) Vital Signs: Last Vital Signs BP 130/86 01/15/24 09:09 BMI result Body Mass Index 38.9 BMI Assessment/Plan discussion: High BMI High, discussed plan: lifestyle, weight reduction, dietary and physical activity Tobacco/Smoking Status: Tobacco use Status Tobacco use date assessed 09/27/23 01/15/24 09:14 Patient Tobacco Use Status Current everyday Tobacco 01/15/24 09:14 Tobacco use type Cigarette 01/15/24 09:14 e-Cigarette/Vaping Use Never Used 01/15/24 09:14 Are you ready to quit: Yes Tobacco cessation counseling provided: Yes Items discussed: QuitWorks Relapse Prevention: discussed the importance of a supportive environment, discussed extending NRT, discussed negative mood or depression after quitting, weight gain after smoking is common and discussed dietary, exercise and/or lifestyle changes Number of minutes spent counselin CPT code: Less than 3 minutes Thrive Assessment: Date of Thrive Assessment Date Thrive assessed 09/27/23 01/15/24 09:14 Const Nutritional Appearance: obese Orientation/consciousness: patient oriented x3 Limitations: ambulation with cane HENMT Head: Yes normal to inspection, Yes normocephalic and Yes atraumatic Ears: external ears normal Eyes General: appearance normal, both eyes and all related structures Eyelids: Yes eyelids normal Conjunctivae: conjunctivae normal Neck Neck: Yes normal visual inspection and Yes supple Resp Effort & Inspection: normal respiratory effort Auscultation: wheezes scattered wheezes Cardio Jugular venous distension: no JVD Rate: regular rate Rhythm: regular rhythm Heart sounds: S1 normal heart sound present and S2 normal heart sound present GI Inspection: Yes normal to inspection Palpation (GI): Soft to palpation and nontender Auscultation: normal bowel sounds Skin General skin exam: no rashes or lesions noted Neuro General: patient oriented x3 and no focal motor deficits Extrem General: Yes full ROM Psych Appearance: grossly normal Results AMB Hemoglobin A1c AMB Hemoglobin A1c 6.0 % Last Edit by BRANDON Henderson on 01/15/24 09:24 Results Reviewed Results Reviewed: Laboratory Last Values Hgb A1c (Clinic) 6.0 % (4.0-6.0) 01/15/24 09:17 Assessment and Plan Assessment & Plan (1) Physical exam: Code(s): Z00.00 - Encounter for general adult medical examination without abnormal findings Plan: Repeat in a year. (2) Diabetes mellitus: Code(s): E11.9 - Type 2 diabetes mellitus without complications Qualifiers: Diabetes mellitus type: type 2 Diabetes mellitus chcf insulin use: without terminal make up operator use Diabetes mellitus complication status: without complication Qualified Code(s): E11.9 - Type 2 diabetes mellitus without complications Plan: Continue metformin. Start Ozempic. A1c goal is equal or less than 7%. (3) COPD (chronic obstructive pulmonary disease): Comment: Because of his history of smoking for many years, history of intermittent cough and wheeze, he is at risk of chronic obstructive pulmonary disease. PULMONARY FUNCTION TEST DID NOT SHOW ANY SIGNIFICANT ASTHMA OBSTRUCTIVE AIRWAY DISORDER. has not been done . RESCEDULED Code(s): J44.9 - Chronic obstructive pulmonary disease, unspecified Plan: Start Breo. Follow-up with pulmonology. Use rescue inhaler as needed. (4) Mild recurrent major depression: Code(s): F33.0 - Major depressive disorder, recurrent, mild Plan: Continue sertraline and bupropion. Orders: Orders Lipid Panel Today E78.5 - Hyperlipidemia, unspecified Vitamin D 25-OH Total Today E55.9 - Vitamin D deficiency, unspecified Comprehensive [place]. Panel Fast Today Z00.00 - Encounter for general adult medical examination without abnormal findings AMB Hemoglobin A1c Today E11.9 - Type 2 diabetes mellitus without complications Microalbumin, Random (w Creat) Today E11.9 - Type 2 diabetes mellitus without complications Vitamin B12 and Folate Today E53.8 - Deficiency of other specified B group vitamins Medications: New fluticasone furoate-vilanterol 100-25 mcg/dose (Breo Ellipta) 1 inh inhalation DAILY 60 days 60 ea 6RF J44.9 - Chronic obstructive pulmonary disease, unspecified semaglutide (Ozempic) for 4 weeks 0.25 mg (0.368 mL) subcut QWEEK 4 weeks 1.472 mL 0RF E11.9 - Type 2 diabetes mellitus without complications Coding Level of Care Code Est Pt Prev Care 40-64y(31083) Diagnoses Physical exam Z00.00 Type 2 diabetes mellitus without complication, without long-term current use of insulin E11.9 Diabetes mellitus type: type 2 Diabetes mellitus terminal make up operator insulin use: without chcf use Diabetes mellitus complication status: without complication COPD (chronic obstructive pulmonary disease) J44.9 Mild recurrent major depression F33.0 Time Spent (min) 35
== END 2024-01-15 09:43 | disposition home or self-care (01) ==
PROVIDERS: Visit Provider Internal Medicine
DX: Z00.00 Encounter for general adult medical examination without abnormal findings (principal); E11.9 Type 2 diabetes mellitus without complications; J44.9 Chronic obstructive pulmonary disease, unspecified; F33.0 Major depressive disorder, recurrent, mild; F17.210 Nicotine dependence, cigarettes, uncomplicated
CPT/HCPCS: 83036; 99396

== ENCOUNTER 2024-03-28 09:54 | Outpatient (REF) | payer OTHER, SELFPAY ==
--- NOTE | ~2024-03-28 | US_ITS ---
EXAMINATION: US RETROPERITONEAL LIMITED (RENAL ONLY) CLINICAL INFORMATION: Personal history of urinary calculi. COMPARISON: Renal ultrasound 02/09/2023 and 01/03/2022. MRI abdomen 03/25/2022. X-ray abdomen KUB 04/13/2021. CT abdomen and pelvis 04/04/2021. TECHNIQUE: Real-time imaging of the kidneys. Limited visualization due to bowel gas and body habitus. FINDINGS: RIGHT KIDNEY: 11.1 x 5.7 x 5.8 cm (SAG x AP x TRV). No hydronephrosis. No renal calculi. Renal cortical thickness is normal. Limited visualization. LEFT KIDNEY: 11.8 x 6.4 x 4.4 cm (SAG x AP x TRV). No hydronephrosis. No renal calculi. Renal cortical thickness is normal. Limited visualization. US/US renal BI IMPRESSION: No hydronephrosis. No renal calculi.
== END 2024-03-28 09:55 | disposition home or self-care (01) ==
LOC: HO.US 09:54
PROVIDERS: PCP Internal Medicine; Visit Provider Urology
DX: Z87.442 Personal history of urinary calculi (principal)
CPT/HCPCS: 76775

== ENCOUNTER 2024-04-10 11:07 | Outpatient (AMB) | payer OTHER, SELFPAY ==
[2024-04-10 11:12] VITALS: BP 102/70; PULSE 78; O2SAT 97; BMI 38.1
--- NOTE | 2024-04-10 11:12 | A.OFFVIS_ITS ---
Vital Signs 04/10/24 11:12 Height 5 ft 6 in Weight 235 lb 14.314 oz BMI 38.1 BP 102/70 Blood Pressure Location Lt brachial Position Sitting Pulse 78 Pulse Source Pulse Oximeter Pulse Oximetry (%) 97 Oxygen Delivery Method Room Air Intake Visit Reasons: asthma Allergies metal Allergy (Intermediate, Uncoded 04/10/24 11:16) Rash Medication List - Last Reconciled 04/10/24 by Arlin Pace acetaminophen 1,000 mg (2 x 500 mg) PO Q6H PRN 30 days amlodipine 10 mg PO DAILY 90 days atorvastatin 80 mg PO BEDTIME 90 days blood sugar diagnostic (FreeStyle Lite Strips) Use 1 test strip once a day blood-glucose meter (FreeStyle Lite Meter kit) As directed bupropion HCl XL 150 mg PO QAM docusate sodium 100 mg PO BEDTIME ergocalciferol (vitamin D2) 1,250 mcg PO QWEEK 90 days famotidine (Pepcid) 20 mg PO BEDTIME fluticasone furoate-vilanterol 100-25 mcg/dose (Breo Ellipta) 1 inh inhalation DAILY 60 days gabapentin 300 mg PO BID 30 days gabapentin 400 mg PO BEDTIME 90 days hydrocortisone 2.5% (Anusol-HC) 1 appl [place] BID-QID PRN hydroxyzine pamoate 25 mg PO TID lancets (FreeStyle Lancets) Use 1 lancet once a day lisinopril 40 mg PO DAILY 90 days metformin 1,000 mg PO BID 90 days mirtazapine 45 mg PO DAILY omeprazole 40 mg PO QAM pyridoxine (vitamin B6) 100 mg PO DAILY 90 days sennosides (senna) 17.2 mg (2 x 8.6 mg) PO BEDTIME sertraline 100 mg PO DAILY Ventolin HFA 90 mcg/actuation (albuterol sulfate) 2 puffs inhalation Q4-6H PRN 30 days NS [walker As directed] walker with seat and wheels Do you need a note to return to daycare/school/sports/work: No HPI HPI asthma: Details: Jose is 49 years old gentleman grossly obese, has obstructive sleep apnea but very mild and he is trying to treated with weight reduction and position therapy. He say is he sleeps very well and does not have any significant problem, at th.is time He denies daytime sleepiness. Trying to lose weight slowly and has lost about 11 lb in the last 6 months. Breathing has been stable , without any acute attacks. he had to use the rescue inhaler only once or twice in the last 6 months. Smoking is down to about 2 cigarettes a day. he plans to quit completely . [facility] Medical History Morbid obesity due to excess calories Family history of pancreatic cancer Diabetes mellitus Dyspnea on exertion Somnolence, daytime Loud snoring COPD (chronic obstructive pulmonary disease) Smoker RADHA (obstructive sleep apnea) Mixed hyperlipidemia Bleeding hemorrhoid Mild recurrent major depression Wheezing Moderately severe major depression Renal calculi Chronic pain syndrome Right sided sciatica Depression GERD (gastroesophageal reflux disease) Morbid obesity Impaired glucose tolerance Dyslipidemia Essential hypertension Disc degeneration, lumbar Other spondylosis with radiculopathy, lumbar region Surgical History Hx of colonoscopy History of extraction of renal calculus History of toe surgery History of vasectomy History of appendectomy Family History Father Hypertension Sciatica Mother Stroke Hypertension Diabetes Brother Stroke Pancreatic cancer Family/Other Substance use disorder Social History Household Members: Family Housing: House Do you presently have visiting nurse or other home services: No Alcohol intake: former Comment: medicated, see MAR Patient Tobacco Use Status: Current everyday Tobacco user Tobacco use type: Cigarette Cigarettes Per Day: 1 Years Smoked: 20 e-Cigarette/Vaping Use: Never Used Second Hand Smoke Exposure: Yes Substance Use Type: Marijuana service: No Current occupational status: unemployed Cognitive needs: Yes (Cane) Hearing needs: No Vision needs: Yes Review of Systems Const All systems reviewed & are unremarkable except as noted in HPI and below Eyes Reports no additional complaints ENT Denies nasal congestion and Denies nasal discharge Card Denies chest pain, Denies irregular heart rhythm and Denies leg edema Resp Reports as per HPI GI Reports constipation and Reports heartburn Reports no additional complaints Musc Reports back pain Skin/Breast Reports system reviewed and no additional complaints, except as documented Neuro Reports no additional complaints and Reports radicular pain Psych Reports depression (Has had major depression a few times) Endo Reports other (Has borderline diabetes mellitus and hyperlipidemia) Physical Exam Vital Signs: Last Vital Signs Pulse 78 04/10/24 11:12 BP 102/70 04/10/24 11:12 Pulse Ox 97 04/10/24 11:12 Oxygen Delivery Method Room Air 04/10/24 11:12 BMI result Body Mass Index 38.1 Const Other: He is grossly overweight General: comfortable, no acute distress, alert and awake Orientation/consciousness: patient oriented x3 HEENT Head: Yes normal to inspection General nose exam: No nasal polyps present and No nasal discharge present Face and sinus: Yes sinuses nontender Mouth: oropharynx abnormals (Oropharynx is crowded and narrow, Mallampati class 4) Throat: Yes posterior oropharynx normal Eyes General: appearance normal, both eyes and all related structures Neck Neck: Yes normal visual inspection, Yes no lymphadenopathy, Yes trachea midline, Yes no JVD and Yes other (Neck circumference 17-1/2 inch) Thyroid: Thyroid normal Chest Chest palpation & inspection: normal inspection of the chest, normal palpation of entire chest wall and no tenderness Resp Effort & Inspection: normal respiratory effort Auscultation: clear to auscultation bilaterally, no crackles, no rhonchi and no wheezes Cardio Palpation: normal PMI Rate: regular rate Rhythm: regular rhythm Heart sounds: no gallops and no murmurs Peripheral pulses: Peripheral pulses 2+ throughout GI Palpation (GI): Soft to palpation, Tenderness to palpation present (GI), No hepatosplenomegaly present, Palpable mass present and Other GI palpation findings present (Abdomen is moderately obese and protuberant) Auscultation: normal bowel sounds Back/Spine/Pelvis Thoracic/Lumbar Spine: thoracic and lumbar spine normal to inspection, thoraco- lumbar ROM limited and thoraco-lumbar spasm Skin General skin exam: no rashes or lesions noted Neuro General: patient oriented x3, No gait normal (Slightly impaired due to back pain, uses cane) and no focal motor deficits Cranial nerves: Yes CN's II-XII intact bilaterally Extrem General: Yes normal to inspection, Yes no clubbing, cyanosis or edema and Yes no calf tenderness Psych Mental Status: mental status grossly normal Speech and movement: Normal speech and movement present Quality Reporting (2019) Adult ([facility] 138/2/) Smoking risk assessment performed?: Yes Patient Tobacco Use Status: Current everyday Tobacco user Assessment & Plan Assessment & Plan (1) Asthma: Comment: HE HAS MILD INTERMITTENT WHEEZING, PROBABLY RELATED TO HIS BEING OVERWEIGHT AND ALSO DUE TO SMOKING. PULMONARY FUNCTION TEST WAS ESSENTIALLY NORMAL. HE COULD STILL HAVE A BORDERLINE DEGREE OF REACTIVE AIRWAYS/BRONCHIAL ASTHMA. Code(s): J45.909 - Unspecified asthma, uncomplicated Category: Medical Plan: continue Breo 100-25 1 inhalation daily. Ventolin HFA 2 puffs Q 6 hours only p.r.n. (2) COPD (chronic obstructive pulmonary disease): Comment: Because of his history of smoking for many years, history of intermittent cough and wheeze, he is at risk of chronic obstructive pulmonary disease. PULMONARY FUNCTION TEST DID NOT SHOW ANY SIGNIFICANT ASTHMA OBSTRUCTIVE AIRWAY DISORDER. has not been done . RESCEDULED Code(s): J44.9 - Chronic obstructive pulmonary disease, unspecified Category: Medical Plan: treatment as under ASTHMA (3) Smoker: Comment: History of longstanding smoking but trying to cut down , currently smoking only 2 cigarettes a day. Code(s): F17.200 - Nicotine dependence, unspecified, uncomplicated Category: Social Hx Plan: counseled to quit completely and he seems. to be well motivated (4) RADHA (obstructive sleep apnea): Comment: PER SLEEP STUDY HE HAS ONLY MILD OBSTRUCTIVE SLEEP APNEA . WE ARE TRYING TO TREAT HIM WITH CONSERVATIVE MEASURES INCLUDING WEIGHT REDUCTION AND ALSO POSITION THERAPY. HE SEEMS IS DOING WELL AND AT PRESENT DOES NOT HAVE ANY SIGNIFICANT SYMPTOMS OF RADHA. Code(s): G47.33 - Obstructive sleep apnea (adult) (pediatric) Category: Medical Plan: ADVISED TO KEEP O.N LOSING WEIGHT. ALWAYS SLEEP IN LATERAL POSITION Coding Level of Care Code Est Pt Level 3 (36020) Diagnoses Asthma J45.909 COPD (chronic obstructive pulmonary disease) J44.9 Smoker F17.200 RADHA (obstructive sleep apnea) G47.33
== END 2024-04-10 11:38 | disposition home or self-care (01) ==
PROVIDERS: PCP Internal Medicine; Visit Provider Internal Medicine
DX: J45.909 Unspecified asthma, uncomplicated (principal); J44.9 Chronic obstructive pulmonary disease, unspecified; F17.200 Nicotine dependence, unspecified, uncomplicated; G47.33 Obstructive sleep apnea (adult) (pediatric)
CPT/HCPCS: 99213

== ENCOUNTER → 2024-04-10 11:07 | Outpatient (BNVA) | payer OTHER, SELFPAY | PROVIDERS: PCP Internal Medicine; Visit Provider Internal Medicine | DX: J44.9 Chronic obstructive pulmonary disease, unspecified (principal); E66.09 Other obesity due to excess calories; G47.33 Obstructive sleep apnea (adult) (pediatric); F17.200 Nicotine dependence, unspecified, uncomplicated | CPT/HCPCS: 99212 ==

== ENCOUNTER 2024-04-17 08:45 | Outpatient (AMB) | payer OTHER, SELFPAY ==
--- NOTE | 2024-04-17 08:58 | A.OFFVIS_ITS ---
Vital Signs 04/17/24 09:00 Height 5 ft 6 in Weight 236 lb 5.369 oz BMI 38.1 BP 126/86 Blood Pressure Location Lt brachial Position Sitting Pulse 86 Pulse Source Pulse Oximeter Pulse Oximetry (%) 96 Oxygen Delivery Method Room Air Intake Visit Reasons: 3 months follow up Intake Note: Jose presents in office today for a scheduled 3 mos FUV. CC; Pt reports that they have remained stable since their last visit. Pt denies any new concerns or sx at this time. Pt denies any need for medication refills at this time. Student Services Rep Required: No Allergies metal Allergy (Intermediate, Uncoded 04/17/24 08:59) Rash HPI HPI 3 months follow up: Details: LAST VISIT: GERD (gastroesophageal reflux disease) Constipation Plan Patient will continue taking senna on as-needed basis. Increase fluid intake and activity to promote better bowel motility. Patient was encouraged to avoid dietary triggers and late night snacking. Staying upright for minimum 3 hours after meals discussed with patient. Patient will start taking famotidine at bedtime. Continue taking omeprazole daily. Patient will return for follow-up in 6 months, sooner on as needed basis. He is agreeable to this plan and verbalizes understanding of instructions. He was given the opportunity to ask questions and all questions answered. ? Thank you for allowing me to participate in his care Medications New famotidine (Pepcid) 20 mg PO BEDTIME 30 tabs 3RF K21.9 TODAY'S VISIT: Patient is here today for follow-up. Patient reports that he has been doing well since last visit. Patient reports that his symptoms of acid reflux are suppressed. Currently he is taking omeprazole in the morning and uses famotidine as needed. Patient denies any dyspepsia, dysphagia or odynophagia. Patient denies any melena, hematochezia, unintentional weight loss or ribbon like stools. Patient reports that he is moving his bowels well. Uses Senokot on as needed basis. Patient denies any GI concerning symptoms since last visit. [facility] Medical History Morbid obesity due to excess calories Family history of pancreatic cancer Diabetes mellitus Dyspnea on exertion Somnolence, daytime Loud snoring COPD (chronic obstructive pulmonary disease) Smoker RADHA (obstructive sleep apnea) Mixed hyperlipidemia Bleeding hemorrhoid Mild recurrent major depression Wheezing Moderately severe major depression Renal calculi Chronic pain syndrome Right sided sciatica Depression GERD (gastroesophageal reflux disease) Morbid obesity Impaired glucose tolerance Dyslipidemia Essential hypertension Disc degeneration, lumbar Other spondylosis with radiculopathy, lumbar region Surgical History Hx of colonoscopy History of extraction of renal calculus History of toe surgery History of vasectomy History of appendectomy Family History Father Hypertension Sciatica Mother Stroke Hypertension Diabetes Brother Stroke Pancreatic cancer Family/Other Substance use disorder Social History Household Members: Family Housing: House Do you presently have visiting nurse or other home services: No Alcohol intake: former Comment: medicated, see MAR Patient Tobacco Use Status: Current everyday Tobacco user Tobacco use type: Cigarette Cigarettes Per Day: 1 Years Smoked: 20 e-Cigarette/Vaping Use: Never Used Second Hand Smoke Exposure: Yes Substance Use Type: Marijuana service: No Current occupational status: unemployed Cognitive needs: Yes (Cane) Hearing needs: No Vision needs: Yes Review of Systems Const Denies weight gain and Denies weight loss ENT Reports no additional complaints, Denies dysphagia and Denies odynophagia Card Reports no additional complaints Resp Reports no additional complaints GI Denies abdominal pain, Denies belching, Denies melena, Denies bloating, Denies change in bowel habits, Denies dysphagia, Denies excessive flatus, Denies dyspepsia, Denies heartburn, Denies diarrhea, Denies loose stools, Denies nausea, Denies odynophagia and Denies vomiting Reports no additional complaints Musc Reports no additional complaints Neuro Reports no additional complaints Psych Reports no additional complaints Endo Reports no additional complaints Physical Exam Vital Signs: Last Vital Signs Pulse 86 04/17/24 09:00 BP 126/86 04/17/24 09:00 Pulse Ox 96 04/17/24 09:00 Oxygen Delivery Method Room Air 04/17/24 09:00 BMI result Body Mass Index 38.1 Const General: healthy appearing and no acute distress Nutritional Appearance: obese Orientation/consciousness: patient oriented x3 Resp Effort & Inspection: normal respiratory effort, able to speak in complete sentences, no tracheal deviation and symmetric chest movement Auscultation: clear to auscultation bilaterally Cardio Rate: regular rate GI Inspection: Yes normal to inspection, No distended and Yes obesity Palpation (GI): Soft to palpation, not firm, nontender and No hepatosplenomegaly present Auscultation: normal bowel sounds General: Yes no CVA tenderness Back/Spine/Pelvis Back: no CVA tenderness Skin General skin exam: elasticity normal, turgor normal and dry skin Neuro General: patient oriented x3 Psych Appearance: grossly normal Mental Status: mental status grossly normal Quality Reporting (2019) Adult ([facility] 138/10/19/68) Smoking risk assessment performed?: Yes Patient Tobacco Use Status: Current everyday Tobacco user Assessment & Plan Assessment & Plan (1) GERD (gastroesophageal reflux disease): Code(s): K21.9 - Gastro-esophageal reflux disease without esophagitis Category: Medical Qualifiers: Esophagitis presence: esophagitis presence not specified Qualified Code(s): K21.9 - Gastro-esophageal reflux disease without esophagitis (2) Constipation: Code(s): K59.00 - Constipation, unspecified Qualifiers: Constipation type: slow transit constipation Qualified Code(s): K59.01 - Slow transit constipation Plan Continue PPI therapy and H2 blockers as needed. Avoid dietary triggers and late night snacking. Staying upright for minimum 3 hours after meals discussed with patient. Patient will follow-up management of GERD with his PCP. Will call our office if he will experience any GI concerning symptoms. He is agreeable to this plan and verbalizes understanding of instructions. He was given the opportunity to ask questions and all questions answered. Thank you for allowing me to participate in his care Coding Level of Care Code Est Pt Level 3 (69053) Diagnoses Gastroesophageal reflux disease, unspecified whether esophagitis present K21.9 Esophagitis presence: esophagitis presence not specified Slow transit constipation K59.01 Constipation type: slow transit constipation Time Spent (min) 25 Comment 15 minutes spent with patient and additional 10 minutes spent reviewing his records
[2024-04-17 09:00] VITALS: BP 126/86; PULSE 86; O2SAT 96; BMI 38.1
== END 2024-04-17 10:35 | disposition home or self-care (01) ==
PROVIDERS: PCP Internal Medicine; Visit Provider Nurse Practitioner Family
DX: K21.9 Gastro-esophageal reflux disease without esophagitis (principal); K59.01 Slow transit constipation
CPT/HCPCS: 99213

== ENCOUNTER → 2024-04-17 08:45 | Outpatient (BNVA) | payer OTHER, SELFPAY | PROVIDERS: PCP Internal Medicine; Visit Provider Nurse Practitioner Family | DX: K21.9 Gastro-esophageal reflux disease without esophagitis (principal); K59.01 Slow transit constipation | CPT/HCPCS: 99212 ==

== ENCOUNTER 2024-05-30 09:49 | Outpatient (REF) | payer OTHER, SELFPAY ==
[2024-05-30 10:54] LABS: Estimated Average Glucose 117 mg/dL; Hemoglobin A1C 133.1601 umol/L; Hemoglobin A1c % 5.7 % (<6.0); Total Hemoglobin (HGBA1C) 3457.2578 umol/L
[2024-05-30 11:03] LABS: Alanine Aminotransferase 22 U/L (0-40); Albumin Level 4.1 g/dL (3.5-5.0); Alkaline Phosphatase 95 U/L (39-117); Anion Gap 11 (12-20); Aspartate Amino Transferase 15 U/L (5-37); Bilirubin Total 0.3 mg/dL (0.0-1.0); Blood Urea Nitrogen 13 mg/dL (9-16); Calcium 9.6 mg/dL (8.4-10.2); Carbon Dioxide 29 mmol/L (22-29); Chloride 107 mmol/L (96-108); Cholesterol 116 mg/dL (<200); Estimated Glomerular Filt Rate > 60; Glucose Fasting 106 mg/dL (60-99); HDL Cholesterol 24 mg/dL (>40); LDL Cholesterol Calculated 56 mg/dL (<100); Potassium 3.7 mmol/L (3.3-5.1); Sodium 143 mmol/L (135-145); Total Protein 6.6 g/dL (6.5-8.0); Triglycerides 183 mg/dL (<150)
[2024-05-30 11:07] LABS: Microalbum/Creatinine Ratio Ur 5.3 ug/mg cr (<30)
[2024-05-30 11:16] LABS: PSA,Total (Free>4and<10) 0.23 ng/mL (0.00-4.00)
[2024-05-30 11:19] LABS: Vitamin D 25-OH Total 20.9 ng/mL (>30)
[2024-05-30 11:27] LABS: Vitamin D 25-OH Total 20.9 ng/mL (>30)
[2024-05-30 11:30] LABS: Folate 5.8 ng/mL (> or = 4.0); Vitamin B12 < 148 pg/mL (200-900)
== END 2024-05-30 09:50 | disposition home or self-care (01) ==
LOC: HO.LAB 09:49
PROVIDERS: Nurse Practitioner Family; Absent Provider Urology; PCP Internal Medicine; Visit Provider Internal Medicine
DX: E78.5 Hyperlipidemia, unspecified (principal); E11.9 Type 2 diabetes mellitus without complications; E55.9 Vitamin D deficiency, unspecified; E53.8 Deficiency of other specified B group vitamins; Z12.5 Encounter for screening for malignant neoplasm of prostate
CPT/HCPCS: 36415; 80053; 80061; 82043; 82306; 82570; 82607; 82746; 83036; 84153

== ENCOUNTER 2024-06-10 13:10 | Outpatient (AMB) | payer OTHER, SELFPAY ==
[2024-06-10 13:13] VITALS: BP 112/80; BMI 37.0
--- NOTE | 2024-06-10 13:13 | MHC.PC.OV ---
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 Required: No Accompanied by: Self / Same As Patient Allergies metal Allergy (Intermediate, Uncoded 06/10/24 13:27) Rash Medication List - Last Reconciled 06/10/24 by Lucia Severino MD acetaminophen 1,000 mg (2 x 500 mg) PO Q6H PRN 30 days amlodipine 10 mg PO DAILY 90 days atorvastatin 80 mg PO BEDTIME 90 days blood sugar diagnostic (FreeStyle Lite Strips) Use 1 test strip once a day blood-glucose meter (FreeStyle Lite Meter kit) As directed bupropion HCl XL 300 mg PO DAILY cyanocobalamin (vitamin B-12) 1,000 mcg IM Q4W 1 month docusate sodium 100 mg PO BEDTIME ergocalciferol (vitamin D2) 1,250 mcg PO QWEEK 90 days famotidine (Pepcid) 20 mg PO BEDTIME fluticasone furoate-vilanterol 100-25 mcg/dose (Breo Ellipta) 1 inh inhalation DAILY 60 days gabapentin 400 mg PO BEDTIME 90 days gabapentin 300 mg PO BID 30 days hydrocortisone 2.5% (Anusol-HC) 1 appl OR BID-QID PRN hydroxyzine pamoate 25 mg PO TID lancets (FreeStyle Lancets) Use 1 lancet once a day lisinopril 40 mg PO DAILY 90 days metformin 1,000 mg PO BID 90 days mirtazapine 45 mg PO DAILY omeprazole 40 mg PO QAM pyridoxine (vitamin B6) 100 mg PO DAILY 90 days sennosides (senna) 17.2 mg (2 x 8.6 mg) PO BEDTIME sertraline 100 mg PO DAILY syringe (disposable) (BD Bulk Syringe Slip Tip) As directed Ventolin HFA 90 mcg/actuation (albuterol sulfate) 2 puffs inhalation Q4-6H PRN 30 days NS [walker As directed] walker with seat and wheels Tobacco use date assessed: 09/27/23 Dental Screening Dental Screen Date: 06/10/24 Did you have a dental visit in the last 12 months?: Yes Did you have a dental problem in the last 6 months where you did not have access to dental care?: No Was dental information given to patient?: Patient has dentist HPI HPI Comments History of Present Illness Details This is a 49-year-old male with diabetes mellitus type 2, hypertension, dyslipidemia, COPD and mild recurrent major depression that comes today for follow-up on his conditions. A1c within goal. Blood pressure stable. LDL within goal. COPD stable with long-acting inhaler and follow by pulmonology. Depression stable with SSRIs and follow by Psychiatry. He walks with a cane for gait stability due to chronic low back pain which is somehow relieved by gabapentin. He also has low vitamin-D and low vitamin B12 and supplements were sent to the pharmacy. Has not received vitamin B12 supplement yet. Will be resent [facility] Medical History (Updated 06/10/24 @ 13:41 by Lucia Severino MD) Morbid obesity due to excess calories Family history of pancreatic cancer Diabetes mellitus Dyspnea on exertion Somnolence, daytime Loud snoring COPD (chronic obstructive pulmonary disease) Smoker RADHA (obstructive sleep apnea) Mixed hyperlipidemia Bleeding hemorrhoid Mild recurrent major depression Wheezing Moderately severe major depression Renal calculi Chronic pain syndrome Right sided sciatica Depression GERD (gastroesophageal reflux disease) Morbid obesity Impaired glucose tolerance Dyslipidemia Essential hypertension Disc degeneration, lumbar Other spondylosis with radiculopathy, lumbar region Surgical History Hx of colonoscopy History of extraction of renal calculus History of toe surgery History of vasectomy History of appendectomy Family History Father Hypertension Sciatica Mother Stroke Hypertension Diabetes Brother Stroke Pancreatic cancer Family/Other Substance use disorder Social History Household Members: Family Housing: House Do you presently have visiting nurse or other home services: No Alcohol intake: former Comment: medicated, see MAR Patient Tobacco Use Status: Current everyday Tobacco user Tobacco use type: Cigarette Cigarettes Per Day: 1 Years Smoked: 20 e-Cigarette/Vaping Use: Never Used Second Hand Smoke Exposure: Yes Substance Use Type: Marijuana service: No Current occupational status: unemployed Cognitive needs: Yes (Cane) Hearing needs: No Vision needs: Yes Questionnaire Thrive Questionnaire Date Thrive assessed: 09/27/23 Are you currently unemployed and looking for a job?: No FUNMILAYO-7 AMB Questionnaire FUNMILAYO-7 Date FUNMILAYO - 7 assessed: 09/27/23 Source: Developed by Drs. Montana Dubose, Jaleesa White, Cruz Coats and colleagues, with an educational nelda from [employer]. Review of Systems Const All systems reviewed & are unremarkable except as noted in HPI and below Card Denies chest pain at rest, Denies chest pain with activity, Denies edema, Denies irregular heart rhythm, Denies claudication, Denies dyspnea, Denies dyspnea on exertion, Denies orthopnea, Denies paroxysmal nocturnal dyspnea and Denies slow heart rate Resp Denies cough, Denies dyspnea and Denies dyspnea on exertion GI Denies abdominal pain, Denies change in bowel habits, Denies excessive flatus, Denies nausea and Denies vomiting Denies urinary hesitancy, Denies urinary incontinence and Denies urinary urgency Musc Reports back pain, Denies atrophy, Denies deformity and Denies limited range of motion Skin/Breast Denies bleeding lesions, Denies changing lesions and Denies rash Physical exam (Primary Care) Vital Signs: Last Vital Signs BP 112/80 06/10/24 13:13 BMI result Body Mass Index 37.0 BMI Assessment/Plan discussion: High BMI High, discussed plan: lifestyle, weight reduction, dietary and physical activity Tobacco/Smoking Status: Tobacco use Status Tobacco use date assessed 09/27/23 06/10/24 13:19 Patient Tobacco Use Status Current everyday Tobacco 06/10/24 13:19 Tobacco use type Cigarette 06/10/24 13:19 e-Cigarette/Vaping Use Never Used 06/10/24 13:19 Are you ready to quit: Yes Tobacco cessation counseling provided: Yes Items discussed: Nicotine replacement and QuitWorks Relapse Prevention: discussed the importance of a supportive environment, discussed extending NRT, discussed negative mood or depression after quitting, weight gain after smoking is common and discussed dietary, exercise and/or lifestyle changes Number of minutes spent counselin CPT code: 58004 - 4-10 Minutes Thrive Assessment: Date of Thrive Assessment Date Thrive assessed 09/27/23 06/10/24 13:19 Const Limitations: ambulation with cane Resp Effort & Inspection: normal respiratory effort Auscultation: clear to auscultation bilaterally Cardio Jugular venous distension: no JVD Rate: regular rate Rhythm: regular rhythm Heart sounds: S1 normal heart sound present and S2 normal heart sound present Extrem General: Yes full ROM Office Procedures Flu Questionnaire Does the patient have a severe egg allergy?: No Does the patient have severe life threatening allergies?: No Does the patient have a fever or illness today?: No Has the patient ever had Guillain-Paradise Syndrome?: No Has the patient ever had any past reaction to a flu shot?: No Immunizations Fluarix Triv [id number] (PF) 45 mcg (15 mcg x 3)/0.5 mL IM syringe Performing Provider: Lucia Severino MD [place] [facility] [place] [facility] [place] [facility] Administered by: BRANDON Henderson on 06/10/24 13:39 Dose Route Admin Location Dispensed Lot Number Expiration Date NDC Brick Chimney Builder 0.5 mL IM Left Deltoid 0.5 mL [id number] 02/24/25 81221-873-80 [employer] VIS Given Date VIS Provided VIS Publication Date 06/10/24 Single Vaccine 21 Eligibility Eligibility Date Funding Source Not [facility] Eligible 06/10/24 Private Coding Level of Care Code Est Pt Level 4 (85053) Complex EM visit Add On G2211 Diagnoses Type 2 diabetes mellitus without complication, without long-term current use of insulin E11.9 Diabetes mellitus type: type 2 Diabetes mellitus alf insulin use: without long term care pharmacist use Diabetes mellitus complication status: without complication Chronic obstructive pulmonary disease, unspecified COPD type J44.9 COPD type: unspecified COPD Mild recurrent major depression F33.0 Essential hypertension I10 Dyslipidemia E78.5 Additional Codes Vital Signs *Quality* - CPT code: 84729 - 4-10 Minutes ([id number]) Time Spent (min) 25 Assessment & Plan Assessment & Plan (1) Diabetes mellitus: Code(s): E11.9 - Type 2 diabetes mellitus without complications Category: Medical Qualifiers: Diabetes mellitus type: type 2 Diabetes mellitus long term care pharmacist insulin use: without long term care pharmacist use Diabetes mellitus complication status: without complication Qualified Code(s): E11.9 - Type 2 diabetes mellitus without complications Plan: Continue metformin. A1c goal is equal or less than 7%. (2) COPD (chronic obstructive pulmonary disease): Comment: Because of his history of smoking for many years, history of intermittent cough and wheeze, he is at risk of chronic obstructive pulmonary disease. PULMONARY FUNCTION TEST DID NOT SHOW ANY SIGNIFICANT ASTHMA OBSTRUCTIVE AIRWAY DISORDER. has not been done . RESCEDULED Code(s): J44.9 - Chronic obstructive pulmonary disease, unspecified Category: Medical Qualifiers: COPD type: unspecified COPD Qualified Code(s): J44.9 - Chronic obstructive pulmonary disease, unspecified Plan: Continue Breo. Use rescue inhaler as needed. (3) Mild recurrent major depression: Code(s): F33.0 - Major depressive disorder, recurrent, mild Category: Medical Plan: Continue SSRIs. Follow-up with psychiatry. (4) Essential hypertension: Code(s): I10 - Essential (primary) hypertension Category: Medical Plan: Continue lisinopril and amlodipine. Blood pressure goal is equal or less than 130/80. (5) Dyslipidemia: Code(s): E78.5 - Hyperlipidemia, unspecified Category: Medical Plan: Continue statins. LDL goal is less than 70. Orders: Orders Influenza [id number] Immunization Today Z23 - Encounter for immunization Medications: Refilled acetaminophen 1,000 mg (2 x 500 mg) PO Q6H 30 days PRN 240 tabs 2RF pain cyanocobalamin (vitamin B-12) 1,000 mcg IM Q4W 1 month 1 mL 4RF D51.0 - Vitamin B12 deficiency anemia due to intrinsic factor deficiency blood sugar diagnostic (FreeStyle Lite Strips) Use 1 test strip once a day 100 ea 3RF E11.9 - Type 2 diabetes mellitus without complications gabapentin 400 mg PO BEDTIME 90 days 90 caps 1RF gabapentin 300 mg PO BID 30 days 60 caps 0RF
== END 2024-06-10 13:41 | disposition home or self-care (01) ==
PROVIDERS: PCP Internal Medicine; Visit Provider Internal Medicine
DX: E11.9 Type 2 diabetes mellitus without complications (principal); J44.9 Chronic obstructive pulmonary disease, unspecified; F33.0 Major depressive disorder, recurrent, mild; I10 Essential (primary) hypertension; E78.5 Hyperlipidemia, unspecified; Z23 Encounter for immunization

== ENCOUNTER → 2024-06-10 13:10 | Outpatient (BNVA) | payer OTHER, SELFPAY | PROVIDERS: PCP Internal Medicine; Visit Provider Internal Medicine | DX: Z23 Encounter for immunization (principal); E11.9 Type 2 diabetes mellitus without complications; J44.9 Chronic obstructive pulmonary disease, unspecified; F33.0 Major depressive disorder, recurrent, mild; E78.5 Hyperlipidemia, unspecified; I10 Essential (primary) hypertension | CPT/HCPCS: 90471; 90656; 99212 ==

== ENCOUNTER 2024-06-11 10:34 | Outpatient (AMB) | payer OTHER, SELFPAY ==
--- NOTE | 2024-06-11 11:11 | AM.OFFVISNUR ---
Intake Visit Reasons: Anocobalamin vaccine Allergies metal Allergy (Intermediate, Uncoded 06/10/24 13:27) Rash Office Meds cyanocobalamin (vitamin B-12) 1,000 mcg/mL injection solution Performing Provider: Lucia Severino MD [place] [facility] [place] [facility] Administered by: Cheyenne Valladares LPN on 06/11/24 11:11 Dose Route Admin Location Dispensed Lot Number Expiration Date [facility] Secretary Book Keeper 1,000 mcg IM right deltoid 1 mL [id number] 08/26/25 80840-930-96 [employer] Assessment & Plan Assessment & Plan Orders: Orders AMB Vitamin B12 Injection Patient Supplied Today D51.0 - Vitamin B12 deficiency anemia due to intrinsic factor deficiency Medications: New cyanocobalamin (vitamin B-12) 1,000 mcg IM ONCE 1 mL 0RF D51.0 - Vitamin B12 deficiency anemia due to intrinsic factor deficiency
== END 2024-06-11 11:04 | disposition home or self-care (01) ==
PROVIDERS: PCP Internal Medicine; Visit Provider Internal Medicine
DX: D51.0 Vitamin B12 deficiency anemia due to intrinsic factor deficiency (principal)
CPT/HCPCS: J3420

== ENCOUNTER → 2024-06-11 10:34 | Outpatient (BNVA) | payer OTHER, SELFPAY | PROVIDERS: PCP Internal Medicine; Visit Provider Internal Medicine | DX: D51.0 Vitamin B12 deficiency anemia due to intrinsic factor deficiency (principal) | CPT/HCPCS: 96372 ==

== ENCOUNTER 2024-07-05 11:36 | Outpatient (AMB) | payer OTHER, SELFPAY ==
--- NOTE | 2024-07-05 12:21 | A.OFFVIS_ITS ---
Intake Visit Reasons: 1y/US/PSA Intake Note: Patient presents today for a 1 year follow-up/us/psa Meds- Vitamin B6 Allergies to Antibiotic- No Known Allergies Blood Thinner- None Fishing Accessories Maker Required: No Accompanied by: Self / Same As Patient Allergies metal Allergy (Intermediate, Uncoded 07/05/24 12:23) Rash Medication List - Last Reconciled 07/05/24 by Garett Fajardo MD acetaminophen 1,000 mg (2 x 500 mg) PO Q6H PRN 30 days amlodipine 10 mg PO DAILY 90 days atorvastatin 80 mg PO BEDTIME 90 days blood sugar diagnostic (FreeStyle Lite Strips) Use 1 test strip once a day blood-glucose meter (FreeStyle Lite Meter kit) As directed bupropion HCl XL 300 mg PO DAILY cyanocobalamin (vitamin B-12) 1,000 mcg IM Q4W 1 month docusate sodium 100 mg PO BEDTIME ergocalciferol (vitamin D2) 1,250 mcg PO QWEEK 90 days famotidine (Pepcid) 20 mg PO BEDTIME fluticasone furoate-vilanterol 100-25 mcg/dose (Breo Ellipta) 1 inh inhalation DAILY 60 days gabapentin 400 mg PO BEDTIME 90 days gabapentin 300 mg PO BID 30 days hydrocortisone 2.5% (Anusol-HC) 1 appl RI BID-QID PRN hydroxyzine pamoate 25 mg PO TID lancets (FreeStyle Lancets) Use 1 lancet once a day lisinopril 40 mg PO DAILY 90 days metformin 1,000 mg PO BID 90 days mirtazapine 45 mg PO DAILY omeprazole 40 mg PO QAM pyridoxine (vitamin B6) 100 mg PO DAILY 90 days sennosides (senna) 17.2 mg (2 x 8.6 mg) PO BEDTIME sertraline 100 mg PO DAILY syringe (disposable) (BD Bulk Syringe Slip Tip) As directed Ventolin HFA 90 mcg/actuation (albuterol sulfate) 2 puffs inhalation Q4-6H PRN 30 days NS [walker As directed] walker with seat and wheels HPI Comments Details: 07/05/24--Jose is a 49-year-old male who presents today to the office for a 1 year follow up. Reviewed results--PSA- 05/30/24--0.23 ng/mL Renal US - 03/28/24-- kidneys within normal limits no renal calculi 04/06/2023-- Jose is a 48-year-old male who presents today to the office for a 1 year follow up. He has been following up with Dr. Valdez in the past. He was prescribed vitamin B6 at that time. He states that he discontinued taking the medication 6 months ago. He reports intermittent burning sensation secondary to urinating. He denies any family history of prostate cancer. He states he consumes 4-5 glasses of water a day. He had a renal US done on 02/09/2023 [facility] Medical History Morbid obesity due to excess calories Family history of pancreatic cancer Diabetes mellitus Dyspnea on exertion Somnolence, daytime Loud snoring COPD (chronic obstructive pulmonary disease) Smoker RADHA (obstructive sleep apnea) Mixed hyperlipidemia Bleeding hemorrhoid Mild recurrent major depression Wheezing Moderately severe major depression Renal calculi Chronic pain syndrome Right sided sciatica Depression GERD (gastroesophageal reflux disease) Morbid obesity Impaired glucose tolerance Dyslipidemia Essential hypertension Disc degeneration, lumbar Other spondylosis with radiculopathy, lumbar region Surgical History Hx of colonoscopy History of extraction of renal calculus History of toe surgery History of vasectomy History of appendectomy Family History Father Hypertension Sciatica Mother Stroke Hypertension Diabetes Brother Stroke Pancreatic cancer Family/Other Substance use disorder Social History Household Members: Family Housing: House Do you presently have visiting nurse or other home services: No Alcohol intake: former Comment: medicated, see MAR Patient Tobacco Use Status: Current everyday Tobacco user Tobacco use type: Cigarette Cigarettes Per Day: 1 Years Smoked: 20 e-Cigarette/Vaping Use: Never Used Second Hand Smoke Exposure: Yes Substance Use Type: Marijuana service: No Current occupational status: unemployed Cognitive needs: Yes (Cane) Hearing needs: No Vision needs: Yes Review of Systems Const All systems reviewed & are unremarkable except as noted in HPI and below Reports no additional complaints Eyes Reports no additional complaints ENT Reports no additional complaints Card Reports no additional complaints Resp Reports no additional complaints GI Reports no additional complaints Reports as per HPI Musc Reports no additional complaints Skin/Breast Reports system reviewed and no additional complaints, except as documented Neuro Reports no additional complaints Psych Reports no additional complaints Endo Reports no additional complaints Jones/Lymph Reports no additional complaints Aller/Immun Reports no additional complaints Results AMB Urinalysis, Automated UA Leukoctes 0 Purvi/uL Last Edit by HARRIETT Topete on 07/05/24 14:08 UA Nitrite Negative Last Edit by HARRIETT Topete on 07/05/24 14:08 UA Urobilinogen 0.2 mg/dL Last Edit by HARRIETT Topete on 07/05/24 14:0 8 UA Protein 30 mg/dL Last Edit by HARRIETT Topete on 07/05/24 14:08 UA pH 6.0 Last Edit by HARRIETT Topete on 07/05/24 14:08 UA Blood 0 Omar/uL Last Edit by HARRIETT Topete on 07/05/24 14:08 UA Specific Custer 1.020 Last Edit by HARRIETT Topete on 07/05/24 14: 08 UA Ketone Positive Last Edit by HARRIETT Topete on 07/05/24 14:08 UA Bilirubin 2 mg/dL Last Edit by HARRIETT Topete on 07/05/24 14:08 UA Glucose 0 mg/dL Last Edit by HARRIETT Topete on 07/05/24 14:08 Quality Reporting (2019) Adult ([facility] 138/10/19/68) Smoking risk assessment performed?: Yes Patient Tobacco Use Status: Current everyday Tobacco user Results Reviewed Results Reviewed: Laboratory Last Values Urine pH (Auto) 6.0 07/05/24 14:07 Specific C[place] (Auto) 1.020 07/05/24 14:07 Urine Protein (Auto) 30 mg/dL 07/05/24 14:07 Glucose (UA)(Auto) 0 mg/dL 07/05/24 14:07 Urine Ketones (Auto) Positive 07/05/24 14:07 Urine Blood (Auto) 0 Omar/uL 07/05/24 14:07 Urine Nitrite (Auto) Negative 07/05/24 14:07 Urine Bilirubin (Auto) 2 mg/dL 07/05/24 14:07 Urine Urobilinogen (Auto) 0.2 mg/dL 07/05/24 14:07 Leukocyte Esterase (Auto) 0 Purvi/uL 07/05/24 14:07 Date of Service: 03/28/24 US RETROPERITONEAL LIMITED (RENAL ONLY) CLINICAL INFORMATION: Personal history of urinary calculi. COMPARISON: Renal ultrasound 02/09/2023 and 01/03/2022. MRI abdomen 03/25/2022. X-ray abdomen KUB 04/13/2021. CT abdomen and pelvis 04/04/2021. TECHNIQUE: Real-time imaging of the kidneys. Limited visualization due to bowel gas and body habitus. FINDINGS: RIGHT KIDNEY: 11.1 x 5.7 x 5.8 cm (SAG x AP x TRV). No hydronephrosis. No renal calculi. Renal cortical thickness is normal. Limited visualization. LEFT KIDNEY: 11.8 x 6.4 x 4.4 cm (SAG x AP x TRV). No hydronephrosis. No renal calculi. Renal cortical thickness is normal. Limited visualization. IMPRESSION: No hydronephrosis. No renal calculi. EXAMINATION: US RETROPERITONEAL LIMITED (RENAL ONLY) CLINICAL INFORMATION: Calculus of kidney. COMPARISON: MRI abdomen 03/25/2022. Renal ultrasound 01/03/2022 and 05/04/2021. X-ray KUB 04/13/2021. CT abdomen and pelvis 04/04/2021. FINDINGS: RIGHT KIDNEY: 11.0 x 4.6 x 5.2 cm (SAG x AP x TRV). The kidney is normal in size, contour, and echogenicity. Renal cortical thickness is normal. No calculi or focal parenchymal lesions. No hydronephrosis. LEFT KIDNEY: 10.5 x 6.4 x 5.3 cm (SAG x AP x TRV). The kidney is normal in size, contour, and echogenicity. Renal cortical thickness is normal. No calculi or focal parenchymal lesions. No hydronephrosis. Incidental note made of an echogenic liver consistent with hepatic steatosis. IMPRESSION: 1. Normal-appearing kidneys. ? 2. Incidentally noted hepatic steatosis. Assessment & Plan Assessment & Plan (1) Screening PSA (prostate specific antigen): Code(s): Z12.5 - Encounter for screening for malignant neoplasm of prostate Category: Medical (2) History of kidney stones: Code(s): Z87.442 - Personal history of urinary calculi Category: Medical Plan Increase water intake Continue vitamin B6. Continue monitor kidneys, will check renal US in one year. PSA screening. Orders: Orders US renal BI 10 Months Z87.442 - Personal history of urinary calculi AMB Urinalysis Automated 07/05/24 Z13.9 - Encounter for screening, unspecified PSA,Total (Free>4and<10) 11 Months Z12.5 - Encounter for screening for malignant neoplasm of prostate Medications: Refilled pyridoxine (vitamin B6) 100 mg PO DAILY 90 tabs 3RF 90 days N20.0 - Calculus of kidney Patient Instructions: The patient had an opportunity to ask questions regarding treatment plan. The patient expressed understanding and agreement with the above treatment plan. The patient is aware they should contact our office by phone for worsening of their current condition or the appearance of new symptoms. Compliance is encouraged with any medications and followup testing that is ordered. It is a privilege to be allowed the opportunity to participate in the urologic care of your patient. If you have any questions or concerns regarding treatment for the above conditions please do not hesitate to contact me. The office telephone contact is [phone]. This note is constructed in part using voice recognition software. While every effort has been made to ensure accuracy coat presser errors may have been included. Yours sincerely, Garett Fajardo MD Coding Level of Care Code Est Pt Level 4 (50362) Diagnoses Screening PSA (prostate specific antigen) Z12.5 History of kidney stones Z87.442
== END 2024-07-05 12:35 | disposition home or self-care (01) ==
PROVIDERS: PCP Internal Medicine; Visit Provider Urology
DX: Z12.5 Encounter for screening for malignant neoplasm of prostate (principal); Z87.442 Personal history of urinary calculi
CPT/HCPCS: 99214

== ENCOUNTER → 2024-07-05 11:36 | Outpatient (BNVA) | payer OTHER, SELFPAY | PROVIDERS: PCP Internal Medicine; Visit Provider Urology | DX: Z12.5 Encounter for screening for malignant neoplasm of prostate (principal); Z87.442 Personal history of urinary calculi | CPT/HCPCS: 81003; 99212 ==

== ENCOUNTER 2024-07-12 09:50 | Outpatient (AMB) | payer OTHER, SELFPAY ==
--- NOTE | 2024-07-12 10:38 | AM.OFFVISNUR ---
Intake Visit Reasons: B12 Shot Allergies metal Allergy (Intermediate, Uncoded 07/05/24 12:23) Rash Office Meds cyanocobalamin (vitamin B-12) 1,000 mcg/mL injection solution Performing Provider: Lucia Severino MD Performing [facility] [facility] [place] [facility] Administered by: Cheyenne Valladares LPN on 07/12/24 10:38 Dose Route Admin Location Dispensed Lot Number Expiration Date [facility] Marine Chronometer Assembler 1,000 mcg IM left deltoid 1 mL [id number] 08/26/25 77672-112-17 [employer] Assessment & Plan Assessment & Plan Orders: Orders AMB Vitamin B12 Injection Patient Supplied Today D51.0 - Vitamin B12 deficiency anemia due to intrinsic factor deficiency Medications: New cyanocobalamin (vitamin B-12) 1,000 mcg IM ONCE 1 mL 0RF D51.0 - Vitamin B12 deficiency anemia due to intrinsic factor deficiency
== END 2024-07-12 10:40 | disposition home or self-care (01) ==
PROVIDERS: PCP Internal Medicine; Visit Provider Internal Medicine
DX: D51.0 Vitamin B12 deficiency anemia due to intrinsic factor deficiency (principal)
CPT/HCPCS: J3420

== ENCOUNTER → 2024-07-12 09:50 | Outpatient (BNVA) | payer OTHER, SELFPAY | PROVIDERS: PCP Internal Medicine; Visit Provider Internal Medicine | DX: D51.0 Vitamin B12 deficiency anemia due to intrinsic factor deficiency (principal) | CPT/HCPCS: 96372 ==

== ENCOUNTER 2024-08-09 09:52 | Outpatient (AMB) | payer OTHER, SELFPAY ==
--- NOTE | 2024-08-09 10:14 | AM.OFFVISNUR ---
Intake Visit Reasons: B12 Shot Allergies metal Allergy (Intermediate, Uncoded 07/05/24 12:23) Rash Office Meds cyanocobalamin (vitamin B-12) 1,000 mcg/mL injection solution Performing Provider: Lucia Severino MD [facility] Administered by: Ayla Toscano RN on 08/09/24 10:14 Dose Route Admin Location Dispensed Lot Number Expiration Date NDC Link Trainer Operator 1,000 mcg IM 1 mL [id number] 08/26/25 12545-807-94 [place] Assessment & Plan Assessment & Plan Orders: Orders AMB Vitamin B12 Injection Patient Supplied Today E53.8 - Deficiency of other specified B group vitamins Medications: New cyanocobalamin (vitamin B-12) 1,000 mcg IM ONCE 1 mL 0RF E53.8 - Deficiency of other specified B group vitamins
== END 2024-08-09 10:22 | disposition home or self-care (01) ==
PROVIDERS: PCP Internal Medicine; Visit Provider Internal Medicine
DX: E53.8 Deficiency of other specified B group vitamins (principal)

== ENCOUNTER → 2024-08-09 09:52 | Outpatient (BNVA) | payer OTHER, SELFPAY | PROVIDERS: PCP Internal Medicine; Visit Provider Internal Medicine | DX: E53.8 Deficiency of other specified B group vitamins (principal) | CPT/HCPCS: 96372; J3420 ==

== ENCOUNTER 2024-09-09 09:42 | Outpatient (AMB) | payer OTHER, SELFPAY ==
--- NOTE | 2024-09-09 09:52 | AM.OFFVISNUR ---
Intake Visit Reasons: B12 Shot Allergies metal Allergy (Intermediate, Uncoded 07/05/24 12:23) Rash Office Meds cyanocobalamin (vitamin B-12) 1,000 mcg/mL injection solution Performing Provider: Lucia Severino MD [place] [facility] [place] [facility] Administered by: Cheyenne Valladares LPN on 09/09/24 09:52 Dose Route Admin Location Dispensed Lot Number Expiration Date [facility] [place] Solution Director 1,000 mcg IM left deltoid 1 mL [id number] 07/27/25 65603-613-90 [facility] Assessment & Plan Assessment & Plan Orders: Orders AMB Vitamin B12 Injection Patient Supplied Today D51.0 - Vitamin B12 deficiency anemia due to intrinsic factor deficiency Medications: New cyanocobalamin (vitamin B-12) 1,000 mcg IM ONCE 1 mL 0RF D51.0 - Vitamin B12 deficiency anemia due to intrinsic factor deficiency
== END 2024-09-09 09:54 | disposition home or self-care (01) ==
PROVIDERS: PCP Internal Medicine; Visit Provider Internal Medicine
DX: D51.0 Vitamin B12 deficiency anemia due to intrinsic factor deficiency (principal)

== ENCOUNTER → 2024-09-09 09:42 | Outpatient (BNVA) | payer OTHER, SELFPAY | PROVIDERS: PCP Internal Medicine; Visit Provider Internal Medicine | DX: D51.0 Vitamin B12 deficiency anemia due to intrinsic factor deficiency (principal) | CPT/HCPCS: 96372; J3420 ==

== ENCOUNTER 2024-10-17 10:54 | Outpatient (AMB) | payer OTHER, SELFPAY ==
--- NOTE | 2024-10-17 11:17 | MHC.OFFVIS ---
Vital Signs 10/17/24 11:18 Height 5 ft 6 in Weight 238 lb 1.588 oz BMI 38.4 BP 110/70 Blood Pressure Location Lt brachial Position Sitting Pulse 100 Pulse Source Pulse Oximeter Pulse Oximetry (%) 97 Oxygen Delivery Method Room Air Intake Visit Reasons: Asthma Intake Note: pt is here for asthma follow up and states he is doing well. Hvac Field Service Technician Required: No Allergies metal Allergy (Intermediate, Uncoded 10/17/24 11:34) Rash Medication List - Last Reconciled 10/17/24 by Bobby Ralph MD acetaminophen 1,000 mg (2 x 500 mg) PO Q6H PRN 30 days amlodipine 10 mg PO DAILY 90 days atorvastatin 80 mg PO BEDTIME 90 days blood sugar diagnostic (FreeStyle Lite Strips) Use 1 test strip once a day blood-glucose meter (FreeStyle Lite Meter kit) As directed bupropion HCl XL 300 mg PO DAILY cyanocobalamin (vitamin B-12) 1,000 mcg IM Q4W 1 month docusate sodium 100 mg PO BEDTIME ergocalciferol (vitamin D2) 1,250 mcg PO QWEEK 90 days famotidine (Pepcid) 20 mg PO BEDTIME fluticasone furoate-vilanterol 100-25 mcg/dose (Breo Ellipta) 1 inh inhalation DAILY 60 days gabapentin 300 mg PO BID 30 days gabapentin 400 mg PO BEDTIME 90 days hydrocortisone 2.5% (Anusol-HC) 1 appl WA BID-QID PRN hydroxyzine pamoate 25 mg PO TID lancets (FreeStyle Lancets) Use 1 lancet once a day lisinopril 40 mg PO DAILY 90 days metformin 1,000 mg PO BID 90 days mirtazapine 45 mg PO DAILY omeprazole 40 mg PO QAM pyridoxine (vitamin B6) 100 mg PO DAILY 90 days sennosides (senna) 17.2 mg (2 x 8.6 mg) PO BEDTIME sertraline 100 mg PO DAILY syringe (disposable) (BD Bulk Syringe Slip Tip) As directed Ventolin HFA 90 mcg/actuation (albuterol sulfate) 2 puffs inhalation Q4-6H PRN 30 days NS [walker As directed] walker with seat and wheels Do you need a note to return to daycare/school/sports/work: No HPI HPI Asthma: Details: THIS 49 YEARS OLD GENTLEMAN IS HERE FOR HIS 6 MONTHS FOLLOW-UP, FOR COPD AND SLEEP APNEA. BREATHING LAKE HE IS DOING WELL WITH USE OF BREO 1 INHALATION DAILY AND HE NEEDS TO USE VENTOLIN ONLY ONCE IN A WHILE SMOKING DOWN TO 2 CIGARETTES A DAY AND HAS NOT BEEN ABLE TO QUIT COMPLETELY. HE CLAIMS THAT HE SLEEPS GOOD DOES NOT WAKE UP FREQUENTLY DURING THE NIGHT. HE HAS PUT ON SOME WEIGHT SINCE HIS LAST VISIT, BUT STILL SLEEPING OKAY, AND DOES NOT THINK HE WOULD NEED CPAP. HE HAS MULTIPLE COMORBIDITIES ESPECIALLY DIABETES MELLITUS AND HAS SOMEWHAT IMPAIRED WALKING, SO CAN NOT DO MUCH EXERCISE. ON LICENSE OF [facility] Medical History Morbid obesity due to excess calories Family history of pancreatic cancer Diabetes mellitus Dyspnea on exertion Somnolence, daytime Loud snoring COPD (chronic obstructive pulmonary disease) Smoker RADHA (obstructive sleep apnea) Mixed hyperlipidemia Bleeding hemorrhoid Mild recurrent major depression Wheezing Moderately severe major depression Renal calculi Chronic pain syndrome Right sided sciatica Depression GERD (gastroesophageal reflux disease) Morbid obesity Impaired glucose tolerance Dyslipidemia Essential hypertension Disc degeneration, lumbar Other spondylosis with radiculopathy, lumbar region Surgical History Hx of colonoscopy History of extraction of renal calculus History of toe surgery History of vasectomy History of appendectomy Family History Father Hypertension Sciatica Mother Stroke Hypertension Diabetes Brother Stroke Pancreatic cancer Family/Other Substance use disorder Social History Household Members: Family Housing: House Do you presently have visiting nurse or other home services: No Alcohol intake: former Comment: medicated, see MAR Patient Tobacco Use Status: Current everyday Tobacco user Tobacco use type: Cigarette Cigarettes Per Day: 1 Years Smoked: 20 e-Cigarette/Vaping Use: Never Used Second Hand Smoke Exposure: Yes Substance Use Type: Marijuana service: No Current occupational status: unemployed Cognitive needs: Yes (Cane) Hearing needs: No Vision needs: Yes Review of Systems Const All systems reviewed & are unremarkable except as noted in HPI and below Eyes Reports no additional complaints ENT Denies nasal congestion and Denies nasal discharge Card Denies chest pain, Denies irregular heart rhythm and Denies leg edema Resp Reports as per HPI GI Reports constipation and Reports heartburn Reports no additional complaints Musc Reports back pain Skin/Breast Reports system reviewed and no additional complaints, except as documented Neuro Reports no additional complaints and Reports radicular pain Psych Reports depression (Has had major depression a few times) Endo Reports other (Has borderline diabetes mellitus and hyperlipidemia) Physical Exam Vital Signs: Last Vital Signs Pulse 100 10/17/24 11:18 BP 110/70 10/17/24 11:18 Pulse Ox 97 10/17/24 11:18 Oxygen Delivery Method Room Air 10/17/24 11:18 BMI result Body Mass Index 38.4 Const Other: He is grossly overweight General: comfortable, no acute distress, alert and awake Orientation/consciousness: patient oriented x3 HEENT Head: Yes normal to inspection General nose exam: No nasal polyps present and No nasal discharge present Face and sinus: Yes sinuses nontender Mouth: oropharynx abnormals (Oropharynx is crowded and narrow, Mallampati class 4) Throat: Yes posterior oropharynx normal Eyes General: appearance normal, both eyes and all related structures Neck Neck: Yes normal visual inspection, Yes no lymphadenopathy, Yes trachea midline, Yes no JVD and Yes other (Neck circumference 17-1/2 inch) Thyroid: Thyroid normal Chest Chest palpation & inspection: normal inspection of the chest, normal palpation of entire chest wall and no tenderness Resp Effort & Inspection: normal respiratory effort Auscultation: clear to auscultation bilaterally, no crackles, no rhonchi and no wheezes Cardio Palpation: normal PMI Rate: regular rate Rhythm: regular rhythm Heart sounds: no gallops and no murmurs Peripheral pulses: Peripheral pulses 2+ throughout GI Palpation (GI): Soft to palpation, Tenderness to palpation present (GI), No hepatosplenomegaly present, Palpable mass present and Other GI palpation findings present (Abdomen is moderately obese and protuberant) Auscultation: normal bowel sounds Back/Spine/Pelvis Thoracic/Lumbar Spine: thoracic and lumbar spine normal to inspection, thoraco-lumbar ROM limited and thoraco-lumbar spasm Skin General skin exam: no rashes or lesions noted Neuro General: patient oriented x3, No gait normal (Slightly impaired due to back pain, uses cane) and no focal motor deficits Cranial nerves: Yes CN's II-XII intact bilaterally Extrem General: Yes normal to inspection, Yes no clubbing, cyanosis or edema and Yes no calf tenderness Psych Mental Status: mental status grossly normal Speech and movement: Normal speech and movement present Quality Reporting (2019) Adult ([facility] 138/10/19/68) Smoking risk assessment performed?: Yes Patient Tobacco Use Status: Current everyday Tobacco user Assessment & Plan Assessment & Plan (1) RADHA (obstructive sleep apnea): Comment: PER SLEEP STUDY HE HAS ONLY MILD OBSTRUCTIVE SLEEP APNEA . WE ARE TRYING TO TREAT HIM WITH CONSERVATIVE MEASURES INCLUDING WEIGHT REDUCTION AND ALSO POSITION THERAPY. HE SEEMS IS DOING WELL AND AT PRESENT DOES NOT HAVE ANY SIGNIFICANT SYMPTOMS OF RADHA. HE HAS GAINED SOME WEIGHT SINCE HIS LAST VISIT AND I BROUGHT THIS TO HIS ATTENTION. HE SAY IS BECAUSE OF HIS DIABETES , AND PERIPHERAL NEUROPATHY HE IS NOT ABLE TO DO MUCH EXERCISE. Code(s): G47.33 - Obstructive sleep apnea (adult) (pediatric) Category: Medical Plan: COUNSELED TO WATCH DIET. TRY TO WALK MUCH POSSIBLE EVEN WITH THE HELP OF CANE. (2) COPD (chronic obstructive pulmonary disease): Comment: Because of his history of smoking for many years, history of intermittent cough and wheeze, he is at risk of chronic obstructive pulmonary disease. PULMONARY FUNCTION TEST DID NOT SHOW ANY SIGNIFICANT ASTHMA /OBSTRUCTIVE AIRWAY DISORDER. HE IS BEING TREATED WITH BREO 100-25 1 INHALATION DAILY AND DOING OKAY WITHOUT ANY EXACERBATIONS. Code(s): J44.9 - Chronic obstructive pulmonary disease, unspecified Category: Medical Qualifiers: COPD type: unspecified COPD Qualified Code(s): J44.9 - Chronic obstructive pulmonary disease, unspecified Plan: CONTINUE BREO 100-251 INHALATION DAILY VENTOLIN HFA 2 PUFFS Q 6 HOURS P.R.N. TRY TO STOP SMOKING COMPLETELY. Coding Level of Care Code Est Pt Level 3 (06766) Diagnoses RADHA (obstructive sleep apnea) G47.33 Chronic obstructive pulmonary disease, unspecified COPD type J44.9 COPD type: unspecified COPD
[2024-10-17 11:18] VITALS: BP 110/70; PULSE 100; O2SAT 97; BMI 38.4
--- OUTSIDE RECORDS SUMMARY | 2024-10-17 12:12 | XMS_ITS | Clinical Summary ---
Author Organization [facility] Address [address] [place] [address] Care Team Providers Care Pst Specialist Name Role Phone Rosangela Faye MORIS Primary Care Provider [phone] Source Comments PLEASE NOTE, if this patient is a minor, it may be UNLAWFUL to discuss sensitive information that is contained in these records (such as FAMILY PLANNING, MENTAL HEALTH or SUBSTANCE ABUSE) with the minor patient's parent or other person without the patient's specific authorization.[facility] Allergies No known active allergies Medications omeprazole (PRILOSEC) [address] capsuleIndicatio ns:Gastroesophag eal reflux disease without esophagitis Take 1 Cap by mouth every morning before breakfast. Do not crush or chew. 30 Cap 1 5 Active ibuprofen (ADVIL,MOTRIN) 600 mg tabletIndication s:Right-sided low back pain without sciatica Take 1 Tab by mouth 3 (three) times daily as needed for moderate pain or pain. 30 Tab 1 5 Active simvastatin (ZOCOR) 20 mg tabletIndication s:Hyperlipidemia Take 1 Tab by mouth nightly at bedtime. 30 Tab 2 5 Active docusate sodium (COLACE) 100 mg capsuleIndicatio ns:Hemorrhoids, unspecified hemorrhoid type Take 1 Cap by mouth 2 (two) times daily as needed for constipation. 60 Cap 1 5 Active hydrocortisone (PROCTOCORT) 1 % rectal creamIndications :Hemorrhoids, unspecified hemorrhoid type Place rectally 2 (two) times daily. 30 g 1 5 Active cyclobenzaprine (FLEXERIL) 5 mg tabletIndication s:Right-sided low back pain without sciatica Take 1 Tab by mouth nightly at bedtime as needed for muscle spasms. 20 Tab 0 5 Active Active Problems Problem Noted Date Diagnosed Date Hyperlipidemia 05/07/2015 Hemorrhoid 05/07/2015 Overview (05/07/2015): Occasional Bleeding+ but no pain Right-sided low back pain without sciatica 04/09 Nodule of kidney 02/13/2015 Overview (02/13/2015): CT abd/pelvis(12/03/14@ [facility]): 1) Rt sided Obstructive Uropathy with 3mm Obstructing calculus @ Rt UVJ resulting in mod Rt side hydroureteronephrosis. Few punctate 2mm calculi within Rt and Lt Kidneys+ 2) 6mm nodule within the Rt middle Lobe of (?Kidney). Rec f/u CT in 12 mo in low risk pt. If unchanged, no further w/u 3) There is Transitional anatomy- L5 is sacralized in to R and L sacral ala. Diffuse annular disc bulge that along with congenitally short pedicles result in mod- severe neural foraminal stenosis b/l @L4-L5 with possible mass effect on exiting nerve roots at that level. Stenosis of intervertebral foramen 02/13/2015 Overview (02/13/2015): Incidental finding. CT abd/pelvis(12/03/14@ [facility]): 1) Rt sided Obstructive Uropathy with 3mm Obstructing calculus @ Rt UVJ resulting in mod Rt side hydroureteronephrosis. Few punctate 2mm calculi within Rt and Lt Kidneys+ 2) 6mm nodule within the Rt middle Lobe of (?Kidney). Rec f/u CT in 12 mo in low risk pt. If unchanged, no further w/u 3) There is Transitional anatomy- L5 is sacralized in to R and L sacral ala. Diffuse annular disc bulge that along with congenitally short pedicles result in mod- severe neural foraminal stenosis b/l @L4-L5 with possible mass effect on exiting nerve roots at that level. Obesity 02/10/2015 Calculus of right kidney 02/10/2015 Overview (02/13/2015): Was seen in [facility] ER on 12/03/14 for Rt flank pain. Had CT scan and he passed stone with Flomax. CT abd/pelvis: 1) Rt sided Obstructive Uropathy with 3mm Obstructing calculus @ Rt UVJ resulting in mod Rt side hydroureteronephrosis. Few punctate 2mm calculi within Rt and Lt Kidneys+ 2) 6mm nodule within the Rt middle Lobe of (?Kidney). Rec f/u CT in 12 mo in low risk pt. If unchanged, no further w/u 3) There is Transitional anatomy- L5 is sacralized in to R and L sacral ala. Diffuse annular disc bulge that along with congenitally short pedicles result in mod- severe neural foraminal stenosis b/l @L4-L5 with possible mass effect on exiting nerve roots at that level. Smoking 02/10/2015 GERD (gastroesophageal reflux disease) 5 Marijuana smoker 02/10/2015 Immunizations Name Administration Dates Next Due Hep B, Adult/Adol (ENERGIX/RECOMBIVAX) 5 Family History Medical History Relation Name Comments Diabetes Brother Hypertension Brother Diabetes Mother ?lung condition Heart Problems Mother ?lung condition Relation Name Status Comments Brother Alive Father Mother ?lung condition Social History Tobacco Use Types Packs/Day Years Used Date Smoking Tobacco: Every Day Cigarettes Smokeless Tobacco: Never Tobacco Cessation:Ready to Q uit: Yes; Counseling Given: Yes Comments:0.5 ppd since he was 18yo Alcohol Use Standard Drinks/Week Comments No 0 (1 standard drink = 0.6 oz pur e alcohol) Social Connections Answer Date Recorded Social Connections and Isolation 0 04/21/2019 Financial Resource Strain Answer Date R ecorded Financial Resource Strain 0 2018 Stress Answer Date Recorded Stress 0 04/21/2019 Physical Activity Answer Date Recorded Physical Activity 0 04/21/2019 Food Insecurity Answer Date Recorded Food 0 04/21/2019 Transportation Needs Answer Date Record ed Transportation 0 04/21/2019 Housing Stability Answer Date Recorded Housing 0 04/21/2019 Safety and Environment Answer Date Andres rded Safety 0 04/21/2019 Utilities Answer Date Recorded Utilities 0 04/21/2019 Employment Answer Date Recorded Employment 0 04/21/2019 Sex and Gender Information Value Date Recorded Sex Assigned at Not on file Legal Sex Male 6:22 AM PDT Gender Identity Not on file Sexual Orientation Not on file Occupation Industry Job Start Date Job End Date [employer] [facility] [place]. Not on file Not on file Not on file Last Filed Vital Signs Vital Sign Reading Time Taken Comments Blood Pressure 120/78 05/07/2015 3:50 PM EDT Pulse 64 05/07/2015 3:50 PM EDT Temperature 36.7 ??C (98.1 ??F) 05/07/2015 3:50 PM ED T Respiratory Rate 18 05/07/2015 3:50 PM EDT Oxygen Saturation - - Inhaled Oxygen Concentration - - Weight 108.9 kg (240 lb) 05/07/2015 3:50 PM EDT Height 167.6 cm (5' 6 ) 05/07/2015 3:50 PM EDT Body Mass Index 38.74 05/07/2015 3:50 PM EDT Plan of Treatment Not on file Insurance [facility] [employer] PLAN Member Subscriber Plan / Payer (Ef fective 2015-Present) Name:Jose Irizarry Relation to Subscriber:Self Name:Jose Irizarry Payer ID:[id number] Group ID:[id number] Type:Medicaid Address: [facility] [address] [place] [address] Care Teams Pst Specialist Relationship Specialty Start Date End Date Rosangela Faye FNP [address] [place] [address] PCP - General 10/23/18
== END 2024-10-17 11:39 | disposition home or self-care (01) ==
PROVIDERS: PCP Internal Medicine; Visit Provider Internal Medicine
DX: G47.33 Obstructive sleep apnea (adult) (pediatric) (principal); J44.9 Chronic obstructive pulmonary disease, unspecified
CPT/HCPCS: 99213

== ENCOUNTER → 2024-10-17 10:54 | Outpatient (BNVA) | payer OTHER, SELFPAY | PROVIDERS: PCP Internal Medicine; Visit Provider Internal Medicine | DX: J44.9 Chronic obstructive pulmonary disease, unspecified (principal); G47.33 Obstructive sleep apnea (adult) (pediatric) | CPT/HCPCS: 99212 ==

== ENCOUNTER 2024-10-21 14:53 | Outpatient (AMB) | payer OTHER, SELFPAY ==
--- NOTE | 2024-10-21 15:12 | A.OFFPC_ITS ---
Vital Signs 10/21/24 15:17 Height 5 ft 6 in Weight 244 lb BMI 39.4 BP 130/86 Blood Pressure Location Lt brachial Position Sitting Intake Visit Reasons: DM Intake Note: Patient here for a follow up DM Hog Grader Required: Yes Hog Grader Language: Customer Experience Intern Name: Lucia Severino MD Information Interpreted: non-clinical & clinical Accompanied by: Self / Same As Patient Allergies metal Allergy (Intermediate, Uncoded 10/21/24 15:28) Rash Medication List - Last Reconciled 10/21/24 by Lucia Severino MD acetaminophen 1,000 mg (2 x 500 mg) PO Q6H PRN 30 days amlodipine 10 mg PO DAILY 90 days atorvastatin 80 mg PO BEDTIME 90 days blood sugar diagnostic (FreeStyle Lite Strips) Use 1 test strip once a day blood-glucose meter (FreeStyle Lite Meter kit) As directed bupropion HCl XL 300 mg PO DAILY cyanocobalamin (vitamin B-12) 1,000 mcg IM Q4W 1 month docusate sodium 100 mg PO BEDTIME ergocalciferol (vitamin D2) 1,250 mcg PO QWEEK 90 days famotidine (Pepcid) 20 mg PO BEDTIME fluticasone furoate-vilanterol 100-25 mcg/dose (Breo Ellipta) 1 inh inhalation DAILY 60 days gabapentin 300 mg PO BID 30 days gabapentin 400 mg PO BEDTIME 90 days hydrocortisone 2.5% (Anusol-HC) 1 appl MI BID-QID PRN hydroxyzine pamoate 25 mg PO TID lancets (FreeStyle Lancets) Use 1 lancet once a day lisinopril 40 mg PO DAILY 90 days metformin 1,000 mg PO BID 90 days mirtazapine 45 mg PO DAILY omeprazole 40 mg PO QAM pyridoxine (vitamin B6) 100 mg PO DAILY 90 days sennosides (senna) 17.2 mg (2 x 8.6 mg) PO BEDTIME sertraline 100 mg PO DAILY syringe (disposable) (BD Bulk Syringe Slip Tip) As directed Ventolin HFA 90 mcg/actuation (albuterol sulfate) 2 puffs inhalation Q4-6H PRN 30 days NS [walker As directed] walker with seat and wheels Tobacco use date assessed: 10/21/24 Dental Screening Dental Screen Date: 10/21/24 Did you have a dental visit in the last 12 months?: Yes Did you have a dental problem in the last 6 months where you did not have access to dental care?: No Was dental information given to patient?: Patient has dentist HPI HPI Comments History of Present Illness Details This is a 49-year-old male with diabetes mellitus type 2, hypertension, hyperlipidemia, pernicious anemia, COPD and moderate recurrent major depression that comes today for follow-up on his conditions. A1c within goal being 6.3% today. Blood pressure stable. Last LDL was within goal and will be repeated in 4 months. Last vitamin B12 was low and B12 injections once a month for started having the last 1 today. On long-acting inhalers for COPD which has been stable. Advised to quit smoking. Depression is follow by Psychiatry. [facility] Medical History (Updated 10/21/24 @ 19:48 by Lucia Severino MD) Morbid obesity due to excess calories Family history of pancreatic cancer Diabetes mellitus Dyspnea on exertion Somnolence, daytime Loud snoring COPD (chronic obstructive pulmonary disease) Smoker RADHA (obstructive sleep apnea) Mixed hyperlipidemia Bleeding hemorrhoid Mild recurrent major depression Wheezing Moderately severe major depression Renal calculi Chronic pain syndrome Right sided sciatica Depression GERD (gastroesophageal reflux disease) Morbid obesity Impaired glucose tolerance Dyslipidemia Essential hypertension Disc degeneration, lumbar Other spondylosis with radiculopathy, lumbar region Surgical History Hx of colonoscopy History of extraction of renal calculus History of toe surgery History of vasectomy History of appendectomy Family History Father Hypertension Sciatica Mother Stroke Hypertension Diabetes Brother Stroke Pancreatic cancer Family/Other Substance use disorder Social History Household Members: Family Housing: House Do you presently have visiting nurse or other home services: No Alcohol intake: former Comment: medicated, see MAR Patient Tobacco Use Status: Current everyday Tobacco user Tobacco use type: Cigarette Cigarettes Per Day: 2 Years Smoked: 20 Packs per year/per ci.00 e-Cigarette/Vaping Use: Never Used Second Hand Smoke Exposure: Yes Substance Use Type: Marijuana service: No Current occupational status: unemployed Cognitive needs: Yes (Cane) Hearing needs: No Vision needs: Yes Questionnaire PHQ-9 Over the last 2 weeks, how often have you been bothered by any of the following problems? 1. Little interest or pleasure in doing things: nearly every day 2. Feeling down, depressed, or hopeless: several days 3. Trouble falling or staying asleep, or sleeping too much: not at all 4. Feeling tired or having little energy: more than half the days 5. Poor appetite or overeating: nearly every day 6. Feeling bad about yourself - or that you are a failure or have let yourself or your family down: nearly every day 7. Trouble concentrating on things, such as reading the newspaper or watching television: several days 8. Moving or speaking so slowly that other people could have noticed. Or the opposite - being so fidgety or restless that you have been moving around a lot more than usual: nearly every day 9. Thoughts that you would be better off or of hurting yourself in some way: several days Total score: 17 Depression Screening Interpretation: Positive (no suicidal thoughts) Depression Screening Follow-up: Existing condition, In treatment and Follow-up Visit Requested Depression Screening Done: Yes 71064 - PHQ-9 Billing: Yes Source: Developed by Drs. Montana Dubose, Jaleesa White, Cruz Coats and colleagues, with an educational nelda from [employer] Thrive Questionnaire Date Thrive assessed: 10/21/24 I am a: Patient What is your living situation today?: I have a steady place to live Within the past 12 months, did the food you bought not last and you didn't have the money to get more?: Never true Within the past 12 months, did you worry whether your food would run out before you got money to buy more?: Never true Do you have trouble paying for medicines?: No Do you have trouble getting transportation to medical appointments?: No Do you have trouble paying your heating and electricity bill?: No Do you have trouble taking care of your child, family member or friend?: No Do you have trouble with day-to-day activities such as bathing, preparing meals, shopping, managing finances, etc.?: No Are you currently unemployed and looking for a job?: No Are you interested in more education?: No Please select the resources that you would like help with: None Currently or been in a relationship where the following occur: No concerns reported THRIVE Score: 0 AUDIT C Alcohol Use Questionnaire (AUDIT-C) 1. How often do you have a drink containing alcohol?: Never Total Score: 0 Score Reviewed/Action Taken: No FUNMILAYO-7 AMB Questionnaire FUNMILAYO-7 Date FUNMILAYO - 7 assessed: 10/21/24 Feeling nervous, anxious, or on edge: 3 = Nearly every day Not being able to stop or control worryin = Several days Worrying too much about different things: 3 = Nearly every day Trouble relaxin = Nearly every day Being so restless that it is hard to sit still: 1 = Several days Becoming easily annoyed or irritable: 1 = Several days Feeling afraid as if something awful might happen: 1 = Several days Total FUNMILAYO-7 score (0-4 normal; 5-9 mild; 10-14 moderate; 15-21 severe): 13 Source: Developed by Drs. Montana Dubose, Jaleesa White, Cruz Coast and colleagues, with an educational nelda from [employer] FUNMILAYO-7 Assessment Billing FUNMILAYO-7 Assessment Tool: FUNMILAYO-7 Assessment 51836 Review of Systems Const All systems reviewed & are unremarkable except as noted in HPI and below Card Denies chest pain at rest, Denies chest pain with activity, Denies edema, Denies irregular heart rhythm, Denies claudication, Denies dyspnea, Denies dyspnea on exertion, Denies orthopnea, Denies paroxysmal nocturnal dyspnea and Denies slow heart rate Resp Denies cough, Denies dyspnea and Denies dyspnea on exertion Musc Denies abnormal gait, Denies atrophy, Denies deformity and Denies limited range of motion Skin/Breast Denies bleeding lesions, Denies changing lesions and Denies rash Neuro Denies abnormal gait, Denies behavioral changes and Denies lack of coordination Psych Denies behavioral changes Physical exam (Primary Care) Vital Signs: Last Vital Signs BP 130/86 10/21/24 15:17 BMI result Body Mass Index 39.4 BMI Assessment/Plan discussion: High BMI High, discussed plan: lifestyle, weight reduction, dietary and physical activity Tobacco/Smoking Status: Tobacco use Status Tobacco use date assessed 10/21/24 10/21/24 15:23 Patient Tobacco Use Status Current everyday Tobacco 10/21/24 15:15 Tobacco use type Cigarette 10/21/24 15:15 e-Cigarette/Vaping Use Never Used 10/21/24 15:15 Are you ready to quit: No Tobacco cessation counseling provided: Yes Items discussed: Nicotine replacement and QuitWorks Relapse Prevention: discussed the importance of a supportive environment, discussed negative mood or depression after quitting, weight gain after smoking is common and discussed dietary, exercise and/or lifestyle changes Number of minutes spent counselin CPT code: 13552 - 4-10 Minutes PHQ-9: PHQ-9 Score PHQ-9: Total score 17 10/21/24 15:32 Depression Screening Interpretation: Positive (no suicidal thoughts) Depression Screening Follow-up: Existing condition, In treatment and Follow-up Visit Requested Thrive Assessment: Date of Thrive Assessment Date Thrive assessed 10/21/24 10/21/24 15:23 Currently or been in a relationship where the following occur: No concerns reported Resp Effort & Inspection: normal respiratory effort Auscultation: clear to auscultation bilaterally Cardio Jugular venous distension: no JVD Rate: regular rate Rhythm: regular rhythm Heart sounds: S1 normal heart sound present and S2 normal heart sound present Extrem General: Yes full ROM Office Meds cyanocobalamin (vitamin B-12) 1,000 mcg/mL injection solution Performing Provider: Lucia Severino MD Performing Location: [facility] Administered by: Cheyenne Valladraes LPN on 10/21/24 15:32 Dose Route Admin Location Dispensed Lot Number Expiration Date FORMERLY NAMED [facility] Certified Meeting Professional 1,000 mcg IM left deltoid 1 mL [id number] 07/27/25 31567-715-90 [employer] Results AMB Hemoglobin A1c AMB Hemoglobin A1c 6.3 % Last Edit by BRANDON Henderson on 10/21/24 15:2 4 Results Reviewed Results Reviewed: Laboratory Last Values Hgb A1c (Clinic) 6.3 % (4.0-6.0) H 10/21/24 15:12 Coding Level of Care Code Est Pt Level 4 (27630) Complex EM visit Add On G2211 Diagnoses Pernicious anemia D51.0 Type 2 diabetes mellitus without complication, without long-term current use of insulin E11.9 Diabetes mellitus type: type 2 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 use: without intermodal owner operator truck driver use Diabetes mellitus complication status: without complication Chronic obstructive pulmonary disease, unspecified COPD type J44.9 COPD type: unspecified COPD Essential hypertension I10 Dyslipidemia E78.5 Moderate recurrent major depression F33.1 Additional Codes FUNMILAYO-7 Assessment Billing - FUNMILAYO-7 Assessment Tool: FUNMILAYO-7 Assessment 10767 ([id number]) PHQ-9 - 81281 - PHQ-9 Billing: Yes ([id number]) Vital Signs *Quality* - CPT code: 38073 - 4-10 Minutes ([id number]) Time Spent (min) 24 Assessment & Plan Assessment & Plan (1) Pernicious anemia: Code(s): D51.0 - Vitamin B12 deficiency anemia due to intrinsic factor deficiency Category: Medical (2) Diabetes mellitus: Code(s): E11.9 - Type 2 diabetes mellitus without complications Category: Medical Qualifiers: Diabetes mellitus type: type 2 Diabetes mellitus shelter insulin use: without intermodal owner operator truck driver use Diabetes mellitus complication status: without complication Qualified Code(s): E11.9 - Type 2 diabetes mellitus without complications (3) COPD (chronic obstructive pulmonary disease): Comment: Because of his history of smoking for many years, history of intermittent cough and wheeze, he is at risk of chronic obstructive pulmonary disease. PULMONARY FUNCTION TEST DID NOT SHOW ANY SIGNIFICANT ASTHMA /OBSTRUCTIVE AIRWAY DISORDER. HE IS BEING TREATED WITH BREO 100-25 1 INHALATION DAILY AND DOING OKAY WITHOUT ANY EXACERBATIONS. Code(s): J44.9 - Chronic obstructive pulmonary disease, unspecified Category: Medical Qualifiers: COPD type: unspecified COPD Qualified Code(s): J44.9 - Chronic obstructive pulmonary disease, unspecified (4) Essential hypertension: Code(s): I10 - Essential (primary) hypertension Category: Medical (5) Dyslipidemia: Code(s): E78.5 - Hyperlipidemia, unspecified Category: Medical (6) Moderate recurrent major depression: Code(s): F33.1 - Major depressive disorder, recurrent, moderate Category: Medical Plan Continue amlodipine for hypertension. Blood pressure goal is equal or less than 130/80. Continue atorvastatin for hyperlipidemia. LDL goal is less than 70. Continue bupropion for moderate recurrent major depression and follow-up with psychiatry. Continue vitamin B12 intramuscular once a month. Vitamin B12 levels will be repeated. Continue Breo for COPD. Advised to quit smoking. Continue metformin for diabetes. A1c goal is equal or less than 7%. Orders: Orders AMB Vitamin B12 Injection Patient Supplied Today D51.0 - Vitamin B12 deficiency anemia due to intrinsic factor deficiency Microalbumin, Random (w Creat) Today R80.9 - Proteinuria, unspecified AMB Hemoglobin A1c Today E11.9 - Type 2 diabetes mellitus without complications Vitamin B12 and Folate Today E53.8 - Deficiency of other specified B group vitamins Vitamin D 25-OH Total Today E55.9 - Vitamin D deficiency, unspecified Lipid Panel Today E78.5 - Hyperlipidemia, unspecified Comprehensive Kimberly. Panel Fast Today J44.9 - Chronic obstructive pulmonary disease, unspecified Medications: Refilled acetaminophen 1,000 mg (2 x 500 mg) PO Q6H 30 days PRN 240 tabs 2RF pain gabapentin 400 mg PO BEDTIME 90 days 90 caps 1RF
[2024-10-21 15:17] VITALS: BP 130/86; BMI 39.4
--- OUTSIDE RECORDS SUMMARY | 2024-10-21 17:12 | XMS_ITS | Clinical Summary ---
Author Organization [facility] Address [address] [place] [address] Care Team Providers Care Government Gauger Name Role Phone Rosangela Faye MORIS Primary Care Provider [phone] Source Comments PLEASE NOTE, if this patient [...] of kidney 02/13/2015 Overview (02/13/2015): CT abd/pelvis(12/03/14@ [facility]): 1) Rt sided Obstructive Uropathy with 3mm [...] 02/13/2015 Overview (02/13/2015): Incidental finding. CT abd/pelvis(12/03/14@ [facility]): 1) Rt sided Obstructive Uropathy with [...] kidney 02/10/2015 Overview (02/13/2015): Was seen in [facility] ER on 12/03/14 for Rt flank pain. [...] Industry Job Start Date Job End Date [employer] [facility] in [place]. Not on file Not on file Not [...] Plan of Treatment Not on file Insurance [facility] Agency [employer] Member Subscriber Plan / Payer (Ef fective 2015-Present) Name:Jose Irizarry Relation to Subscriber:Self Name:Jose Irizarry Payer ID:[id number] Group ID:[id number] Type:Medicaid Address: [facility] [address] [place] [address] Care Teams Government Gauger Relationship Specialty Start Date End Date Rosangela Faye FNP [address] [place] [address] PCP - General 10/23/18
== END 2024-10-21 15:38 | disposition home or self-care (01) ==
PROVIDERS: PCP Internal Medicine; Visit Provider Internal Medicine
DX: D51.0 Vitamin B12 deficiency anemia due to intrinsic factor deficiency (principal); E11.9 Type 2 diabetes mellitus without complications; J44.9 Chronic obstructive pulmonary disease, unspecified; I10 Essential (primary) hypertension; E78.5 Hyperlipidemia, unspecified; F33.1 Major depressive disorder, recurrent, moderate

== ENCOUNTER → 2024-10-21 14:53 | Outpatient (BNVA) | payer OTHER, SELFPAY | PROVIDERS: PCP Internal Medicine; Visit Provider Internal Medicine | DX: D51.0 Vitamin B12 deficiency anemia due to intrinsic factor deficiency (principal); E11.9 Type 2 diabetes mellitus without complications; J44.9 Chronic obstructive pulmonary disease, unspecified; E78.5 Hyperlipidemia, unspecified; I10 Essential (primary) hypertension; F33.1 Major depressive disorder, recurrent, moderate | CPT/HCPCS: 83036; 96127; 96372; 99212; J3420 ==

== ENCOUNTER 2025-01-22 09:19 | Outpatient (AMB) | payer OTHER, SELFPAY ==
--- NOTE | 2025-01-22 09:30 | MHC.PC.OV ---
Vital Signs 01/22/25 09:32 Height 5 ft 6 in Weight 237 lb BMI 38.2 BP 138/84 Blood Pressure Location Lt brachial Position Sitting Intake Visit Reasons: annual exam Intake Note: Patient here for a physical exam Founder Ceo & President Required: No Accompanied by: Self / Same As Patient Allergies metal Allergy (Intermediate, Uncoded 01/22/25 10:04) Rash Medication List - Last Reconciled 01/22/25 by Lucia Severino MD acetaminophen 1,000 mg (2 x 500 mg) PO Q6H PRN 30 days amlodipine 10 mg PO DAILY 90 days atorvastatin 80 mg PO BEDTIME 90 days blood sugar diagnostic (FreeStyle Lite Strips) Use 1 test strip once a day blood-glucose meter (FreeStyle Lite Meter kit) As directed bupropion HCl XL 300 mg PO DAILY cyanocobalamin (vitamin B-12) 1,000 mcg IM Q4W 1 month docusate sodium 100 mg PO BEDTIME ergocalciferol (vitamin D2) 1,250 mcg PO QWEEK 90 days famotidine (Pepcid) 20 mg PO BEDTIME fluticasone furoate-vilanterol 100-25 mcg/dose (Breo Ellipta) 1 inh inhalation DAILY 60 days gabapentin 400 mg PO BEDTIME 90 days gabapentin 300 mg PO BID 30 days hydrocortisone 2.5% (Anusol-HC) [address] BID-QID PRN hydroxyzine pamoate 25 mg PO TID lancets (FreeStyle Lancets) Use 1 lancet once a day lisinopril 40 mg PO DAILY 90 days metformin 1,000 mg PO BID 90 days mirtazapine 45 mg PO DAILY omeprazole 40 mg PO QAM pyridoxine (vitamin B6) 100 mg PO DAILY 90 days sennosides (senna) 17.2 mg (2 x 8.6 mg) PO BEDTIME sertraline 100 mg PO DAILY syringe (disposable) (BD Bulk Syringe Slip Tip) As directed Ventolin HFA 90 mcg/actuation (albuterol sulfate) 2 puffs inhalation Q4-6H PRN 30 days NS [walker As directed] walker with seat and wheels Tobacco use date assessed: 10/21/24 Dental Screening Dental Screen Date: 10/21/24 HPI HPI Comments History of Present Illness Details The patient is a 49-year-old male presenting for an annual physical examination. He manages his essential hypertension with amlodipine and lisinopril, reporting effective control. Hyperlipidemia is addressed with atorvastatin, and upcoming lab work will assess lipid levels. For major depressive disorder, the patient uses bupropion and mirtazapine, with regular psychiatric follow-up. He also takes sertraline, likely for depression. Type 2 diabetes mellitus is well-controlled with a hemoglobin A1c of 6.2%, and a October 2022 eye exam showed no diabetic retinopathy. COPD is managed with a rescue inhaler. GERD is addressed with omeprazole, and constipation with docusate. Surgical history includes kidney stone removal, vasectomy, and appendectomy. Family history includes hypertension and diabetes. - Colonoscopy performed in 2022 with a follow-up planned for 2027. - Tetanus vaccination administered in 2015, with the next dose due in 2025. - Diabetic eye exam conducted in October 2022, showing no diabetic retinopathy. - Vitamin B12 levels to be rechecked. [facility] Medical History (Updated 01/22/25 @ 11:01 by Lucia Severino MD) Morbid obesity due to excess calories Family history of pancreatic cancer Diabetes mellitus Dyspnea on exertion Somnolence, daytime Loud snoring COPD (chronic obstructive pulmonary disease) Smoker RADHA (obstructive sleep apnea) Mixed hyperlipidemia Bleeding hemorrhoid Mild recurrent major depression Wheezing Moderately severe major depression Renal calculi Chronic pain syndrome Right sided sciatica Depression GERD (gastroesophageal reflux disease) Morbid obesity Impaired glucose tolerance Dyslipidemia Essential hypertension Disc degeneration, lumbar Other spondylosis with radiculopathy, lumbar region Surgical History Hx of colonoscopy History of extraction of renal calculus History of toe surgery History of vasectomy History of appendectomy Family History Father Hypertension Sciatica Mother Stroke Hypertension Diabetes Brother Stroke Pancreatic cancer Family/Other Substance use disorder Social History Household Members: Family Housing: House Do you presently have visiting nurse or other home services: No Alcohol intake: former Comment: medicated, see MAR Patient Tobacco Use Status: Current everyday Tobacco user Tobacco use type: Cigarette Cigarettes Per Day: 2 Years Smoked: 20 e-Cigarette/Vaping Use: Never Used Second Hand Smoke Exposure: Yes Substance Use Type: Marijuana service: No Current occupational status: unemployed Cognitive needs: Yes (Cane) Hearing needs: No Vision needs: Yes Questionnaire PHQ-9 Over the last 2 weeks, how often have you been bothered by any of the following problems? 1. Little interest or pleasure in doing things: several days 2. Feeling down, depressed, or hopeless: several days 3. Trouble falling or staying asleep, or sleeping too much: not at all 4. Feeling tired or having little energy: several days 5. Poor appetite or overeating: nearly every day 6. Feeling bad about yourself - or that you are a failure or have let yourself or your family down: several days 7. Trouble concentrating on things, such as reading the newspaper or watching television: several days 8. Moving or speaking so slowly that other people could have noticed. Or the opposite - being so fidgety or restless that you have been moving around a lot more than usual: not at all 9. Thoughts that you would be better off or of hurting yourself in some way: not at all Total score: 8 Depression Screening Interpretation: Positive Depression Screening Follow-up: Existing condition, In treatment, Community Mental Health Worker F/U and Follow-up Visit Requested Depression Screening Done: Yes 47085 - PHQ-9 Billing: Yes Source: Developed by Drs. Montana Dubose, Jaleesa White, Cruz Coats and colleagues, with an educational nelda from [employer]. Thrive Questionnaire Date Thrive assessed: 01/22/25 I am a: Patient What is your living situation today?: I have a steady place to live Within the past 12 months, did the food you bought not last and you didn't have the money to get more?: Often true Within the past 12 months, did you worry whether your food would run out before you got money to buy more?: Often true Do you have trouble paying for medicines?: No Do you have trouble getting transportation to medical appointments?: No Do you have trouble paying your heating and electricity bill?: No Do you have trouble taking care of your child, family member or friend?: No Do you have trouble with day-to-day activities such as bathing, preparing meals, shopping, managing finances, etc.?: Yes Are you currently unemployed and looking for a job?: Yes Are you interested in more education?: No Please select the resources that you would like help with: Food Currently or been in a relationship where the following occur: I choose not to answer THRIVE Score: 2 AUDIT C Alcohol Use Questionnaire (AUDIT-C) 1. How often do you have a drink containing alcohol?: Never Total Score: 0 Score Reviewed/Action Taken: No FUNMILAYO-7 AMB Questionnaire FUNMILAYO-7 Date FUNMILAYO - 7 assessed: 01/22/25 Feeling nervous, anxious, or on edge: 1 = Several days Not being able to stop or control worryin = More than half the days Worrying too much about different things: 1 = Several days Trouble relaxin = Several days Being so restless that it is hard to sit still: 1 = Several days Becoming easily annoyed or irritable: 1 = Several days Feeling afraid as if something awful might happen: 2 = More than half the days Total FUNMILAYO-7 score (0-4 normal; 5-9 mild; 10-14 moderate; 15-21 severe): 9 Source: Developed by Drs. Montana Dubose, Jaleesa White, Cruz Coats and colleagues, with an educational nelda from [employer]. FUNMILAYO-7 Assessment Billing FUNMILAYO-7 Assessment Tool: FUNMILAYO-7 Assessment 17594 Review of Systems Const All systems reviewed & are unremarkable except as noted in HPI and below Card Denies chest pain at rest, Denies chest pain with activity, Denies edema, Denies irregular heart rhythm, Denies claudication, Denies dyspnea, Denies dyspnea on exertion, Denies orthopnea, Denies paroxysmal nocturnal dyspnea and Denies slow heart rate Resp Denies cough, Denies dyspnea and Denies dyspnea on exertion GI Denies abdominal pain, Denies change in bowel habits, Denies excessive flatus, Denies nausea and Denies vomiting Denies urinary hesitancy, Denies urinary incontinence and Denies urinary urgency Musc Denies abnormal gait, Denies atrophy, Denies deformity and Denies limited range of motion Skin/Breast Denies bleeding lesions, Denies changing lesions and Denies rash Neuro Denies abnormal gait, Denies behavioral changes and Denies lack of coordination Psych Denies behavioral changes Physical exam (Primary Care) Vital Signs: Last Vital Signs BP 138/84 01/22/25 09:32 BMI result Body Mass Index 38.2 BMI Assessment/Plan discussion: High BMI High, discussed plan: lifestyle, weight reduction, dietary and physical activity Tobacco/Smoking Status: Tobacco use Status Tobacco use date assessed 10/21/24 01/22/25 09:38 Patient Tobacco Use Status Current everyday Tobacco 01/22/25 09:38 Tobacco use type Cigarette 01/22/25 09:38 e-Cigarette/Vaping Use Never Used 01/22/25 09:38 Are you ready to quit: Yes Tobacco cessation counseling provided: Yes Items discussed: Nicotine replacement and QuitWorks Relapse Prevention: discussed the importance of a supportive environment, discussed extending NRT, discussed negative mood or depression after quitting, weight gain after smoking is common and discussed dietary, exercise and/or lifestyle changes Number of minutes spent counselin CPT code: 48303 - 4-10 Minutes PHQ-9: PHQ-9 Score PHQ-9: Total score 8 01/22/25 10:12 Depression Screening Interpretation: Positive Depression Screening Follow-up: Existing condition, In treatment, Community Mental Health Worker F/U and Follow-up Visit Requested Thrive Assessment: Date of Thrive Assessment Date Thrive assessed 01/22/25 01/22/25 09:38 Currently or been in a relationship where the following occur: I choose not to answer Const General: cooperative Limitations: ambulation with cane HENMT Head: Yes normal to inspection, Yes normocephalic and Yes atraumatic Ears: external ears normal Eyes General: appearance normal, both eyes and all related structures Eyelids: Yes eyelids normal Conjunctivae: conjunctivae normal Neck Neck: Yes normal visual inspection and Yes supple Resp Effort & Inspection: normal respiratory effort Auscultation: clear to auscultation bilaterally Cardio Jugular venous distension: no JVD Rate: regular rate Rhythm: regular rhythm Heart sounds: S1 normal heart sound present and S2 normal heart sound present GI Inspection: Yes normal to inspection Palpation (GI): Soft to palpation and nontender Auscultation: normal bowel sounds Skin General skin exam: no rashes or lesions noted Neuro General: no focal motor deficits Extrem General: Yes full ROM Psych Appearance: grossly normal Results AMB Hemoglobin A1c AMB Hemoglobin A1c 6.2 % Last Edit by BRANDON Henderson on 01/22/25 10:15 Results Reviewed Results Reviewed: Laboratory Last Values Hgb A1c (Clinic) 6.2 % (4.0-6.0) H 01/22/25 10:05 Coding Level of Care Code Est Pt Prev Care 40-64y(93606) Diagnoses Physical exam Z00.00 Moderate recurrent major depression F33.1 Type 2 diabetes mellitus without complication, without long-term current use of insulin E11.9 Diabetes mellitus type: type 2 Diabetes mellitus alf insulin use: without termination clerk use Diabetes mellitus complication status: without complication Chronic obstructive pulmonary disease, unspecified COPD type J44.9 COPD type: unspecified COPD Additional Codes FUNMILAYO-7 Assessment Billing - FUNMILAYO-7 Assessment Tool: FUNMILAYO-7 Assessment 75801 ([id number]) PHQ-9 - 00747 - PHQ-9 Billing: Yes ([id number]) Vital Signs *Quality* - CPT code: 08637 - 4-10 Minutes ([id number]) Time Spent (min) 35 Assessment & Plan Assessment & Plan (1) Physical exam: Code(s): Z00.00 - Encounter for general adult medical examination without abnormal findings Category: Medical (2) Moderate recurrent major depression: Code(s): F33.1 - Major depressive disorder, recurrent, moderate Category: Medical (3) Diabetes mellitus: Code(s): E11.9 - Type 2 diabetes mellitus without complications Category: Medical Qualifiers: Diabetes mellitus type: type 2 Diabetes mellitus termination clerk insulin use: without termination clerk use Diabetes mellitus complication status: without complication Qualified Code(s): E11.9 - Type 2 diabetes mellitus without complications (4) COPD (chronic obstructive pulmonary disease): Comment: Because of his history of smoking for many years, history of intermittent cough and wheeze, he is at risk of chronic obstructive pulmonary disease. PULMONARY FUNCTION TEST DID NOT SHOW ANY SIGNIFICANT ASTHMA /OBSTRUCTIVE AIRWAY DISORDER. HE IS BEING TREATED WITH BREO 100-25 1 INHALATION DAILY AND DOING OKAY WITHOUT ANY EXACERBATIONS. Code(s): J44.9 - Chronic obstructive pulmonary disease, unspecified Category: Medical Qualifiers: COPD type: unspecified COPD Qualified Code(s): J44.9 - Chronic obstructive pulmonary disease, unspecified Plan A1c eflects well-controlled type 2 diabetes, and monitoring will continue. COPD management will include the ongoing use of a rescue inhaler as needed. GERD is managed with omeprazole, and constipation with docusate. Regular follow-up and adherence to the medication regimen were emphasized. The patient will continue using a cane for stability, and regular follow-ups are planned for colonoscopy and tetanus vaccination. Vitamin levels will be reassessed: . Patient was informed and verbally consented to the use of an ambient scribe for clinic note documentation during this visit. I reviewed the patient's current chronic conditions and discussed the continuation of the existing management plans. We addressed the effective control of hypertension with amlodipine and lisinopril, and the plan to monitor hyperlipidemia with upcoming labs. Depression management with bupropion and mirtazapine was discussed, ensuring regular psychiatric follow-up. The patient's diabetes control, indicated by an A1c of 6.2%, was acknowledged as satisfactory. COPD management with a rescue inhaler was confirmed. I advised continued use of omeprazole for GERD and docusate for constipation. The importance of regular follow-up visits and adherence to medication regimens was highlighted. The patient was informed about the next steps for colonoscopy and tetanus vaccination, and the plan to reassess vitamin B12 levels. Orders: Orders AMB Hemoglobin A1c Today E11.9 - Type 2 diabetes mellitus without complications Complete Blood Count Auto Diff Today D64.9 - Anemia, unspecified Vitamin B12 and Folate Today E53.8 - Deficiency of other specified B group vitamins Comprehensive [place]. Panel Fast Today E11.9 - Type 2 diabetes mellitus without complications Intrinsic Factor Antibodies Today D51.0 - Vitamin B12 deficiency anemia due to intrinsic factor deficiency Parietal Cell Antibody Today D51.0 - Vitamin B12 deficiency anemia due to intrinsic factor deficiency Lipid Panel Today E78.5 - Hyperlipidemia, unspecified Microalbumin, Random (w Creat) Today R80.9 - Proteinuria, unspecified IRON PROFILE Today D64.9 - Anemia, unspecified Vitamin D 25-OH Total Today E55.9 - Vitamin D deficiency, unspecified Patient Instructions: - Continue taking all prescribed medications as directed. - Schedule and attend regular follow-up appointments. - Use the rescue inhaler for COPD as needed. - Maintain your current dietary and lifestyle habits. - Be vigilant for any changes in your health and report them promptly. - Follow up for your next colonoscopy in 2027 and tetanus booster in 2025. - Recheck Vitamin B12 levels as instructed.
[2025-01-22 09:32] VITALS: BP 138/84; BMI 38.2
--- OUTSIDE RECORDS SUMMARY | 2025-01-22 09:59 | XMS_ITS | Clinical Summary ---
Author Organization [facility] Address [address] [place] [address] Care Team Providers Care Patch Washer Name Role Phone Rosangela Faye MORIS Primary Care Provider [phone] Source Comments PLEASE NOTE, if this patient [...] of kidney 02/13/2015 Overview (02/13/2015): CT abd/pelvis(12/03/14@ [facility]): 1) Rt sided Obstructive Uropathy with [...] 02/13/2015 Overview (02/13/2015): Incidental finding. CT abd/pelvis(12/03/14@ [facility]): 1) Rt sided Obstructive Uropathy [...] kidney 02/10/2015 Overview (02/13/2015): Was seen in [facility] ER on 12/03/14 for Rt flank [...] reflux disease) 5 Marijuana smoker 02/10/2015 Immunizations Immunization Administration Dates Next Due Hep B, Adult/Adol [...] Industry Job Start Date Job End Date [facility] in [place]. Not on file Not on file Not [...] Plan of Treatment Not on file Insurance [facility] [employer] Member Subscriber Plan / Payer (Ef fective 2015-Present) Name:Jose Irizarry Relation to Subscriber:Self Name:Jose Irizarry Payer ID:[id number] Group ID:[id number] Type:Medicaid Address: [facility] [address] [place] [address] Care Teams Patch Washer Relationship Specialty Start Date End Date Rosangela Faye FNP [address] [place] [address] PCP - General 10/23/18
== END 2025-01-22 10:18 | disposition home or self-care (01) ==
LOC: HO.HMCH 09:20
PROVIDERS: PCP Internal Medicine; Visit Provider Internal Medicine
DX: Z00.00 Encounter for general adult medical examination without abnormal findings (principal); F33.1 Major depressive disorder, recurrent, moderate; E11.9 Type 2 diabetes mellitus without complications; J44.9 Chronic obstructive pulmonary disease, unspecified

== ENCOUNTER → 2025-01-22 09:19 | Outpatient (BNVA) | payer OTHER, SELFPAY | PROVIDERS: PCP Internal Medicine; Visit Provider Internal Medicine | DX: Z00.00 Encounter for general adult medical examination without abnormal findings (principal); F33.1 Major depressive disorder, recurrent, moderate; E11.9 Type 2 diabetes mellitus without complications; J44.9 Chronic obstructive pulmonary disease, unspecified; I10 Essential (primary) hypertension; E78.5 Hyperlipidemia, unspecified; K21.9 Gastro-esophageal reflux disease without esophagitis; K59.00 Constipation, unspecified; Z79.899 Other long term (current) drug therapy; Z13.30 Encounter for screening examination for mental health and behavioral disorders, unspecified; Z13.31 Encounter for screening for depression | CPT/HCPCS: 83036; 96127; 99396 ==

== ENCOUNTER 2025-03-20 12:17 | Outpatient (REF) | payer OTHER, SELFPAY ==
[2025-03-20 12:30] LABS: MANUAL DIFF FLAG NO
[2025-03-20 13:00] LABS: Hematocrit 39.8 % (42.0-52.0); Hemoglobin 13.3 g/dl (14.0-18.0); Imm Gran Abs Auto 0.04 X10*3/uL (0.00-0.03); Imm Gran Pct Auto 0.4 % (0.0-0.4); Lymphocytes Absolute Auto 4.3 X10*3/uL (1.2-4.9); Mean Corpuscular HGB Conc 33.4 g/dl (31.0-36.0); Mean Corpuscular Hemoglobin 28.1 pg (27.0-33.0); Mean Corpuscular Volume 84.1 fL (80.0-98.0); NRBC Abs Auto 0.000 X10*3/uL (0.0-0.012); NRBC Pct Auto 0.0 /100WBC (0.0-0.2); Platelet Count 419 X10*3/uL (160-400); Red Blood Count 4.73 X10*6/uL (4.60-5.80); White Blood Count 10.8 X10*3/uL (4.8-10.8)
[2025-03-20 13:30] LABS: Alanine Aminotransferase 22 U/L (0-40); Albumin Level 4.2 g/dL (3.5-5.0); Alkaline Phosphatase 115 U/L (39-117); Anion Gap 11 (12-20); Aspartate Amino Transferase 19 U/L (5-37); Blood Urea Nitrogen 10 mg/dL (9-16); Calcium 9.0 mg/dL (8.4-10.2); Carbon Dioxide 29 mmol/L (22-29); Chloride 107 mmol/L (96-108); Cholesterol 137 mg/dL (<200); Estimated Glomerular Filt Rate > 60; HDL Cholesterol 25 mg/dL (>40); Iron 50 mcg/dL (45-160); Percent Iron Saturation 18 % (15-50); Potassium 3.8 mmol/L (3.3-5.1); Sodium 143 mmol/L (135-145); Total Iron Binding Capacity 277 mcg/dL (228-428); Total Protein 6.5 g/dL (6.5-8.0); Triglycerides 229 mg/dL (<150); Unsaturated Iron Binding 227 ug/dL
[2025-03-20 13:50] LABS: Microalbum/Creatinine Ratio Ur 6.9 ug/mg cr (<30)
[2025-03-20 14:58] LABS: Folate 4.3 ng/mL (> or = 4.0); Vitamin B12 217 pg/mL (200-900)
[2025-03-23 22:14] LABS: Intrinsic Factor Antibodies Negative (Negative)
== END 2025-03-20 12:18 | disposition home or self-care (01) ==
LOC: HO.LAB 12:17
PROVIDERS: PCP Internal Medicine; Visit Provider Internal Medicine
DX: E11.9 Type 2 diabetes mellitus without complications (principal); E78.5 Hyperlipidemia, unspecified; D64.9 Anemia, unspecified; D51.0 Vitamin B12 deficiency anemia due to intrinsic factor deficiency; R80.9 Proteinuria, unspecified
CPT/HCPCS: 36415; 80053; 80061; 82043; 82306; 82570; 82607; 82746; 83516; 83540; 85025; 86340

== ENCOUNTER 2025-04-07 10:43 | Outpatient (AMB) | payer OTHER, SELFPAY ==
[2025-04-07 10:57] VITALS: BP 110/72; PULSE 99; O2SAT 97; BMI 39.5
--- NOTE | 2025-04-07 10:57 | MHC.OFFVIS ---
Vital Signs 04/07/25 10:57 Height 5 ft 6 in Weight 244 lb 11.41 oz BMI 39.5 BP 110/72 Blood Pressure Location Lt brachial Position Sitting Pulse 99 Pulse Source Pulse Oximeter Pulse Oximetry (%) 97 Oxygen Delivery Method Room Air Intake Visit Reasons: asthma Intake Note: pt is here for follow up and states his feeling is good. Slot Operations Manager Required: No Allergies metal Allergy (Intermediate, Uncoded 04/07/25 11:04) Rash [facility] Medical History Morbid obesity due to excess calories Family history of pancreatic cancer Diabetes mellitus Dyspnea on exertion Somnolence, daytime Loud snoring COPD (chronic obstructive pulmonary disease) Smoker RADHA (obstructive sleep apnea) Mixed hyperlipidemia Bleeding hemorrhoid Mild recurrent major depression Wheezing Moderately severe major depression Renal calculi Chronic pain syndrome Right sided sciatica Depression GERD (gastroesophageal reflux disease) Morbid obesity Impaired glucose tolerance Dyslipidemia Essential hypertension Disc degeneration, lumbar Other spondylosis with radiculopathy, lumbar region Surgical History Hx of colonoscopy History of extraction of renal calculus History of toe surgery History of vasectomy History of appendectomy Family History Father Hypertension Sciatica Mother Stroke Hypertension Diabetes Brother Stroke Pancreatic cancer Family/Other Substance use disorder Social History (Updated 04/07/25 @ 11:07 by Marion Sierra Enedelia) Household Members: Family Housing: House Do you presently have visiting nurse or other home services: No Alcohol intake: former Comment: medicated, see MAR Patient Tobacco Use Status: Current everyday Tobacco user Tobacco use type: Cigarette Cigarettes Per Day: 1 Years Smoked: 20 e-Cigarette/Vaping Use: Never Used Second Hand Smoke Exposure: Yes Substance Use Type: Marijuana service: No Current occupational status: unemployed Cognitive needs: Yes (Cane) Hearing needs: No Vision needs: Yes Coding
--- NOTE | 2025-04-07 11:10 | A.OFFVIS_ITS ---
Vital Signs 04/07/25 10:57 Height 5 ft 6 in Weight 244 lb 11.41 oz BMI 39.5 BP 110/72 Blood Pressure Location Lt brachial Position Sitting Pulse 99 Pulse Source Pulse Oximeter Pulse Oximetry (%) 97 Oxygen Delivery Method Room Air Intake Visit Reasons: asthma Allergies metal Allergy (Intermediate, Uncoded 04/07/25 11:14) Rash Medication List - Last Reconciled 04/07/25 by Bobby Ralph MD acetaminophen 1,000 mg (2 x 500 mg) PO Q6H PRN 30 days amlodipine 10 mg PO DAILY 90 days atorvastatin 80 mg PO BEDTIME 90 days blood sugar diagnostic (FreeStyle Lite Strips) Use 1 test strip once a day blood-glucose meter (FreeStyle Lite Meter kit) As directed bupropion HCl XL 300 mg PO DAILY ergocalciferol (vitamin D2) 1,250 mcg PO QWEEK 90 days famotidine (Pepcid) 20 mg PO BEDTIME fluticasone furoate-vilanterol 100-25 mcg/dose (Breo Ellipta) 1 inh inhalation DAILY 60 days gabapentin 300 mg PO BID 30 days gabapentin 400 mg PO BEDTIME 90 days hydrocortisone 2.5% (Anusol-HC) 1 appl [place] BID-QID PRN hydroxyzine pamoate 25 mg PO TID lancets (FreeStyle Lancets) Use 1 lancet once a day lisinopril 40 mg PO DAILY 90 days metformin 1,000 mg PO BID 90 days mirtazapine 45 mg PO DAILY omeprazole 40 mg PO QAM pyridoxine (vitamin B6) 100 mg PO DAILY 90 days sertraline 100 mg PO DAILY syringe (disposable) (BD Bulk Syringe Slip Tip) As directed Ventolin HFA 90 mcg/actuation (albuterol sulfate) 2 puffs inhalation Q4-6H PRN 30 days NS [walker As directed] walker with seat and wheels Do you need a note to return to daycare/school/sports/work: No HPI HPI asthma: Details: This 50 years old gentleman grossly obese, with history of obstructive sleep apnea, which was very mild and he is treating with conservative measures. Also has mild chronic obstructive pulmonary disease related to his previous smoking, He is here for 6 months follow-up. Weight unchanged, as he is not able to do much exercise. Claims that his breathing has remained very good and stable, he has used albuterol only once in a while, last usage about a week ago. He does use Breo 100-251 inhalation daily regularly. He is not able to lose much weight because he can not do exercise, due to his impaired locomotion cause by diabetic neuropathy. He has past history of smoking but quit a few years ago. Now he smokes only 1 or 2 cigarettes a day. [facility] Medical History (Updated 04/07/25 @ 11:36 by Bobby Ralph MD) Obesity (BMI 30-39.9) Morbid obesity due to excess calories Family history of pancreatic cancer Diabetes mellitus Dyspnea on exertion Somnolence, daytime Loud snoring COPD (chronic obstructive pulmonary disease) Smoker RADHA (obstructive sleep apnea) Mixed hyperlipidemia Bleeding hemorrhoid Mild recurrent major depression Wheezing Moderately severe major depression Renal calculi Chronic pain syndrome Right sided sciatica Depression GERD (gastroesophageal reflux disease) Morbid obesity Impaired glucose tolerance Dyslipidemia Essential hypertension Disc degeneration, lumbar Other spondylosis with radiculopathy, lumbar region Surgical History Hx of colonoscopy History of extraction of renal calculus History of toe surgery History of vasectomy History of appendectomy Family History Father Hypertension Sciatica Mother Stroke Hypertension Diabetes Brother Stroke Pancreatic cancer Family/Other Substance use disorder Social History Household Members: Family Housing: House Do you presently have visiting nurse or other home services: No Alcohol intake: former Comment: medicated, see MAR Patient Tobacco Use Status: Current everyday Tobacco user Tobacco use type: Cigarette Cigarettes Per Day: 2 Years Smoked: 20 e-Cigarette/Vaping Use: Never Used Second Hand Smoke Exposure: Yes Substance Use Type: Marijuana service: No Current occupational status: unemployed Cognitive needs: Yes (Cane) Hearing needs: No Vision needs: Yes Review of Systems Const All systems reviewed & are unremarkable except as noted in HPI and below Eyes Reports no additional complaints ENT Denies nasal congestion and Denies nasal discharge Card Denies chest pain, Denies irregular heart rhythm and Denies leg edema Resp Reports as per HPI GI Reports constipation and Reports heartburn Reports no additional complaints Musc Reports back pain Skin/Breast Reports system reviewed and no additional complaints, except as documented Neuro Reports no additional complaints and Reports radicular pain Psych Reports depression (Has had major depression a few times) Endo Reports other (Has borderline diabetes mellitus and hyperlipidemia) Physical Exam Vital Signs: Last Vital Signs Pulse 99 04/07/25 10:57 BP 110/72 04/07/25 10:57 Pulse Ox 97 04/07/25 10:57 Oxygen Delivery Method Room Air 04/07/25 10:57 BMI result Body Mass Index 39.5 Const Other: He is grossly overweight General: comfortable, no acute distress, alert and awake Orientation/consciousness: patient oriented x3 HEENT Head: Yes normal to inspection General nose exam: No nasal polyps present and No nasal discharge present Face and sinus: Yes sinuses nontender Mouth: oropharynx abnormals (Oropharynx is crowded and narrow, Mallampati class 4) Throat: Yes posterior oropharynx normal Eyes General: appearance normal, both eyes and all related structures Neck Neck: Yes normal visual inspection, Yes no lymphadenopathy, Yes trachea midline, Yes no JVD and Yes other (Neck circumference 17-1/2 inch) Thyroid: Thyroid normal Chest Chest palpation & inspection: normal inspection of the chest, normal palpation of entire chest wall and no tenderness Resp Effort & Inspection: normal respiratory effort Auscultation: clear to auscultation bilaterally, no crackles, no rhonchi and no wheezes Cardio Palpation: normal PMI Rate: regular rate Rhythm: regular rhythm Heart sounds: no gallops and no murmurs Peripheral pulses: Peripheral pulses 2+ throughout GI Palpation (GI): Soft to palpation, Tenderness to palpation present (GI), No hepatosplenomegaly present, Palpable mass present and Other GI palpation findings present (Abdomen is moderately obese and protuberant) Auscultation: normal bowel sounds Back/Spine/Pelvis Thoracic/Lumbar Spine: thoracic and lumbar spine normal to inspection, thoraco- lumbar ROM limited and thoraco-lumbar spasm Skin General skin exam: no rashes or lesions noted Neuro General: patient oriented x3, No gait normal (Slightly impaired due to back pain, uses cane) and no focal motor deficits Cranial nerves: Yes CN's II-XII intact bilaterally Extrem General: Yes normal to inspection, Yes no clubbing, cyanosis or edema and Yes no calf tenderness Psych Mental Status: mental status grossly normal Speech and movement: Normal speech and movement present Office Procedures Spirometry Testing Spirometry Comments: In office spirometry completed with results given to Dr Ralph. 57[address]- Spirometry Results Reviewed Results Reviewed: SPIROMETRY 202204/07/25 FVC 79 % 86 % FEV1 76 % 84 % FEF 25-75 62 % 78 % Assessment & Plan Assessment & Plan (1) Obesity (BMI 30-39.9): Comment: HE REMAINS GROSSLY OBESE, BUT AT LEAST HE IS NOT PUTTING ON MORE WEIGHT. BEING DIABETIC HE IS WATCHING HIS DIET. DUE TO PERIPHERAL NEUROPATHY AND IMPAIRED LOCOMOTION HE IS NOT ABLE TO WALK MUCH. Code(s): E66.9 - Obesity, unspecified Category: Medical Plan: ALERTED ABOUT HIS WEIGHT AND ADVISED TO KEEP THE INTAKE OF CARBOHYDRATES LOW POSSIBLE AND ALSO TRY TO CUT DOWN THE PORTIONS. (2) RADHA (obstructive sleep apnea): Comment: PER SLEEP STUDY HE HAS ONLY MILD OBSTRUCTIVE SLEEP APNEA . WE ARE TRYING TO TREAT HIM WITH CONSERVATIVE MEASURES INCLUDING WEIGHT REDUCTION AND ALSO POSITION THERAPY. HE SEEMS TO BE DOING WELL AND AT PRESENT DOES NOT HAVE ANY SIGNIFICANT SYMPTOMS OF RADHA. Code(s): G47.33 - Obstructive sleep apnea (adult) (pediatric) Category: Medical Plan: AGAIN REINFORCED, TO SLEEP IN LATERAL POSITIONS. TO LOSE WEIGHT SLOWLY (3) Asthma: Comment: HE HAS MILD INTERMITTENT WHEEZING, PROBABLY RELATED TO HIS BEING OVERWEIGHT AND ALSO DUE TO SMOKING. PULMONARY FUNCTION TEST SHOWED ONLY MINIMAL OBSTRUCTIVE AIRWAY DISORDER. SPIROMETRY TODAY IS ESSENTIALLY NORMAL AND, ACTUALLY SHOWS SOME IMPROVEMENT COMPARED TO 2022. Code(s): J45.909 - Unspecified asthma, uncomplicated Category: Medical Plan: CONTINUE TO USE BREO 100-251 INHALATION DAILY HE HAS NOT NEEDED TO USE ANY RESCUE INHALER. (4) Smoker: Comment: History of longstanding smoking but trying to cut down , currently smoking only 1-2 cigarettes a day. Code(s): F17.200 - Nicotine dependence, unspecified, uncomplicated Category: Social Hx Plan: ENCOURAGED TO STOP SMOKING COMPLETELY Orders: Orders AMB Spirometry Testing Today J44.9 - Chronic obstructive pulmonary disease, unspecified Coding Level of Care Code Est Pt Level 3 (03814) Diagnoses Obesity (BMI 30-39.9) E66.9 RADHA (obstructive sleep apnea) G47.33 Asthma J45.909 Smoker F17.200 CPT Codes Spirometry - CPT: 16737- Spirometry ([id number])
--- OUTSIDE RECORDS SUMMARY | 2025-04-07 11:26 | XMS_ITS | Clinical Summary ---
Author Organization [facility] Address [address] [place] [address] Care Team Providers Care Construction Administrator Name Role Phone Rosangela Faye MORIS Primary Care Provider [phone] Source Comments PLEASE NOTE, if this patient [...] of kidney 02/13/2015 Overview (02/13/2015): CT abd/pelvis(12/03/14@ [facility]): 1) Rt sided Obstructive Uropathy with 3mm [...] 02/13/2015 Overview (02/13/2015): Incidental finding. CT abd/pelvis(12/03/14@ [facility]): 1) Rt sided Obstructive Uropathy with [...] kidney 02/10/2015 Overview (02/13/2015): Was seen in [facility] ER on 12/03/14 for Rt flank [...] Administration Dates Next Due Hep B, Adult/Adol ([id number]/RECOMBIVAX-AD ULT) 05/07/2015 Family History Medical History Relation Name Comments [...] Industry Job Start Date Job End Date [employer] in [place]. Not on file Not on file Not on file Last Filed Vital Signs Vital Sign Reading Time Taken Comments Blood Pressure 120/78 05/07/2015 3:50 PM EDT Pulse 64 05/07/2015 3:50 PM EDT Temperature 36.7 C (98.1 F) 05/07/2015 3:50 PM EDT Respiratory Rate 18 05/07/2015 3:50 PM EDT Oxygen Saturation - - Inhaled Oxygen Concentration - - Weight 108.9 kg (240 lb) 05/07/2015 3:50 PM EDT Height 167.6 cm (5' 6 ) 05/07/2015 3:50 PM EDT Body Mass Index 38.74 05/07/2015 3:50 PM EDT Plan of Treatment Not on file Insurance [facility] [employer] PLAN Member Subscriber Plan / Payer (Ef fective 2015-Present) Name:Jose Irizarry Relation to Subscriber:Self Name:Jose Irizarry Payer ID:[id number] Group ID:[id number] Type:Medicaid Address: [facility] [address] [place] [address] Care Teams Construction Administrator Relationship Specialty Start Date End Date Rosangela Faye FNP [address] [place] [address] PCP - General 10/23/18
== END 2025-04-07 11:31 | disposition home or self-care (01) ==
LOC: HO.HPS 10:44
PROVIDERS: PCP Internal Medicine; Visit Provider Internal Medicine
DX: E66.9 Obesity, unspecified (principal); G47.33 Obstructive sleep apnea (adult) (pediatric); J45.909 Unspecified asthma, uncomplicated; F17.200 Nicotine dependence, unspecified, uncomplicated
CPT/HCPCS: 94010; 99213

== ENCOUNTER → 2025-04-07 10:43 | Outpatient (BNVA) | payer OTHER, SELFPAY | PROVIDERS: PCP Internal Medicine; Visit Provider Internal Medicine | DX: E66.01 Morbid (severe) obesity due to excess calories (principal); G47.33 Obstructive sleep apnea (adult) (pediatric); J44.9 Chronic obstructive pulmonary disease, unspecified; J45.909 Unspecified asthma, uncomplicated; F17.200 Nicotine dependence, unspecified, uncomplicated | CPT/HCPCS: 94010; 99212 ==

== ENCOUNTER 2025-05-05 09:45 | Outpatient (REF) | payer OTHER, SELFPAY ==
--- NOTE | ~2025-05-05 | US_ITS ---
EXAMINATION: US KIDNEY BILATERAL HISTORY: Z87.442 - Personal history of urinary calculi TECHNIQUE: Real-time grayscale ultrasound imaging of the kidneys was performed and images were reviewed. COMPARISON: Comparison is made with the prior examination dated 03/28/2024. FINDINGS: Right kidney: The right kidney measures 10.9 x 5.2 x 5.6 cm. Renal parenchymal echotexture and thickness are normal. There are no masses. There is no hydronephrosis or renal calculi. Left Kidney: The left kidney measures 11.1 x 5.5 x 5.2 cm. Renal parenchymal echotexture and thickness are normal. There are no masses. There is no hydronephrosis or renal calculi. US/US renal BI IMPRESSION: Unremarkable renal ultrasound. Electronically signed by: Montnaa Dai MD 05/05/2025 10:23 AM EDT
== END 2025-05-05 09:46 | disposition home or self-care (01) ==
LOC: HO.US 09:45
PROVIDERS: PCP Internal Medicine; Visit Provider Urology
DX: Z87.442 Personal history of urinary calculi (principal)
CPT/HCPCS: 76775

== ENCOUNTER → 2025-05-05 09:48 | Outpatient (BNV) | payer OTHER, SELFPAY | PROVIDERS: PCP Internal Medicine; Visit Provider Radiology Diagnostic Radiology | DX: Z87.442 Personal history of urinary calculi (principal) | CPT/HCPCS: 76775 ==

== ENCOUNTER 2025-06-02 09:59 | Outpatient (AMB) | payer OTHER, SELFPAY ==
[2025-06-02 10:03] VITALS: BP 140/98; PULSE 80; RESP 18; O2SAT 96; BMI 39.4
--- NOTE | 2025-06-02 10:03 | MHC.PC.OV ---
Vital Signs 06/02/25 10:03 Height 5 ft 6 in Weight 244 lb BMI 39.4 BP 140/98 H Blood Pressure Location Lt brachial Position Sitting Respiration 18 Pulse 80 Pulse Source Pulse Oximeter Temp Source Temporal Artery Scan Pulse Oximetry (%) 96 Oxygen Delivery Method Room Air Intake Visit Reasons: dm Record Librarian Required: No Accompanied by: Self / Same As Patient Allergies metal Allergy (Intermediate, Uncoded 06/02/25 10:41) Rash Medication List - Last Reconciled 06/02/25 by Lucia Severino MD acetaminophen 1,000 mg (2 x 500 mg) PO Q6H PRN 30 days amlodipine 10 mg PO DAILY 90 days atorvastatin 80 mg PO BEDTIME 90 days blood sugar diagnostic (FreeStyle Lite Strips) Use 1 test strip once a day blood-glucose meter (FreeStyle Lite Meter kit) As directed bupropion HCl XL 300 mg PO DAILY ergocalciferol (vitamin D2) 1,250 mcg PO QWEEK 90 days famotidine (Pepcid) 20 mg PO BEDTIME fluticasone furoate-vilanterol 100-25 mcg/dose (Breo Ellipta) 1 inh inhalation DAILY 60 days gabapentin 400 mg PO BEDTIME 90 days gabapentin 300 mg PO BID 30 days hydrocortisone 2.5% (Anusol-HC) 1 appl [place] BID-QID PRN hydroxyzine pamoate 25 mg PO TID lancets (FreeStyle Lancets) Use 1 lancet once a day lisinopril 40 mg PO DAILY 90 days metformin 1,000 mg PO BID 90 days mirtazapine 45 mg PO DAILY omeprazole 40 mg PO QAM pyridoxine (vitamin B6) 100 mg PO DAILY 90 days sertraline 100 mg PO DAILY syringe (disposable) (BD Bulk Syringe Slip Tip) As directed Ventolin HFA 90 mcg/actuation (albuterol sulfate) 2 puffs inhalation Q4-6H PRN 30 days NS [walker As directed] walker with seat and wheels Tobacco use date assessed: 06/02/25 Dental Screening Dental Screen Date: 06/02/25 Did you have a dental visit in the last 12 months?: No Did you have a dental problem in the last 6 months where you did not have access to dental care?: No Was dental information given to patient?: No HPI HPI Comments History of Present Illness Details The patient is a 50-year-old male presenting with a follow-up for chronic conditions including diabetes, hypertension, hyperlipidemia, and depression. Diabetes Mellitus has been well-controlled with an A1C of 6.3, indicating good glycemic control. The patient is on metformin as part of the management plan. Hypertension management has been inconsistent, with occasional elevated blood pressure readings due to missed doses of medication. The patient is prescribed amlodipine and lisinopril for blood pressure control. Hyperlipidemia is well-managed with atorvastatin, with recent LDL levels below 70 mg/dL. The patient has a history of depression, managed with bupropion, mirtazapine, and sertraline. Chronic Obstructive Pulmonary Disease (COPD) is managed with Breo, which the patient uses daily. Neuropathy presents as a sensation of pins and needles in the feet, managed with gabapentin. The patient has a history of coronary artery disease. The patient reports a metal allergy causing rash. [facility] Medical History Obesity (BMI 30-39.9) Morbid obesity due to excess calories Family history of pancreatic cancer Diabetes mellitus Dyspnea on exertion Somnolence, daytime Loud snoring COPD (chronic obstructive pulmonary disease) Smoker RADHA (obstructive sleep apnea) Mixed hyperlipidemia Bleeding hemorrhoid Mild recurrent major depression Wheezing Moderately severe major depression Renal calculi Chronic pain syndrome Right sided sciatica Depression GERD (gastroesophageal reflux disease) Morbid obesity Impaired glucose tolerance Dyslipidemia Essential hypertension Disc degeneration, lumbar Other spondylosis with radiculopathy, lumbar region Surgical History Hx of colonoscopy History of extraction of renal calculus History of toe surgery History of vasectomy History of appendectomy Family History Father Hypertension Sciatica Mother Stroke Hypertension Diabetes Brother Stroke Pancreatic cancer Family/Other Substance use disorder Social History Household Members: Family Housing: House Do you presently have visiting nurse or other home services: No Alcohol intake: former Comment: medicated, see MAR Patient Tobacco Use Status: Current everyday Tobacco user Tobacco use type: Cigarette Cigarettes Per Day: 2 Years Smoked: 20 e-Cigarette/Vaping Use: Never Used Second Hand Smoke Exposure: Yes Substance Use Type: Marijuana service: No Current occupational status: unemployed Cognitive needs: Yes (Cane) Hearing needs: No Vision needs: Yes Questionnaire Thrive Questionnaire Date Thrive assessed: 01/15/25 I am a: Patient What is your living situation today?: I have a steady place to live Within the past 12 months, did the food you bought not last and you didn't have the money to get more?: Often true Within the past 12 months, did you worry whether your food would run out before you got money to buy more?: Often true Do you have trouble paying for medicines?: No Do you have trouble getting transportation to medical appointments?: No Do you have trouble paying your heating and electricity bill?: No Do you have trouble taking care of your child, family member or friend?: No Do you have trouble with day-to-day activities such as bathing, preparing meals, shopping, managing finances, etc.?: Yes Are you currently unemployed and looking for a job?: Yes Are you interested in more education?: No Please select the resources that you would like help with: Food Currently or been in a relationship where the following occur: I choose not to answer THRIVE Score: 2 AUDIT C Alcohol Use Questionnaire (AUDIT-C) 2. How many drinks containing alcohol do you have on a typical day when you are drinking?: 1 or 2 3. How often do you have six or more drinks on one occasion?: Never Total Score: 0 FUNMILAYO-7 AMB Questionnaire FUNMILAYO-7 Date FUNMILAYO - 7 assessed: 01/22/25 Source: Developed by Drs. Montana Dubose, Jaleesa White, Cruz Coats and colleagues, with an educational nelda from [employer]. Review of Systems Const All systems reviewed & are unremarkable except as noted in HPI and below Card Denies chest pain at rest, Denies chest pain with activity, Denies edema, Denies irregular heart rhythm, Denies claudication, Denies dyspnea, Denies dyspnea on exertion, Denies orthopnea, Denies paroxysmal nocturnal dyspnea and Denies slow heart rate Resp Denies cough, Denies dyspnea and Denies dyspnea on exertion Physical exam (Primary Care) Vital Signs: Last Vital Signs Pulse 80 06/02/25 10:03 Resp 18 06/02/25 10:03 BP 140/98 H 06/02/25 10:03 Pulse Ox 96 06/02/25 10:03 Oxygen Delivery Method Room Air 06/02/25 10:03 BMI result Body Mass Index 39.4 BMI Assessment/Plan discussion: High BMI High, discussed plan: lifestyle, weight reduction, dietary and physical activity Tobacco/Smoking Status: Tobacco use Status Tobacco use date assessed 06/02/25 06/02/25 10:06 Patient Tobacco Use Status Current everyday Tobacco 06/02/25 10:06 Tobacco use type Cigarette 06/02/25 10:06 e-Cigarette/Vaping Use Never Used 06/02/25 10:06 Thrive Assessment: Date of Thrive Assessment Date Thrive assessed 01/15/25 06/02/25 10:06 Currently or been in a relationship where the following occur: I choose not to answer Resp Effort & Inspection: normal respiratory effort Auscultation: clear to auscultation bilaterally Cardio Jugular venous distension: no JVD Rate: regular rate Rhythm: regular rhythm Heart sounds: S1 normal heart sound present and S2 normal heart sound present Extrem General: Yes full ROM Coding Level of Care Code Est Pt Level 4 (68880) Complex EM visit Add On G2211 Diagnoses Moderate recurrent major depression F33.1 Essential hypertension I10 Mixed hyperlipidemia E78.2 Type 2 diabetes mellitus without complication, without long-term current use of insulin E11.9 Diabetes mellitus type: type 2 Diabetes mellitus correction insulin use: without terminal superintendent use Diabetes mellitus complication status: without complication Chronic obstructive pulmonary disease, unspecified COPD type J44.9 COPD type: unspecified COPD Time Spent (min) 23 Assessment & Plan Assessment & Plan (1) Moderate recurrent major depression: Code(s): F33.1 - Major depressive disorder, recurrent, moderate Category: Medical (2) Essential hypertension: Code(s): I10 - Essential (primary) hypertension Category: Medical (3) Mixed hyperlipidemia: Code(s): E78.2 - Mixed hyperlipidemia Category: Medical (4) Diabetes mellitus: Code(s): E11.9 - Type 2 diabetes mellitus without complications Category: Medical Qualifiers: Diabetes mellitus type: type 2 Diabetes mellitus correction insulin use: without terminal superintendent use Diabetes mellitus complication status: without complication Qualified Code(s): E11.9 - Type 2 diabetes mellitus without complications (5) COPD (chronic obstructive pulmonary disease): Comment: Because of his history of smoking for many years, history of intermittent cough and wheeze, he is at risk of chronic obstructive pulmonary disease. PULMONARY FUNCTION TEST DID NOT SHOW ANY SIGNIFICANT ASTHMA /OBSTRUCTIVE AIRWAY DISORDER. HE IS BEING TREATED WITH BREO 100-25 1 INHALATION DAILY AND DOING OKAY WITHOUT ANY EXACERBATIONS. Code(s): J44.9 - Chronic obstructive pulmonary disease, unspecified Category: Medical Qualifiers: COPD type: unspecified COPD Qualified Code(s): J44.9 - Chronic obstructive pulmonary disease, unspecified Plan Plan Patient was informed and verbally consented to the use of an ambient scribe for clinic note documentation during this visit. 1. Diabetes Mellitus The patient's diabetes is well-controlled with an A1C of 6.3. Continue current management with metformin and monitor A1C every 4 months. 2. Hypertension The patient has occasional elevated blood pressure readings due to missed medication doses. Reinforce adherence to amlodipine and lisinopril, and monitor blood pressure regularly. 3. Hyperlipidemia Hyperlipidemia is well-managed with atorvastatin, with LDL levels below 70 mg/dL. Continue current therapy and recheck lipid panel in 4 months. 4. Depression Depression is managed with bupropion, mirtazapine, and sertraline. Continue current medications and assess mood at follow-up visits. 5. Chronic Obstructive Pulmonary Disease (Copd) COPD is managed with daily use of Breo. Encourage continued adherence and assess respiratory status at follow-up. 6. Neuropathy Neuropathy presents as pins and needles sensation in the feet, managed with gabapentin. Reinforce adherence to medication and monitor symptoms. 7. Coronary Artery Disease The patient has a history of coronary artery disease. Continue monitoring and manage risk factors such as hypertension and hyperlipidemia. Orders: Orders Lipid Panel 4 Months E78.5 - Hyperlipidemia, unspecified Vitamin D 25-OH Total 4 Months E55.9 - Vitamin D deficiency, unspecified AMB Hemoglobin A1c Today E11.9 - Type 2 diabetes mellitus without complications Microalbumin, Random (w Creat) 4 Months R80.9 - Proteinuria, unspecified Complete Blood Count Auto Diff 4 Months D64.9 - Anemia, unspecified IRON PROFILE 4 Months D64.9 - Anemia, unspecified Vitamin B12 and Folate 4 Months E53.8 - Deficiency of other specified B group vitamins Comprehensive [place]. Panel Fast 4 Months E11.9 - Type 2 diabetes mellitus without complications Medications: Refilled gabapentin 300 mg PO BID 60 caps 2RF 30 days gabapentin 400 mg PO BEDTIME 90 caps 1RF 90 days
--- OUTSIDE RECORDS SUMMARY | 2025-06-02 11:33 | XMS_ITS | Clinical Summary ---
Author Organization [facility] Address [address] [place] [address] Care Team Providers Care Analytic Programmer Name Role Phone Rosangela Faye MORIS Primary Care Provider [phone] Source Comments PLEASE NOTE, if this patient [...] of kidney 02/13/2015 Overview (02/13/2015): CT abd/pelvis(12/03/14@ [facility]): 1) Rt sided Obstructive Uropathy with [...] 02/13/2015 Overview (02/13/2015): Incidental finding. CT abd/pelvis(12/03/14@ [facility]): 1) Rt sided Obstructive Uropathy with [...] kidney 02/10/2015 Overview (02/13/2015): Was seen in [facility] ER on 12/03/14 for Rt flank [...] Administration Dates Next Due Hep B, Adult/Adol ([id number]/RECOMBIVAX-AD ULT) 05/07/2015 Family History Medical History Relation [...] Industry Job Start Date Job End Date [employer] in [place]. Not on file Not on file Not [...] Plan of Treatment Not on file Insurance [facility] [employer] Member Subscriber Plan / Payer (Ef fective 2015-Present) Name:Jose Irizarry Relation to Subscriber:Self Name:Jose Irizarry Payer ID:[id number] Group ID:[id number] Type:Medicaid Address: [facility] [address] [place] [address] Care Teams Analytic Programmer Relationship Specialty Start Date End Date Rosangela Faye FNP [address] [place] [address] PCP - General 10/23/18
== END 2025-06-02 10:51 | disposition home or self-care (01) ==
LOC: HO.HMCH 10:00
PROVIDERS: PCP Internal Medicine; Visit Provider Internal Medicine
DX: E11.9 Type 2 diabetes mellitus without complications (principal); J44.9 Chronic obstructive pulmonary disease, unspecified; F33.1 Major depressive disorder, recurrent, moderate; I10 Essential (primary) hypertension; E78.2 Mixed hyperlipidemia

== ENCOUNTER → 2025-06-02 09:59 | Outpatient (BNVA) | payer OTHER, SELFPAY | PROVIDERS: PCP Internal Medicine; Visit Provider Internal Medicine | DX: E11.40 Type 2 diabetes mellitus with diabetic neuropathy, unspecified (principal); F33.1 Major depressive disorder, recurrent, moderate; I10 Essential (primary) hypertension; J44.9 Chronic obstructive pulmonary disease, unspecified; I25.10 Atherosclerotic heart disease of native coronary artery without angina pectoris; E78.2 Mixed hyperlipidemia; Z79.84 Long term (current) use of oral hypoglycemic drugs | CPT/HCPCS: 83036; 99212 ==

== ENCOUNTER 2025-07-03 12:03 | Outpatient (REF) | payer OTHER, SELFPAY ==
[2025-07-03 12:50] LABS: Hematocrit 41.5 % (42.0-52.0); Hemoglobin 13.2 g/dl (14.0-18.0); Imm Gran Abs Auto 0.03 X10*3/uL (0.00-0.03); Imm Gran Pct Auto 0.3 % (0.0-0.4); Lymphocytes Absolute Auto 4.3 X10*3/uL (1.2-4.9); MANUAL DIFF FLAG SCAN; Mean Corpuscular HGB Conc 31.8 g/dl (31.0-36.0); Mean Corpuscular Hemoglobin 26.9 pg (27.0-33.0); Mean Corpuscular Volume 84.5 fL (80.0-98.0); NRBC Abs Auto 0.000 X10*3/uL (0.0-0.012); NRBC Pct Auto 0.0 /100WBC (0.0-0.2); Platelet Count 307 X10*3/uL (160-400); Red Blood Count 4.91 X10*6/uL (4.60-5.80); SCAN SMEAR FLAG 1; White Blood Count 11.9 X10*3/uL (4.8-10.8)
[2025-07-03 13:51] LABS: Microalbum/Creatinine Ratio Ur 6.9 ug/mg cr (<30)
[2025-07-03 14:02] LABS: Alanine Aminotransferase 14 U/L (0-40); Albumin Level 4.3 g/dL (3.5-5.0); Alkaline Phosphatase 122 U/L (39-117); Anion Gap 13 (12-20); Aspartate Amino Transferase 18 U/L (5-37); Blood Urea Nitrogen 11 mg/dL (9-16); Calcium 8.9 mg/dL (8.4-10.2); Carbon Dioxide 26 mmol/L (22-29); Chloride 107 mmol/L (96-108); Cholesterol 116 mg/dL (<200); Estimated Glomerular Filt Rate > 60; HDL Cholesterol 24 mg/dL (>40); Iron 103 mcg/dL (45-160); Percent Iron Saturation 37 % (15-50); Potassium 4.1 mmol/L (3.3-5.1); Sodium 142 mmol/L (135-145); Total Iron Binding Capacity 277 mcg/dL (228-428); Total Protein 6.7 g/dL (6.5-8.0); Triglycerides 164 mg/dL (<150); Unsaturated Iron Binding 174 ug/dL
[2025-07-03 14:05] LABS: Folate 6.1 ng/mL (> or = 4.0); Vitamin B12 176 pg/mL (200-900)
--- OUTSIDE RECORDS SUMMARY | 2025-07-03 15:01 | XMS_ITS | Clinical Summary ---
Author Organization [facility] Address [address] [place] [address] Care Team Providers Care Metrology Manager Name Role Phone Rosangela Faye MORIS Primary Care Provider [phone] Source Comments PLEASE NOTE, if this patient [...] of kidney 02/13/2015 Overview (02/13/2015): CT abd/pelvis(12/03/14@ [facility]): 1) Rt sided Obstructive Uropathy with [...] 02/13/2015 Overview (02/13/2015): Incidental finding. CT abd/pelvis(12/03/14@ [facility]): 1) Rt sided Obstructive Uropathy [...] kidney 02/10/2015 Overview (02/13/2015): Was seen in [facility] ER on 12/03/14 for Rt [...] Administration Dates Next Due Hep B, Adult/Adol ([id number]/RECOMBIVAX-AD ULT) 05/07/2015 Family History Medical History Relation [...] Industry Job Start Date Job End Date [employer] in [place]. Not on file Not on file Not [...] Plan of Treatment Not on file Insurance [facility] [employer] PL[employer] Member Subscriber Plan / Payer (Ef fective 2015-Present) Name:Jose Irizarry Relation to Subscriber:Self Name:Jose Irizarry Payer ID:[id number] Group ID:[id number] Type:Medicaid Address: [facility] [address] [place] [address] Care Teams Metrology Manager Relationship Specialty Start Date End Date Rosangela Faye FNP [address] [place] [address] PCP - General 10/23/18
== END 2025-07-03 12:04 | disposition home or self-care (01) ==
LOC: HO.LAB 12:03
PROVIDERS: PCP Internal Medicine; Visit Provider Urology
DX: E53.8 Deficiency of other specified B group vitamins (principal); J44.9 Chronic obstructive pulmonary disease, unspecified; E78.5 Hyperlipidemia, unspecified; E55.9 Vitamin D deficiency, unspecified; R80.9 Proteinuria, unspecified; D64.9 Anemia, unspecified
CPT/HCPCS: 36415; 80053; 80061; 82043; 82306; 82570; 82607; 82746; 83540; 85025

== ENCOUNTER 2025-07-07 11:20 | Outpatient (AMB) | payer OTHER, SELFPAY ==
--- NOTE | 2025-07-07 11:39 | MHC.OFFVIS ---
Intake Visit Reasons: 1y/US/PSA Intake Note: Patient presents today for a 1 year follow-up on US/PSA 05/05 Renal US Urology Meds- Vitamin B6 Allergies to Antibiotic- No Known Allergies Blood Thinner- None [employer] Driver Required: No Accompanied by: Self / Same As Patient Allergies metal Allergy (Intermediate, Uncoded 06/02/25 10:41) Rash Medication List - Last Reconciled 07/07/25 by Garett Fajardo MD acetaminophen 1,000 mg (2 x 500 mg) PO Q6H PRN 30 days amlodipine 10 mg PO DAILY 90 days atorvastatin 80 mg PO BEDTIME 90 days blood sugar diagnostic (FreeStyle Lite Strips) Use 1 test strip once a day blood-glucose meter (FreeStyle Lite Meter kit) As directed bupropion HCl XL 300 mg PO DAILY ergocalciferol (vitamin D2) 1,250 mcg PO QWEEK 90 days famotidine (Pepcid) 20 mg PO BEDTIME fluticasone furoate-vilanterol 100-25 mcg/dose (Breo Ellipta) 1 inh inhalation DAILY 60 days gabapentin 300 mg PO BID 30 days gabapentin 400 mg PO BEDTIME 90 days hydrocortisone 2.5% (Anusol-HC) 1 appl LA BID-QID PRN hydroxyzine pamoate 25 mg PO TID lancets (FreeStyle Lancets) Use 1 lancet once a day lisinopril 40 mg PO DAILY 90 days metformin 1,000 mg PO BID 90 days mirtazapine 45 mg PO DAILY omeprazole 40 mg PO QAM pyridoxine (vitamin B6) 100 mg PO DAILY 90 days sertraline 100 mg PO DAILY syringe (disposable) (BD Bulk Syringe Slip Tip) As directed Ventolin HFA 90 mcg/actuation (albuterol sulfate) 2 puffs inhalation Q4-6H PRN 30 days NS [walker As directed] walker with seat and wheels HPI Comments Details: 07/07/25 History of Present Illness The patient is a 50-year-old male presenting for follow-up on kidney stones and PSA screening. The patient had a renal ultrasound performed on 05/05/25, which showed no recurrent kidney stones. He reports drinking a lot of water but is not monitoring sodium intake, which is important for kidney stone prevention. The patient is taking vitamin B6 and will have his prescription refilled. Regarding PSA screening, the patient had blood work done, but the PSA was not checked. The PSA test will be reordered, and the patient will be notified of the results. Results - Renal ultrasound on 05/05/25: No recurrent kidney stones visualized Plan 1. Kidney Stones - Continue high fluid intake and monitor sodium intake to prevent recurrence. - Refill vitamin B6 prescription. 2. Psa Screening - Reorder PSA test and notify patient of results. 07/05/24--Jose is a 49-year-old male who presents today to the office for a 1 year follow up. Reviewed results--PSA- 05/30/24--0.23 ng/mL Renal US - 03/28/24-- kidneys within normal limits no renal calculi 04/06/2023-- Jose is a 48-year-old male who presents today to the office for a 1 year follow up. He has been following up with Dr. Valdez in the past. He was prescribed vitamin B6 at that time. He states that he discontinued taking the medication 6 months ago. He reports intermittent burning sensation secondary to urinating. He denies any family history of prostate cancer. He states he consumes 4-5 glasses of water a day. He had a renal US done on 02/09/2023 [facility] Medical History Obesity (BMI 30-39.9) Morbid obesity due to excess calories Family history of pancreatic cancer Diabetes mellitus Dyspnea on exertion Somnolence, daytime Loud snoring COPD (chronic obstructive pulmonary disease) Smoker RADHA (obstructive sleep apnea) Mixed hyperlipidemia Bleeding hemorrhoid Mild recurrent major depression Wheezing Moderately severe major depression Renal calculi Chronic pain syndrome Right sided sciatica Depression GERD (gastroesophageal reflux disease) Morbid obesity Impaired glucose tolerance Dyslipidemia Essential hypertension Disc degeneration, lumbar Other spondylosis with radiculopathy, lumbar region Surgical History Hx of colonoscopy History of extraction of renal calculus History of toe surgery History of vasectomy History of appendectomy Family History Father Hypertension Sciatica Mother Stroke Hypertension Diabetes Brother Stroke Pancreatic cancer Family/Other Substance use disorder Social History Household Members: Family Housing: House Do you presently have visiting nurse or other home services: No Alcohol intake: former Comment: medicated, see MAR Patient Tobacco Use Status: Current everyday Tobacco user Tobacco use type: Cigarette Cigarettes Per Day: 2 Years Smoked: 20 e-Cigarette/Vaping Use: Never Used Second Hand Smoke Exposure: Yes Substance Use Type: Marijuana service: No Current occupational status: unemployed Cognitive needs: Yes (Cane) Hearing needs: No Vision needs: Yes Results Reviewed Results Reviewed: Date of Service: 05/05/25 EXAMINATION: US KIDNEY BILATERAL HISTORY: Z87.442 - Personal history of urinary calculi TECHNIQUE: Real-time grayscale ultrasound imaging of the kidneys was performed and images were reviewed. COMPARISON: Comparison is made with the prior examination dated 03/28/2024. FINDINGS: Right kidney: The right kidney measures 10.9 x 5.2 x 5.6 cm. Renal parenchymal echotexture and thickness are normal. There are no masses. There is no hydronephrosis or renal calculi. Left Kidney: The left kidney measures 11.1 x 5.5 x 5.2 cm. Renal parenchymal echotexture and thickness are normal. There are no masses. There is no hydronephrosis or renal calculi. IMPRESSION: Unremarkable renal ultrasound. Date of Service: 03/28/24 US RETROPERITONEAL LIMITED (RENAL ONLY) CLINICAL INFORMATION: Personal history of urinary calculi. COMPARISON: Renal ultrasound 02/09/2023 and 01/03/2022. MRI abdomen 03/25/2022. X-ray abdomen KUB 04/13/2021. CT abdomen and pelvis 04/04/2021. TECHNIQUE: Real-time imaging of the kidneys. Limited visualization due to bowel gas and body habitus. FINDINGS: RIGHT KIDNEY: 11.1 x 5.7 x 5.8 cm (SAG x AP x TRV). No hydronephrosis. No renal calculi. Renal cortical thickness is normal. Limited visualization. LEFT KIDNEY: 11.8 x 6.4 x 4.4 cm (SAG x AP x TRV). No hydronephrosis. No renal calculi. Renal cortical thickness is normal. Limited visualization. IMPRESSION: No hydronephrosis. No renal calculi. EXAMINATION: US RETROPERITONEAL LIMITED (RENAL ONLY) CLINICAL INFORMATION: Calculus of kidney. COMPARISON: MRI abdomen 03/25/2022. Renal ultrasound 01/03/2022 and 05/04/2021. X-ray KUB 04/13/2021. CT abdomen and pelvis 04/04/2021. FINDINGS: RIGHT KIDNEY: 11.0 x 4.6 x 5.2 cm (SAG x AP x TRV). The kidney is normal in size, contour, and echogenicity. Renal cortical thickness is normal. No calculi or focal parenchymal lesions. No hydronephrosis. LEFT KIDNEY: 10.5 x 6.4 x 5.3 cm (SAG x AP x TRV). The kidney is normal in size, contour, and echogenicity. Renal cortical thickness is normal. No calculi or focal parenchymal lesions. No hydronephrosis. Incidental note made of an echogenic liver consistent with hepatic steatosis. IMPRESSION: 1. Normal-appearing kidneys. ? 2. Incidentally noted hepatic steatosis. Assessment & Plan Assessment & Plan (1) Screening PSA (prostate specific antigen): Code(s): Z12.5 - Encounter for screening for malignant neoplasm of prostate Category: Medical (2) History of kidney stones: Code(s): Z87.442 - Personal history of urinary calculi Category: Medical Plan Plan 1. Kidney Stones - Continue high fluid intake and monitor sodium intake to prevent recurrence. - Refill vitamin B6 prescription. 2. Psa Screening - Reorder PSA test and notify patient of results. Orders: Orders AMB Urinalysis Automated Today Z13.9 - Encounter for screening, unspecified Medications: Refilled pyridoxine (vitamin B6) 100 mg PO DAILY 90 tabs 3RF 90 days N20.0 - Calculus of kidney Patient Instructions: The patient had an opportunity to ask questions regarding treatment plan. The patient expressed understanding and agreement with the above treatment plan. The patient is aware they should contact our office by phone for worsening of their current condition or the appearance of new symptoms. Compliance is encouraged with any medications and followup testing that is ordered. It is a privilege to be allowed the opportunity to participate in the urologic care of your patient. If you have any questions or concerns regarding treatment for the above conditions please do not hesitate to contact me. The office telephone contact is [phone]. This note is constructed in part using voice recognition software. While every effort has been made to ensure accuracy grain wafer machine operator errors may have been included. Yours sincerely, Garett Fajardo MD Scribe Plan - Not visible on output: Patient was informed and verbally consented to the use of an ambient scribe for clinic note documentation during this visit. Coding Level of Care Code Est Pt Level 3 (21411) Diagnoses Screening PSA (prostate specific antigen) Z12.5 History of kidney stones Z87.442
--- OUTSIDE RECORDS SUMMARY | 2025-07-07 13:43 | XMS_ITS | Clinical Summary ---
Author Organization [facility] Address [address] [place] [address] Care Team Providers Care Radiologic Technologist Mammogram Name Role Phone Rosangela Faye MORIS Primary Care Provider [phone] Source Comments PLEASE NOTE, if this patient [...] of kidney 02/13/2015 Overview (02/13/2015): CT abd/pelvis(12/03/14@ [facility]): 1) Rt sided Obstructive Uropathy with [...] 02/13/2015 Overview (02/13/2015): Incidental finding. CT abd/pelvis(12/03/14@ [facility]): 1) Rt sided Obstructive Uropathy [...] kidney 02/10/2015 Overview (02/13/2015): Was seen in [facility] ER on 12/03/14 for Rt flank pain. [...] Administration Dates Next Due Hep B, Adult/Adol ([id number]/RECOMBIVAX-AD ULT) 05/07/2015 Family History Medical History Relation [...] Industry Job Start Date Job End Date [employer] in [place]. Not on file Not on file Not [...] Plan of Treatment Not on file Insurance [facility] [employer] PLAN Member Subscriber Plan / Payer (Ef fective 2015-Present) Name:Jose Irizarry Relation to Subscriber:Self Name:Jose Irizarry Payer ID:[id number] Group ID:[id number] Type:Medicaid Address: [facility] [address] [place] [address] Care Teams Radiologic Technologist Mammogram Relationship Specialty Start Date End Date Rosangela Faye FNP [address] [place] [address] PCP - General 10/23/18
== END 2025-07-07 12:30 | disposition home or self-care (01) ==
LOC: HO.HUSH 11:21
PROVIDERS: PCP Internal Medicine; Visit Provider Urology
DX: Z12.5 Encounter for screening for malignant neoplasm of prostate (principal); Z87.442 Personal history of urinary calculi; Z13.9 Encounter for screening, unspecified
CPT/HCPCS: 99213

== ENCOUNTER → 2025-07-07 11:20 | Outpatient (BNVA) | payer OTHER, SELFPAY | PROVIDERS: PCP Internal Medicine; Visit Provider Urology | DX: Z71.2 Person consulting for explanation of examination or test findings (principal); Z87.442 Personal history of urinary calculi | CPT/HCPCS: 81003; 99212 ==